=== PATIENT | female | born 1935 | race Caucasian/White ===

== ENCOUNTER 2017-01-12 10:38 | Outpatient (CLI) | payer MEDICARE ==
[2017-01-12 10:53] LABS: Anion Gap 13 mmol/L (10-20); BUN (Urea Nitrogen) 14 mg/dL (9.8-20.1); Calc. Creatinine Clearance 0 mL/min (70-130); Calcium 9.2 mg/dL (7.8-10.44); Carbon Dioxide 26 mmol/L (23-31); Chloride 109 mmol/L (98-107); Estimated GFR-MDRD 86; Glucose 100 mg/dL (83-110); Potassium 4.3 mmol/L (3.5-5.1); Sodium 144 mmol/L (136-145)
== END 2017-01-12 10:39 | disposition home or self-care (01) ==
LOC: MADLABBHPM 10:38
PROVIDERS: ATTEND Family Medicine
DX: R53.1 Weakness (principal)
CPT/HCPCS: 36415; 80048

== ENCOUNTER 2017-01-12 11:31 | Emergency (ER) | payer MEDICARE ==
[2017-01-12] MEDS ORDERED: cloNIDine HCl 0.1 MG TAB ONE (11:41)
[2017-01-12 12:09] LABS: #Eosinphils 0.1 thou/uL (0.0-0.7); #Lymphocytes 1.2 thou/uL (1.20-3.40); #Monocytes 0.3 thou/uL (0.11-0.59); %Basophils 0.6 % (0.0-1.0); %Eosinophils 2.9 % (0.0-10.0); %Lymphocytes 31.7 % (21.0-51.0); %Monocytes 8.7 % (0.0-10.0); %Neutrophils 56.2 % (42.0-75.0); Hemoglobin 12.9 g/dL (12.0-16.0); Mean Corpuscular HGB CONC 32.1 g/dL (32.0-36.0); Mean Corpuscular Hemoglobin 31.4 pg (27.0-31.0); Mean Corpuscular Volume 97.8 fl (81.0-99.0); Mean Platelet Volume 7.2 fL (7.4-10.4); Platelet Count 162 thou/uL (130-400); RBC Distribution Width 12.5 % (11.5-14.5); Red Blood Cell (RBC) Count 4.11 mill/uL (4.20-5.40); White Blood Cell (WBC) Count 3.6 thou/uL (4.8-10.8)
--- NOTE | 2017-01-12 12:11 | CT ---
CT BRAIN WITHOUT CONTRAST: HISTORY: Altered mental status. FINDINGS: There are changes of cortical atrophy and chronic small-vessel ischemic disease. The ventricle size is appropriate, and the basilar cisterns are patent. No evidence of acute infarct, hemorrhage, mid line shift, or abnormal extraaxial fluid collections are seen. The bony calvarium is intact. IMPRESSION: No CT evidence of acute intracranial process. POS: [facility]
--- NOTE | 2017-01-12 12:40 | RAD ---
RIGHT RIB TWO VIEW: History: Right rib pain with cough. Comparison: None. FINDINGS: No displaced fracture of the right ribs. Heart size is enlarged. Bibasilar atelectasis. No pneumothorax. The pulmonary arteries appear prominent. IMPRESSION: 1. No displaced rib fracture. 2. Enlarged pulmonary artery suggestive of pulmonary arterial hypertension. 3. Cardiomegaly and left basilar atelectasis. POS: [facility]
== END 2017-01-12 12:57 | disposition home or self-care (01) ==
LOC: MADERS 11:31
DX: I16.0 Hypertensive urgency (principal); M81.0 Age-related osteoporosis without current pathological fracture; K21.9 Gastro-esophageal reflux disease without esophagitis; Z87.891 Personal history of nicotine dependence; Z79.891 Long term (current) use of opiate analgesic; Z79.01 Long term (current) use of anticoagulants; Z79.899 Other long term (current) drug therapy; Z86.711 Personal history of pulmonary embolism; Z86.718 Personal history of other venous thrombosis and embolism
CPT/HCPCS: 70450; 85025; 93005

== ENCOUNTER 2017-06-05 19:41 | Emergency (ER) | payer MEDICARE ==
[2017-06-05] MEDS ORDERED: Morphine Sulfate 2 MG/ML SYRINGE ONE (20:01)
[2017-06-05] MEDS ORDERED: Diazepam 10 MG/2 ML SYRINGE ONE (20:01)
[2017-06-05 20:30] LABS: #Eosinphils 0.2 thou/uL (0.0-0.7); #Lymphocytes 1.1 thou/uL (1.20-3.40); #Monocytes 0.5 thou/uL (0.11-0.59); #Neutrophils 5.6 thou/uL (1.40-6.50); %Basophils 0.4 % (0.0-1.0); %Eosinophils 2.3 % (0.0-10.0); %Lymphocytes 15.3 % (21.0-51.0); %Monocytes 6.1 % (0.0-10.0); %Neutrophils 75.9 % (42.0-75.0); Hemoglobin 14.2 g/dL (12.0-16.0); Mean Corpuscular HGB CONC 33.5 g/dL (32.0-36.0); Mean Corpuscular Hemoglobin 32.6 pg (27.0-31.0); Mean Corpuscular Volume 97.1 fl (81.0-99.0); Mean Platelet Volume 8.2 fL (7.4-10.4); Platelet Count 154 thou/uL (130-400); RBC Distribution Width 12.2 % (11.5-14.5); Red Blood Cell (RBC) Count 4.36 mill/uL (4.20-5.40); White Blood Cell (WBC) Count 7.3 thou/uL (4.8-10.8)
[2017-06-05 20:40] LABS: ALT (SGPT) 9 U/L (8-55); AST (SGOT) 16 U/L (5-34); Albumin 3.5 g/dL (3.4-4.8); Alkaline Phosphatase 82 U/L (40-150); Anion Gap 13 mmol/L (10-20); BUN (Urea Nitrogen) 22 mg/dL (9.8-20.1); Bilirubin, Total 0.5 mg/dL (0.2-1.2); Calc. Creatinine Clearance 0 mL/min (70-130); Calcium 8.8 mg/dL (7.8-10.44); Carbon Dioxide 26 mmol/L (23-31); Chloride 108 mmol/L (98-107); Estimated GFR-MDRD 81; Globulin 2.6 g/dL (2.4-3.5); Glucose 121 mg/dL (83-110); Protein, Total 6.1 g/dL (6.0-8.3); Sodium 143 mmol/L (136-145)
[2017-06-05 20:41] LABS: CRP (Inflammatory) Less than 0.50 mg/dL (= or < 0.5); Lipase 23 U/L (8-78)
[2017-06-05 21:18] LABS: Clarity Clear (Clear); Leukocyte Negative (Negative); Specific Gravity, Urine 1.025 (1.005-1.030); pH, Urine 7.5 (5.0-9.0)
[2017-06-05 21:19] LABS: Bilirubin Negative (Negative); Blood, Urine Moderate (Negative); Glucose, Urine (Dipstick) Negative (Negative); Nitrite Negative (Negative); Protein, Urine (Dipstick) 30 mg/dL (Neg-Trace)
[2017-06-05 21:20] LABS: Squamous Epithelial 0-3 HPF (0-3)
[2017-06-05 21:21] LABS: Bacteria/HPF Rare-Few HPF (None Seen)
[2017-06-05] MEDS ORDERED: Ciprofloxacin 500 MG TAB ONE (21:54)
--- NOTE | 2017-06-05 22:36 | CT ---
CT LUMBAR SPINE WITHOUT CONTRAST: History: Low back pain. FINDINGS: Bones are diffusely osteopenic. There are changes of vertebroplasty involving the compressed L1 vert ebral body. Mild compression of T12 and T11 vertebral bodies is seen. There is also mild compression of the L2 vertebral body. No significant retropulsion is seen. POS: [facility]
--- NOTE | 2017-06-05 22:42 | CT ---
CT THORACIC SPINE WITHOUT CONTRAST: History: Back pain. FINDINGS: Bones are diffusely osteopenic. There are changes of vertebroplasty in the compressed L1 and descend ing vertebral bodies. Multiple compressed thoracic vertebral bodies are seen. No significant retropu lsion is seen. There is increased kyphosis of the thoracic spine. Compression of vertebral bodies is noted at T4, T5, T6, T7, T8, T9, T10, T11, and T12. POS: [facility]
== END 2017-06-05 23:37 | disposition short-term general hospital (02) ==
LOC: MADERS 19:41
DX: N39.0 Urinary tract infection, site not specified (principal); M81.0 Age-related osteoporosis without current pathological fracture; I10 Essential (primary) hypertension; D50.9 Iron deficiency anemia, unspecified; K21.9 Gastro-esophageal reflux disease without esophagitis; E78.00 Pure hypercholesterolemia, unspecified; J45.909 Unspecified asthma, uncomplicated; Z86.73 Personal history of transient ischemic attack (TIA), and cerebral infarction without residual deficits; Z87.891 Personal history of nicotine dependence; Z79.899 Other long term (current) drug therapy
CPT/HCPCS: 51701; 72128; 72131; 80053; 81001; 82150; 83690; 83880; 85025; 86140; 87086; 96374; 96375; A4353; J2270; J3360

== ENCOUNTER 2017-06-23 12:44 | Inpatient (IN) | payer MEDICARE ==
[2017-06-23] MEDS ORDERED: Milk Of Magnesia 30 ML UDCUP PO PRN (14:38)
[2017-06-23] MEDS: Acetaminophen 325 MG TAB PO SCH ×2 (15:34→20:47)
[2017-06-23] MEDS ORDERED: Furosemide 40 MG TAB PO PRN (18:09)
[2017-06-23] MEDS: Gabapentin 100 MG CAP PO SCH (20:47)
[2017-06-24 05:27] LABS: Hemoglobin 11.9 g/dL (12.0-16.0); Mean Corpuscular Hemoglobin 30.8 pg (27.0-31.0); Mean Corpuscular Volume 99.5 fl (81.0-99.0); Mean Platelet Volume 6.8 fL (7.4-10.4); Platelet Count 282 thou/uL (130-400); RBC Distribution Width 12.7 % (11.5-14.5); Red Blood Cell (RBC) Count 3.86 mill/uL (4.20-5.40)
[2017-06-24 05:29] LABS: ALT (SGPT) 13 U/L (8-55); AST (SGOT) 19 U/L (5-34); Albumin 3.2 g/dL (3.4-4.8); Alkaline Phosphatase 103 U/L (40-150); Anion Gap 15 mmol/L (10-20); BUN (Urea Nitrogen) 20 mg/dL (9.8-20.1); Bilirubin, Total 0.5 mg/dL (0.2-1.2); Calc. Creatinine Clearance 54 mL/min (70-130); Calcium 9.3 mg/dL (7.8-10.44); Carbon Dioxide 29 mmol/L (23-31); Cardiac Risk 2.4 (Less than 4.5); Chloride 103 mmol/L (98-107); Cholesterol 110 mg/dl (< 200 Desired); Estimated GFR-MDRD 59; Globulin 3.2 g/dL (2.4-3.5); Glucose 102 mg/dL (83-110); HDL Cholesterol 45 mg/dL (>60 Neg Risk); LDL Cholesterol, Calculated 48 mg/dL; Potassium 4.1 mmol/L (3.5-5.1); Protein, Total 6.4 g/dL (6.0-8.3); Sodium 143 mmol/L (136-145); Triglycerides 86 mg/dL (Less than 150)
[2017-06-24 05:34] LABS: Eosinophils 1 % (0-10); Lymphocytes 11 % (21-51); MDiff Complete? YES; Monocytes 4 % (0-10); Neutrophil 39 % (42-75); PLT Morphology Comment Appears Adequate; Reactive Lymphocytes 45 % (0-10)
[2017-06-24] MEDS: traMADol HCl 50 MG TAB PO PRN ×2 (05:34→16:02)
[2017-06-24] MEDS: Gabapentin 100 MG CAP PO SCH ×3 (08:40→20:55)
[2017-06-24] MEDS: Acetaminophen 325 MG TAB PO SCH (08:40)
[2017-06-24] MEDS: Ezetimibe 10 MG TAB PO SCH (08:40)
[2017-06-24] MEDS: TYLENOL 650 MG PO SCH ×2 (14:42→20:57)
[2017-06-24] MEDS: Mag-Al Plus 1200 MG/1200 MG/120 MG/30 ML UDCUP PO PRN (14:42)
[2017-06-24] MEDS: Rivaroxaban 10 MG TAB PO SCH (16:01)
[2017-06-24] MEDS: Clotrimazole 1% Cream 15 GM TUBE TOP SCH (20:56)
[2017-06-25] MEDS: Mag-Al Plus 1200 MG/1200 MG/120 MG/30 ML UDCUP PO PRN ×2 (07:14→21:08)
[2017-06-25] MEDS: Ezetimibe 10 MG TAB PO SCH (08:08)
[2017-06-25] MEDS: Gabapentin 100 MG CAP PO SCH ×3 (08:09→20:21)
[2017-06-25] MEDS: Clotrimazole 1% Cream 15 GM TUBE TOP SCH ×2 (08:13→21:07)
[2017-06-25] MEDS: TYLENOL 650 MG PO SCH ×3 (08:44→20:21)
[2017-06-25] MEDS: traMADol HCl 50 MG TAB PO PRN ×2 (11:59→21:06)
[2017-06-25] MEDS: Rivaroxaban 10 MG TAB PO SCH (16:01)
[2017-06-26] MEDS: traMADol HCl 50 MG TAB PO PRN (04:28)
[2017-06-26] MEDS: Ezetimibe 10 MG TAB PO SCH (08:29)
[2017-06-26] MEDS: TYLENOL 650 MG PO SCH ×3 (08:29→21:00)
[2017-06-26] MEDS: Clotrimazole 1% Cream 15 GM TUBE TOP SCH ×2 (08:29→21:03)
[2017-06-26] MEDS: Gabapentin 100 MG CAP PO SCH ×3 (08:29→21:01)
[2017-06-26] MEDS: Mag-Al Plus 1200 MG/1200 MG/120 MG/30 ML UDCUP PO PRN ×2 (08:53→22:41)
[2017-06-26] MEDS: tiZANidine HCl 4 MG TAB PO PRN ×2 (10:38→22:42)
[2017-06-26] MEDS: Rivaroxaban 10 MG TAB PO SCH (17:14)
[2017-06-27] MEDS: traMADol HCl 50 MG TAB PO PRN ×2 (04:41→15:31)
[2017-06-27] MEDS: tiZANidine HCl 4 MG TAB PO PRN ×2 (07:37→15:31)
[2017-06-27] MEDS: Mag-Al Plus 1200 MG/1200 MG/120 MG/30 ML UDCUP PO PRN (07:45)
[2017-06-27] MEDS: Clotrimazole 1% Cream 15 GM TUBE TOP SCH ×2 (07:54→19:48)
[2017-06-27] MEDS: Gabapentin 100 MG CAP PO SCH ×3 (08:50→19:49)
[2017-06-27] MEDS: TYLENOL 650 MG PO SCH ×3 (08:51→19:49)
[2017-06-27] MEDS: Ezetimibe 10 MG TAB PO SCH (08:51)
[2017-06-27] MEDS: HYDROcodone/Acetaminophen 5/325 mg Tablet PO PRN (10:19)
[2017-06-27] MEDS ORDERED: Furosemide 40 MG TAB PO PRN (10:26)
[2017-06-27] MEDS: Rivaroxaban 10 MG TAB PO SCH (17:16)
[2017-06-28] MEDS: traMADol HCl 50 MG TAB PO PRN (01:21)
[2017-06-28] MEDS: Mag-Al Plus 1200 MG/1200 MG/120 MG/30 ML UDCUP PO PRN (07:52)
[2017-06-28] MEDS: Ezetimibe 10 MG TAB PO SCH (08:45)
[2017-06-28] MEDS: Gabapentin 100 MG CAP PO SCH ×3 (08:45→21:46)
[2017-06-28] MEDS: TYLENOL 650 MG PO SCH ×3 (08:48→21:46)
[2017-06-28] MEDS: Clotrimazole 1% Cream 15 GM TUBE TOP SCH ×2 (08:57→21:45)
[2017-06-28] MEDS: Rivaroxaban 10 MG TAB PO SCH (17:37)
[2017-06-29] MEDS: traMADol HCl 50 MG TAB PO PRN (03:24)
[2017-06-29 04:47] LABS: Hemoglobin 11.1 g/dL (12.0-16.0); Platelet Count 185 thou/uL (130-400)
[2017-06-29] MEDS: TYLENOL 650 MG PO SCH ×3 (07:59→21:04)
[2017-06-29] MEDS: Gabapentin 100 MG CAP PO SCH ×3 (09:02→21:02)
[2017-06-29] MEDS: Clotrimazole 1% Cream 15 GM TUBE TOP SCH ×2 (09:03→21:03)
[2017-06-29] MEDS: Ezetimibe 10 MG TAB PO SCH (09:03)
[2017-06-29] MEDS ORDERED: HYDROcodone/Acetaminophen 5/325 mg Tablet PO PRN (09:42)
[2017-06-29] MEDS: Lidocaine 5% Patch TD SCH (10:17)
[2017-06-29] MEDS: Mag-Al Plus 1200 MG/1200 MG/120 MG/30 ML UDCUP PO PRN (12:09)
--- NOTE | 2017-06-29 14:45 | PRG ---
DATE OF SERVICE: 06/29/2017 SUBJECTIVE: The patient said she is feeling a little better. She did use the hydrocodone 5/325 one tablet and it does help very well with her back pain, but it seems to over sedate her. She asked t o allow her to take half up to 1 at a time. This morning, the approval was given and she has tried half tablet and it did help her without making her overly sedate. Her reflux seemed to be a little bit better. She is working with physical therapy. OBJECTIVE: The patient is sitting up in her wheelchair. She is alert and appears comfortable and i n no acute distress. Her vital signs show a temperature of 96.6, pulse 72, blood pressure 132/60, r espirations 14, O2 sat 95% on room air. Lungs are clear. Heart, regular rate. Patient is in a sea gracie position, but due to her marked kyphosis, her body is leaned forwarded and it places her neck in the hyperextended position. Her abdomen protrudes as a result of this positioning. Extremities, n o edema. Her labs show an H and H of 11.1 and 34.0, platelet count 185,000. Her GFR is 75. ASSESSMENT: 1. Weakness and gait abnormality. A. Slowly improving, but has not yet returned to a functional level where she could manage independ ently at home. 2. Severe osteoporosis. A. History of compression fractures of T4 through T12 and L1 and L2. B. Recent acute exacerbation, improving. 3. Gastroesophageal reflux disease. A. Recent exacerbation, improved. 4. Coronary artery disease, stable, asymptomatic. 5. Hypertension, controlled. 6. Venous insufficiency, stable. 7. History of cancer of the colon. Status post right hemicolectomy. No evidence of disease. PLAN: Continue PT and OT. Continue present medicines. Continue the antireflux measures.
[2017-06-29] MEDS: Rivaroxaban 10 MG TAB PO SCH (17:24)
[2017-06-29] MEDS: Lidocaine Patch Removal 1 EACH TOP SCH (21:03)
[2017-06-30] MEDS: tiZANidine HCl 4 MG TAB PO PRN ×2 (08:22→13:01)
[2017-06-30] MEDS: HYDROcodone/Acetaminophen 5/325 mg Tablet PO PRN (08:22)
[2017-06-30] MEDS: Ezetimibe 10 MG TAB PO SCH (08:24)
[2017-06-30] MEDS: Clotrimazole 1% Cream 15 GM TUBE TOP SCH ×2 (08:25→21:01)
[2017-06-30] MEDS: Gabapentin 100 MG CAP PO SCH ×3 (08:25→20:53)
[2017-06-30] MEDS: Lidocaine 5% Patch TD SCH (08:26)
[2017-06-30] MEDS: TYLENOL 650 MG PO SCH ×3 (08:30→20:53)
[2017-06-30] MEDS: traMADol HCl 50 MG TAB PO PRN (13:00)
[2017-06-30] MEDS: Rivaroxaban 10 MG TAB PO SCH (17:09)
[2017-06-30] MEDS: Lidocaine Patch Removal 1 EACH TOP SCH (20:54)
[2017-07-01 05:18] LABS: Platelet Count 157 thou/uL (130-400)
[2017-07-01] MEDS: tiZANidine HCl 4 MG TAB PO PRN (05:30)
[2017-07-01] MEDS: traMADol HCl 50 MG TAB PO PRN (05:30)
[2017-07-01] MEDS: Gabapentin 100 MG CAP PO SCH ×3 (09:03→21:45)
[2017-07-01] MEDS: Lidocaine 5% Patch TD SCH (09:03)
[2017-07-01] MEDS: Clotrimazole 1% Cream 15 GM TUBE TOP SCH ×2 (09:04→21:46)
[2017-07-01] MEDS: Ezetimibe 10 MG TAB PO SCH (09:04)
[2017-07-01] MEDS: TYLENOL 650 MG PO SCH ×3 (09:04→21:49)
--- NOTE | 2017-07-01 10:46 | PRG ---
DATE OF SERVICE: 07/01/2017 SUBJECTIVE: The patient said she feels a little washed out this morning. She had a little soreness in her back, but this is not unusual for her to have some days where her back is a little more pain ful. Last evening she had a drop in her pulse down to 48 with blood pressure in the 80s. Her propr anolol, Benazepril and amlodipine were all held and the blood pressure and pulse came up. OBJECTIVE: The patient is sitting in a chair. She is oriented x3, looks comfortable and in no acut e distress. Her temperature is 97.1. Her pulse is up 56, respirations 20, blood pressure earlier w as 86/43, but now is 113/60. Lungs are clear. Heart, regular rate. Extremities: No edema. Her H\T\H this morning is 11 and 33.4, platelet count 157,000. GFR 68. ASSESSMENT: 1. Weakness and gait abnormality. A. Gradually improving, but not yet to where she will be able to managed at home independently. 2. Severe osteoporosis. A. History of compression fractures of T4 through T12 and L1 and L2. B. Recent acute exacerbation that is improving. 3. Gastroesophageal reflux disease. A. Recent exacerbation, improved. 4. Coronary heart disease, stable, asymptomatic. 5. Hypertension. A. Episode of hypotension and bradycardia on the evening of 06/30/2017, secondary to the effect of m edication. This has improved since the Inderal and amlodipine and benazepril has been held. 6. Venous insufficiency, stable. 7. History of cancer of the colon. Status post right hemicolectomy. No evidence of disease. 8. Tremors, stable. PLAN: The patient is gradually improving. The hypotensive and bradycardic episode yesterday is fro m the effect of the medicines. The medicines have been held. Anticipate that her pressure will gra dually rises and we will probably have to restart her antihypertensives. She was on benazepril 20 m g b.i.d. and we will probably first restart this may be just 1 time a day. The propranolol she was receiving for her tremors, her tremors are stable and we will see if we can get by without this. Th e amlodipine, we will just wait and see if this will need to be restarted. 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
[2017-07-01] MEDS: Rivaroxaban 10 MG TAB PO SCH (18:08)
[2017-07-01] MEDS: Lidocaine Patch Removal 1 EACH TOP SCH (21:50)
[2017-07-02] MEDS: traMADol HCl 50 MG TAB PO PRN (03:36)
[2017-07-02] MEDS: tiZANidine HCl 4 MG TAB PO PRN ×2 (03:38→19:20)
[2017-07-02] MEDS: TYLENOL 650 MG PO SCH ×3 (08:27→20:42)
[2017-07-02] MEDS: Gabapentin 100 MG CAP PO SCH ×3 (08:27→20:41)
[2017-07-02] MEDS: Ezetimibe 10 MG TAB PO SCH (08:27)
[2017-07-02] MEDS: Clotrimazole 1% Cream 15 GM TUBE TOP SCH ×2 (08:28→20:41)
[2017-07-02] MEDS: Lidocaine 5% Patch TD SCH (08:28)
[2017-07-02] MEDS: Rivaroxaban 10 MG TAB PO SCH (17:15)
--- NOTE | 2017-07-02 17:17 | PRG ---
DATE OF SERVICE: 07/02/2017 SUBJECTIVE: The patient said, this morning, she just woke up and felt like she was shaking. She no ticed severe tremors in her arms, her back, particularly on the right side. Her blood pressures hav e been normal. Her pulse rate has also been up at 104 this morning. OBJECTIVE: GENERAL: The patient is sitting in a Nell chair, looks comfortable, but has severe tremors in the a ke, particularly on the right side. VITAL SIGNS: Her temperature is 97.2, pulse 72, respirations 20, blood pressure 141/70, and O2 sat 98%. LUNGS: Clear. HEART: Regular rate. ASSESSMENT: 1. Weakness and gait abnormality. A. Gradually improving, but not yet where she could manage at home independently. 2. Severe osteoporosis. A. History of compression fractures of T4 through T12 and L1 and L2, the recent acute exacerbat ion that continues to improve. 3. Gastroesophageal reflux disease, a recent exacerbation, improved and controlled. 4. Coronary heart disease, asymptomatic. 5. Hypertension, controlled. A. Episode of hypotension and bradycardia secondary to the combined effect of the benazepril, amlodipine and the Inderal has resolved. Blood pressure now 140/70 and pulse up to 72. 6. Venous insufficiency, stable. 7. History of cancer of the colon. A. Status post right hemicolectomy. B. No evidence of disease. 8. Intention tremors. A. Marked increased symptoms today since she has been off of the Inderal 40 mg b.i.d. since 06/21. PLAN: Patient is doing alright, but she has had severe problems with her tremors. The Inderal 40 m g b.i.d. has to be stopped due to the bradycardia and as a result, her tremors have come back. Sinc e her blood pressure and pulse have normalized, we will try reintroduction of beta lacho using Ind [place], but at a lower dose. We will place her on 20 mg b.i.d. and see how she tolerates this. Ge carver PT.
[2017-07-02] MEDS ORDERED: Rivaroxaban 10 MG TAB PO SCH (17:30)
[2017-07-02] MEDS: Lidocaine Patch Removal 1 EACH TOP SCH (20:42)
[2017-07-03 07:28] LABS: Hemoglobin 12.6 g/dL (12.0-16.0); Platelet Count 182 thou/uL (130-400)
[2017-07-03] MEDS: Lidocaine 5% Patch TD SCH (09:03)
[2017-07-03] MEDS: Ezetimibe 10 MG TAB PO SCH (09:04)
[2017-07-03] MEDS: Clotrimazole 1% Cream 15 GM TUBE TOP SCH ×2 (09:04→21:15)
[2017-07-03] MEDS: Gabapentin 100 MG CAP PO SCH ×3 (09:04→21:19)
[2017-07-03] MEDS: TYLENOL 650 MG PO SCH ×3 (09:05→21:18)
[2017-07-03] MEDS: traMADol HCl 50 MG TAB PO PRN ×2 (13:16→21:17)
[2017-07-03] MEDS: tiZANidine HCl 4 MG TAB PO PRN ×2 (13:18→21:17)
[2017-07-03] MEDS: Rivaroxaban 10 MG TAB PO SCH (17:17)
[2017-07-03] MEDS: Lidocaine Patch Removal 1 EACH TOP SCH (21:19)
[2017-07-04] MEDS: Lidocaine 5% Patch TD SCH (08:38)
[2017-07-04] MEDS: Gabapentin 100 MG CAP PO SCH ×3 (08:39→20:38)
[2017-07-04] MEDS: Clotrimazole 1% Cream 15 GM TUBE TOP SCH ×2 (08:39→20:41)
[2017-07-04] MEDS: TYLENOL 650 MG PO SCH ×3 (08:39→20:41)
[2017-07-04] MEDS: Ezetimibe 10 MG TAB PO SCH (08:39)
--- NOTE | 2017-07-04 09:03 | PRG ---
DATE OF SERVICE: 07/04/2017 SUBJECTIVE: The patient said she feels very good today. Her tremors are much better and not bother ing her this morning. The patient said her back is much better. She is hoping to go home soon. OBJECTIVE: The patient is sitting up in a chair, smiling. She has no tremors in her hand, looks ve ry comfortable and in no distress. Temp 96.7, pulse 90, respirations 18, O2 sat 97% on room air, bl ood pressure 136/63. Lungs are clear. Heart, regular rate. Extremities: No edema. Neurologic, a lert and oriented x3. Tremors, there are none present in the arms at present. ASSESSMENT: 1. Weakness and gait abnormality. A. Gradual improvement. 2. Severe osteoporosis. A. History of compression fractures at T4 through T12 and L1 and L2. Recent acute exacerbation vannesa t continues to improve. 3. Gastroesophageal reflux disease. A. Recent acute exacerbation, controlled. 4. Coronary heart disease, asymptomatic. 5. Hypertension. A. Episode of hypotension, bradycardia secondary to a combined effect of the benazepril, amlodipin e and Inderal that were stopped. B. Inderal, has been restarted at a lower dose that is 20 mg b.i.d. due to a recurrence of her sever e tremors. Blood pressure and pulse have both been normal with no more hypotensive or bradycardic e pisodes as of 07/04/2017. 6. Venous insufficiency, stable. 7. History of cancer of the colon. A. Status post right hemicolectomy. B. No evidence of disease. 8. Intention tremors. A. Marked increase in symptoms as of 07/03/2017 after Inderal was stopped, necessitating restarting of the Inderal at a lower dose i.e., 20 mg b.i.d. on 07/03/2017. B. Controlled as of 07/04/2017. PLAN: Continue present care. Continue physical therapy. The patient's condition is improved, but she is not ready to return to her home where she lives by herself and it is recommended that she st ay at least another week to try to help improve her functional capabilities.
[2017-07-04] MEDS: Rivaroxaban 10 MG TAB PO SCH (17:21)
[2017-07-04 20:01] VITALS: BMI 32.9
[2017-07-04] MEDS: tiZANidine HCl 4 MG TAB PO PRN (20:39)
[2017-07-04] MEDS: Lidocaine Patch Removal 1 EACH TOP SCH (20:39)
[2017-07-05 06:15] LABS: Platelet Count 143 thou/uL (130-400)
[2017-07-05] MEDS: traMADol HCl 50 MG TAB PO PRN (08:19)
[2017-07-05] MEDS: tiZANidine HCl 4 MG TAB PO PRN ×2 (08:19→13:32)
[2017-07-05] MEDS: Ezetimibe 10 MG TAB PO SCH (08:20)
[2017-07-05] MEDS: Gabapentin 100 MG CAP PO SCH ×3 (08:20→20:37)
[2017-07-05] MEDS: Lidocaine 5% Patch TD SCH (08:21)
[2017-07-05] MEDS: Clotrimazole 1% Cream 15 GM TUBE TOP SCH ×2 (08:21→20:39)
[2017-07-05] MEDS: TYLENOL 650 MG PO SCH ×3 (08:21→21:25)
[2017-07-05] MEDS: Rivaroxaban 10 MG TAB PO SCH (17:06)
[2017-07-05] MEDS: Lidocaine Patch Removal 1 EACH TOP SCH (20:40)
[2017-07-06] MEDS: TYLENOL 650 MG PO SCH ×4 (00:12→20:18)
[2017-07-06] MEDS: tiZANidine HCl 4 MG TAB PO PRN (03:47)
[2017-07-06] MEDS ORDERED: Acetaminophen 325 MG TAB PO PRN (07:45)
[2017-07-06] MEDS: Ezetimibe 10 MG TAB PO SCH (08:39)
[2017-07-06] MEDS: Gabapentin 100 MG CAP PO SCH ×3 (08:39→20:15)
[2017-07-06] MEDS: Lidocaine 5% Patch TD SCH (08:39)
[2017-07-06] MEDS: Clotrimazole 1% Cream 15 GM TUBE TOP SCH ×2 (08:40→20:13)
[2017-07-06] MEDS: Rivaroxaban 10 MG TAB PO SCH (16:57)
[2017-07-06] MEDS: traMADol HCl 50 MG TAB PO PRN (19:35)
[2017-07-06] MEDS: Lidocaine Patch Removal 1 EACH TOP SCH (20:18)
[2017-07-07] MEDS: traMADol HCl 50 MG TAB PO PRN ×2 (03:23→20:41)
[2017-07-07] MEDS: tiZANidine HCl 4 MG TAB PO PRN ×2 (03:24→20:41)
[2017-07-07 05:49] LABS: Hemoglobin 9.9 g/dL (12.0-16.0); Platelet Count 135 thou/uL (130-400)
[2017-07-07] MEDS: TYLENOL 650 MG PO SCH ×3 (08:38→20:44)
[2017-07-07] MEDS: Clotrimazole 1% Cream 15 GM TUBE TOP SCH ×2 (08:40→20:43)
[2017-07-07] MEDS: Gabapentin 100 MG CAP PO SCH ×3 (08:40→20:42)
[2017-07-07] MEDS: Lidocaine 5% Patch TD SCH (08:40)
[2017-07-07] MEDS: Ezetimibe 10 MG TAB PO SCH (08:40)
[2017-07-07] MEDS: Rivaroxaban 10 MG TAB PO SCH (17:13)
--- NOTE | 2017-07-07 17:56 | PRG ---
DATE OF SERVICE: 07/07/2017 SUBJECTIVE: The patient said she is doing better. Her back is feeling about like it ordinarily torres s. She has good days and bad days. Overall, she thinks she is better and her strength is better. She is transferring easier. The patient's thinks her condition is such that she would like to go [place] tomorrow and states her son and [id number] live next door are there to assist her and home h ealt will come in also to assist. She does have Medi Alert and she thinks with her small house, [place] is right there where she needs it and she will be fine. OBJECTIVE: GENERAL: The patient is sitting up in a bedside chair. She looks very comfortable, in no distress. VITAL SIGNS: Her temperature is 96.7, her pulse 51, respirations 20, O2 saturation 97% on room air, blood pressure 119/58. LUNGS: Clear. HEART: Regular rate. EXTREMITIES: No edema. NEUROLOGIC: The patient presently is not having any tremors. LABORATORY DATA: Her lab shows an H\T\H of 9.9 and 30.4, platelet count 135,000, creatinine 0.68, G FR 83. ASSESSMENT: 1. Weakness and gait abnormality, improved. 2. Severe osteoporosis. A. History of compression fractures of T4 through T12 and L1 and L2, recent acute exacerbation that continues to improve. 3. Gastroesophageal reflux disease, recent acute exacerbation, controlled. 4. Coronary heart disease, asymptomatic. 5. Hypertension. A. Episode of hypotension, bradycardia secondary to the combined effect of benazepril and amlodipin e and Inderal that were stopped. The Inderal has been restarted at reduced dose i.e. 20 mg b.i.d. d ue to a severe recurrence of her severe tremors. Blood pressure has been controlled without hypoten sive episodes. Her pulses down in the 50s and is symptomatic and her tremors are well controlled. 6. Venous insufficiency, stable. 7. History of cancer of the colon. A. Status post right hemicolectomy. B. No evidence of disease. 8. Intention tremors. A. Marked increase in symptoms as of 07/03/2017 after Inderal was stopped. Inderal was restarted d ue to the severe tremors as lower dose 20 mg b.i.d. on 07/03/2017. B. Controlled as of 07/07/2017. PLAN: Continue present care. Continue present medicines. Continue PT and OT. Anticipate discharg e tomorrow. We will arrange for home health to look in her care. She will visit her family to make sure all preparations at home are ready for her arrival tomorrow.
[2017-07-07] MEDS: Lidocaine Patch Removal 1 EACH TOP SCH (20:43)
[2017-07-08] MEDS: Gabapentin 100 MG CAP PO SCH (08:13)
[2017-07-08] MEDS: Ezetimibe 10 MG TAB PO SCH (08:14)
[2017-07-08] MEDS: Clotrimazole 1% Cream 15 GM TUBE TOP SCH (08:16)
[2017-07-08] MEDS: Lidocaine 5% Patch TD SCH (08:16)
[2017-07-08] MEDS: TYLENOL 650 MG PO SCH (08:42)
[2017-07-08 08:57] VITALS: BP 165/57; TEMP 98.3
[2017-07-08] MEDS: traMADol HCl 50 MG TAB PO PRN (11:19)
[2017-07-08] MEDS: tiZANidine HCl 4 MG TAB PO PRN (11:20)
[2017-07-08] MEDS ORDERED: HYDROcodone/Acetaminophen 5/325 mg Tablet PO PRN (11:40)
[2017-07-08] MEDS ORDERED: tiZANidine HCl 4 MG TAB PO PRN (11:40)
[2017-07-08] MEDS ORDERED: Acetaminophen 325 MG TAB PO PRN (11:40)
[2017-07-08] MEDS ORDERED: Milk Of Magnesia 30 ML UDCUP PO PRN (11:40)
[2017-07-08] MEDS ORDERED: Lidocaine 5% Patch TD PRN (11:40)
[2017-07-08] MEDS ORDERED: Mag-Al Plus 1200 MG/1200 MG/120 MG/30 ML UDCUP PO PRN (11:40)
[2017-07-08] MEDS ORDERED: Furosemide 40 MG TAB PO PRN (11:40)
[2017-07-08] MEDS ORDERED: traMADol HCl 50 MG TAB PO PRN (11:40)
--- NOTE | 2017-07-08 17:47 | DIS ---
DATE OF ADMISSION: 06/23/2017 DATE OF DISCHARGE: 07/08/2017 FINAL DIAGNOSES: 1. Weakness and gait abnormality, improved. 2. Severe osteoporosis. A. History of compression fractures at T4 through T12 and L1 and L2 with recent acute exacerbation that left her with severe pain and unable to take care of herself. 3. Gastroesophageal reflux disease. A. Recent acute exacerbation, controlled. 4. Coronary heart disease, asymptomatic. 5. Hypertension. A. Episode of hypotension and bradycardia secondary to combined effect of benazepril, amlodipine, a nd Inderal that was stopped. Bradycardia and hypotension resolved. Inderal had to be restarted at reduced dose, i.e., 20 mg b.i.d. due to severe recurrence of her severe tremors. Blood pressure and pulse have been adequate on this lower dose of Inderal. 6. Venous insufficiency of the lower extremities, stable. 7. History of cancer of the colon. A. Status post right hemicolectomy. B. No evidence of disease. 8. Intention tremors. A. Marked increase in symptoms as of 07/03/2017 after Inderal was stopped. Inderal had to be resta rted at a reduced dose that is 20 mg b.i.d. B. Controlled as of 07/07/2017. 9. Recurrent deep vein thrombosis. A. Initially bilateral deep vein thrombosis, complicated by pulmonary embolism, following diaphragm atic hernia repair on 03/2013. B. Recurrent deep venous thrombosis in the right leg in 01/2016. C. Long-term anticoagulants with Xarelto. D. Presently asymptomatic. 10. Aortic regurgitation, moderate to severe. 11. History of adenocarcinoma of the ascending colon. A. Status post right hemicolectomy in 1997. B. Last colonoscopy in 03/2017 showed no evidence of recurrence and good anastomosis. REASON FOR ADMISSION: The patient is an 82-year-old white female, who has a history of severe osteo porosis complicated by multiple thoracolumbar compression fractures that have left her with a marked kyphosis and limitation of her activities. This has been complicated by some dysphagia and shortne ss of breath with exertion. She has a history of coronary artery disease, for which she has had a s tent and has been asymptomatic over the last few years. 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 She lives alone and is independent of her ADLs and is able to ambulate with the use of a walker. Her khai rodriguez lives in the house immediately next door to her and desires to assist her. They also assist wi th all of her instrumental ADLs. The patient had marked increase in her back pain leaving her unabl e to take care of herself for even to walk. She was hospitalized at [facility] on 06/06/2017 with severe spasms, this was controlled and then she was transferred to [facility] rehab, where she remained until 06/23/2017. Her pain, spasms had been reasonably controlled, bu t she was still left very weak and she underwent a CT scan of her spine during the acute hospital [facility] that showed compression fractures of T4 through T12 and L1 and L2, there was no nerve compression or cord compression. It was felt that she had an acute exacerbation of her severe osteoporotic spi ne with possible increased some areas of compressing further. Her pain was managed with tramadol an d low dose Vicodin. The severe kyphotic spine prevented any type of back splinting. The patient was admitted to [facility] on 06/23/2017 for continued therapy in an effort t o try to improve her general strength, deconditioning, and functional capability. Her goals were re turned to her home, also to continue to manage her pain. During her hospitalization, the patient di d experience very severe tremors in her hands with her chronic right much worse than left, usually s evere enough that made it very difficult for her to feed herself. She was restarted on her Inderal 40 mg b.i.d. with good control of this. The patient then had an episode of hypotension and bradycar lm with heart rate down in the low 40s. She was placed at bed rest with improvement in blood press ure. Her benazepril, propranolol, and amlodipine were all stopped. The hypotension resolved and br adycardia resolved. The patient required reinitiation of the lower dose of the Inderal i.e., 20 mg b.i.d. due to severe recurrence of her tremors. This low dose seemed to control her tremors very we ll. She did not have any more severe bradycardic episode. Her pulses were in the 60s. Her blood p ressure shyam some on the day of her discharge, her pulse was 64, and blood pressure 165/57. At home , this will require continued monitoring. At some point, she may require reinitiation of some of he r BP medicines. The patient did also have exacerbation of her gastroesophageal reflux disease. Thi s was controlled with pantoprazole and also Mylanta on an as needed basis. Her pain seemed to be we ll controlled. The spasms were well controlled with Zanaflex 4 mg t.i.d. as needed. The Ultram 50 mg was used every 8 hours as needed and then she had the hydrocodone 5/325 where she take a half a t ablet every 8 hours in the event the tramadol did not work. She only rarely had to use this. She c ontinued to improve. She worked hard with physical therapy and made good progress with them. By th e time of her discharge, she was walking up to 200 feet twice today with her rolling walker and was able to transfer independently with just standby assistance. The patient's condition had improved s uch that she felt that she could manage fine in her home. She said everything is situated right the re close and she has a MediAlert. Her son and [id number] live immediately next door and are th ere constantly to assist her. They have prepared her home and she feels like she will be fine. At this point, she does not want home health or any in home physical therapy, but if she sees she needs this, this will be arranged. The patient was discharged on 07/08/2017 with her pain well controlle d, her reflux controlled, and her functional capabilities back to her baseline. The patient will mo nitor her BP at home. DISPOSITION: DIET: Regular diet. No added salt. ACTIVITIES: Ambulate with the use of a walker. FOLLOWUP: Patient will be seen in my office in 2 weeks with a CBC and basic metabolic panel. The p atient will monitor blood pressure at home with this consistently runs above 150/90, will contact my office. MEDICATIONS: Acetaminophen 325 mg 2 every 4 hours as needed, tramadol 50 mg 1 every 8 hours as need ed, hydrocodone/acetaminophen 5/325 half a tablet every 8 hours if needed. When the tramadol has no t helped, lidocaine patches applied to the back for 12 hours, Mylanta 30 mL every 4 hours as needed, pantoprazole 40 mg daily, Zetia 10 mg daily, furosemide 40 mg daily as needed for swelling, gabapen tin 100 mg t.i.d., Milk of Magnesia 30 mL daily as needed, Inderal 20 mg b.i.d., Xarelto 15 mg daily , Crestor 20 mg daily, and Zanaflex 4 mg every 8 hours as needed. CODE STATUS: FULL CODE.
[2017-07-10] MEDS ORDERED: TYLENOL 650 MG PO SCH (09:00)
[2017-07-10] MEDS ORDERED: Gabapentin 100 MG CAP PO SCH ×2 (09:00)
[2017-07-10] MEDS ORDERED: Ezetimibe 10 MG TAB PO SCH (09:00)
[2017-07-10] MEDS ORDERED: Clotrimazole 1% Cream 15 GM TUBE TOP SCH (09:00)
[2017-07-10] MEDS ORDERED: Lidocaine Patch Removal 1 EACH TOP SCH (21:00)
== END 2017-07-08 11:40 | disposition home health service (06) | DRG 948 ==
LOC: MADMS 12:44
PROVIDERS: ADMIT Family Medicine; ATTEND Family Medicine
DX: R53.1 Weakness (principal); G62.9 Polyneuropathy, unspecified; R00.1 Bradycardia, unspecified; R26.9 Unspecified abnormalities of gait and mobility; K21.9 Gastro-esophageal reflux disease without esophagitis; I25.10 Atherosclerotic heart disease of native coronary artery without angina pectoris; I10 Essential (primary) hypertension; I95.2 Hypotension due to drugs; T46.4X5A Adverse effect of angiotensin-converting-enzyme inhibitors, initial encounter; Y92.239 Unspecified place in hospital as the place of occurrence of the external cause; T44.7X5A Adverse effect of beta-adrenoreceptor antagonists, initial encounter; T46.1X5A Adverse effect of calcium-channel blockers, initial encounter; Z85.038 Personal history of other malignant neoplasm of large intestine; G25.2 Other specified forms of tremor; Z86.711 Personal history of pulmonary embolism; Z86.718 Personal history of other venous thrombosis and embolism; Z79.01 Long term (current) use of anticoagulants; I35.1 Nonrheumatic aortic (valve) insufficiency; Z95.5 Presence of coronary angioplasty implant and graft; M80.88XD Other osteoporosis with current pathological fracture, vertebra(e), subsequent encounter for fracture with routine healing; M40.209 Unspecified kyphosis, site unspecified; I87.2 Venous insufficiency (chronic) (peripheral); Z88.8 Allergy status to other drugs, medicaments and biological substances; Z88.5 Allergy status to narcotic agent; E78.00 Pure hypercholesterolemia, unspecified; M47.9 Spondylosis, unspecified; J45.909 Unspecified asthma, uncomplicated
CPT/HCPCS: 36415; 80053; 80061; 82565; 84443; 85014; 85018; 85025; 85049; G8978-GP-CK; G8979-GP-CI

== ENCOUNTER 2017-07-09 19:40 | Inpatient (IN) | payer MEDICARE ==
[~2017-07-09 19:40] MED LIST: Milk Of Magnesia 30 ML UDCUP PO PRN
[2017-07-09] MEDS ORDERED: Ondansetron HCl/PF 4 MG/2 ML Vial ONE (20:05)
[2017-07-09 20:30] LABS: ALT (SGPT) 9 U/L (8-55); AST (SGOT) 16 U/L (5-34); Albumin 3.3 g/dL (3.4-4.8); Alkaline Phosphatase 97 U/L (40-150); Anion Gap 15 mmol/L (10-20); BUN (Urea Nitrogen) 10 mg/dL (9.8-20.1); Bilirubin, Total 0.5 mg/dL (0.2-1.2); Calc. Creatinine Clearance 0 mL/min (70-130); Calcium 8.7 mg/dL (7.8-10.44); Carbon Dioxide 22 mmol/L (23-31); Chloride 109 mmol/L (98-107); Estimated GFR-MDRD 86; Globulin 2.5 g/dL (2.4-3.5); Glucose 109 mg/dL (83-110); Potassium 3.9 mmol/L (3.5-5.1); Protein, Total 5.8 g/dL (6.0-8.3); Sodium 142 mmol/L (136-145)
[2017-07-09 20:33] LABS: CKMB 0.8 ng/mL (0-6.6); Troponin I Less than 0.010 ng/mL (< 0.028)
--- NOTE | 2017-07-09 20:50 | RAD ---
EXAM: ONE VIEW CHEST 07/09/17 COMPARISON: 03/02/06 HISTORY: Nausea and vomiting. FINDINGS: Portable upright chest demonstrates increased density projecting over the cardiac silhouette. Limite d evaluation due to technique. Better interrogation with two view chest radiograph is recommended. IMPRESSION: Increased density projecting over the cardiac silhouette likely due to technique. Repeat imaging wit h two view chest radiograph is recommended. POS: [facility]
[2017-07-10] MEDS ORDERED: Furosemide 40 MG TAB PO PRN ×3 (00:42→09:03)
[2017-07-10] MEDS ORDERED: Mag-Al Plus 1200 MG/1200 MG/120 MG/30 ML UDCUP PO PRN ×2 (00:42→09:03)
[2017-07-10] MEDS ORDERED: HYDROcodone/Acetaminophen 5/325 mg Tablet PO PRN ×2 (00:43→09:03)
[2017-07-10] MEDS ORDERED: Lidocaine 5% Patch TD PRN (00:43)
[2017-07-10] MEDS: traMADol HCl 50 MG TAB PO PRN (02:16)
[2017-07-10 06:50] LABS: Clarity Clear (Clear); Glucose, Urine (Dipstick) Negative (Negative); Leukocyte Trace (Negative); Nitrite Negative (Negative); Protein, Urine (Dipstick) Trace mg/dL (Neg-Trace); Specific Gravity, Urine 1.015 (1.005-1.030)
[2017-07-10 06:51] LABS: Bilirubin Negative (Negative); Blood, Urine Moderate (Negative); Squamous Epithelial 0-3 HPF (0-3); Urobilinogen 0.2 mg/dL (0.2-1.0)
[2017-07-10 06:52] LABS: Bacteria/HPF Rare-Few HPF (None Seen); Renal Epithelial 0-3 HPF (0-3)
[2017-07-10] MEDS: Gabapentin 100 MG CAP PO SCH ×3 (08:17→21:30)
[2017-07-10] MEDS: Ezetimibe 10 MG TAB PO SCH (08:18)
[2017-07-10] MEDS: Acetaminophen 325 MG TAB PO PRN ×2 (08:23→14:23)
[2017-07-10] MEDS ORDERED: Acetaminophen 325 MG TAB PO SCH (09:00)
[2017-07-10] MEDS ORDERED: traMADol HCl 50 MG TAB PO PRN (09:03)
[2017-07-10] MEDS ORDERED: Acetaminophen 325 MG TAB PO PRN (09:03)
[2017-07-10] MEDS ORDERED: Non-Formulary Item 1 EACH (Tizanidine Hcl [Zanaflex] 4 MG) PO PRN (09:03)
[2017-07-10] MEDS ORDERED: Milk Of Magnesia 30 ML UDCUP PO PRN (09:03)
[2017-07-10] MEDS ORDERED: Gabapentin 100 MG CAP PO SCH (15:00)
[2017-07-10] MEDS: Rivaroxaban 10 MG TAB PO SCH (16:53)
--- NOTE | 2017-07-10 16:58 | HP ---
DATE OF ADMISSION: 07/09/2017 CHIEF COMPLAINT: Weakness, not able to manage at home and nauseated. HISTORY OF PRESENT ILLNESS: The patient is an 82-year-old white female who has a history of severe osteoporosis complicated by multiple thoracolumbar compression fractures that left her with a marked kyphosis limitation of her activities. This has been complicated by some mild dysphagia and shortn ess breath with exertion. She has a history of coronary artery disease for which she has had a sten t and it is remains asymptomatic over the last few years. She has hypertension, TIAs, peripheral ne uropathy of the lower extremities, and severe intention tremors that have been controlled with Javon al. She lives alone, is independent of her ADLs and able to ambulate with the use of a walker. Her family lives next door and able to assist her where needing with her instrumental ADLs. The patiraegan t had a recent acute exacerbation of pain in her back with possibly some increased compression in th e multiple thoracolumbar compression fractures. Historically, she has had fractures of T4 through T 12 and L1-L2. This required hospitalization initially at [facility] on 06/06/2017 with s magdiel spasms. These were controlled and she was discharged to her [facility] rehabilitation. The re she remained until 06/23/2017. She was then admitted to [facility] to usp care from 06/23/2017 until 07/08/2017. Her pain was well managed and she was taking Tylenol on a regula r basis, tramadol if needed, and on occasionally, she would take a half of hydrocodone/acetaminophen 5/325. She was ambulating well and she said she was transferring with just standby assistance. efren felt she was insistent upon going home on 07/08/2017. She felt her strength was adequate and thou ght she would be fine with a help of her family who lives next door. She also did not at that time want home health with felt like they could handle things fine. The patient was brought back to the emergency room on late afternoon of 07/09/2017. She had been ho me for a little over 24 hours. Patient said at home, her condition was one of progressive increased weakness and inability to hardly get up and around her home. She said she would get a little winde d with activities. She was not able to get around in the house and she was not able to take care of herself. Her family tried to assist her by the afternoon of 07/09/2017, she was weaker, was uncomf ortable and nauseated, but had no vomiting. The patient was reevaluated in the emergency room and s odium was 142, potassium 3.9. Her BUN was 10, creatinine 0.66, glucose was 109, GFR was 86. Her ur ine showed 11-20 rbc's, 4-6 wbc's, nitrite was negative. Her chest x-ray was limited evaluation due to technique. They felt there was some density overlying the cardiac silhouette that was probably from the technique and possibly also due to her severe kyphosis, I have reviewed this myself and tsering g hassan all look normal. This patient was readmitted to usp facility due to her increa sed weakness and nausea and inability to take care of herself and [facility] The patient was reevaluated on the morning of 07/10/2017, she said she felt that the nausea had reso lved, but she just felt weak. The patient said she feels like she just went home too soon, which is not able to take care of herself. PAST HISTORY: Hospitalized at [facility] on 03/23/2017 to 07/08/2017 for the weakness, gait a bnormality, and severe osteoporosis complicated by compression fractures of T4 through T12 and L1 an d L2 with recent acute exacerbation, gastroesophageal reflux disease with some narrowing of the dist al esophagitis for which she has undergone dilation, also had a Shaggy fundoplication in 2012 and re cent exacerbation of the history and hospitalization on 06/23/2017 that had been controlled with the addition of pantoprazole and antireflux measures. 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 The patient had another episode of DV T after her diaphragmatic hernia repair. Patient had a kyphoplasty in 01/2013 for compression fract ure. Fracture of the left hip requiring bipolar arthroplasty of the left hip in 02/2016, appendecto my, hemorrhoidectomy, tonsillectomy, and peripheral neuropathy of the lower extremity. 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 PRESENT MEDICINES: Acetaminophen 325 mg to schedule twice a day and every 4 hours as needed, tramad ol 50 mg 1 q.8 hours as needed, hydrocodone/acetaminophen 5/325 half a tablet every 8 hours if neede d if the tramadol has not worked, lidocaine patch is applied to the back for 12 hours and off for 12 hours, Mylanta 30 mL every 4 hours as needed, pantoprazole 40 mg daily, Zetia 10 mg daily, furosemi de 40 mg daily for swelling, gabapentin 100 mg t.i.d., Milk of Magnesia 30 mL daily as needed, Javon al 20 mg b.i.d., Xarelto 15 mg daily, Crestor 20 mg daily, Zanaflex 4 mg every 8 hours as needed. ALLERGIES: ALENDRONATE, FLEXERIL, DEXTROMETHORPHAN, SENTINEL, GUAIFENESIN, NAPROSYN, THORAZINE, YEL LOW DYE, VICODIN, but able to take the hydrocodone, skelaxin. REVIEW OF SYSTEMS: The patient said she does not think her weight has changed. She said she had a little low grade fever on the afternoon of the readmissions on 07/09/2017. HEAD AND NECK: No complaints. PULMONARY: The patient said her breathing seemed to be better today, particularly at rest. She get s mildly short of breath with exertion, but this is chronic. CARDIOVASCULAR: No chest pain. GASTROINTESTINAL: The nausea has resolved. She has had no vomiting, and no diarrhea. GENITOURINARY: No complaints. ADLs: The patient ambulates with the use of a walker, requires help with dressing, bathing. Able t o feed herself. As long as her intention and tremors are controlled. Since she went to home though her ability to take care of herself, markedly declined in this 24 hours since her discharge home on 07/08/2017. Instrumental ADLs, requires assistance with all of these. HABITS: Alcohol none. Tobacco none. SOCIAL HISTORY: Patient is a . Patient is a retired nurse. The patient lives in her home [facility], but has a son and a [id number] who live next door that assists her. CODE STATUS: FULL CODE. PHYSICAL EXAMINATION: GENERAL: An 82-year-old white female who was lying on bed with the head elevated. She has marked k yphosis and neck is little extended to help correct for the kyphosis. She appears a little depresse d, having to come back to the hospital, but does not appear in any acute distress. VITAL SIGNS: Temperature is 97.4, pulse 74, respirations 18, O2 sat 96%. Her blood pressure 177/74 . HEAD: Normocephalic and atraumatic. EYES: Pupils were equal, round, and reactive. Sclerae nonicteric. Extraocular musculature is inta ct. EARS: TMs clear. NOSE: Normal. MOUTH AND THROAT: Normal. NECK: Carotids are equal and strong. No bruits. Thyroid not enlarged. LUNGS: Clear. HEART: Regular rate. BACK: The patient has marked kyphosis. There is no point tenderness. ABDOMEN: Soft, nontender. EXTREMITIES: No edema. NEUROLOGIC: Affect is a little sad this morning. She is alert and oriented x3 with generalized wea kness, but no focal weakness. IMPRESSION: 1. Weakness and gait abnormality: A. functionally not able to manage her ADLs. Discharge to her home on 07/08/2017, but return to [facility] on 07/09/2017 due to increased weakness and inability to take care of herself. 2. Severe osteoporosis: A. History of compression fractures at T4 through T12 and L1 and L2 with recent acute exacerbation l eft her with severe pain and spasms and inability to take care of herself. B. the acute exacerbation has resolved and spasms are controlled. 3. Gastroesophageal reflux disease: A. Recent acute exacerbation and controlled. 4. Coronary heart disease: A. Status post stent in the LAD in 01/2008. B. Asymptomatic. 5. Hypertension. A. Episode of hypotension and bradycardia secondary to the combined effect of the benazepril, amlod ipine, and Inderal that required stopping bradycardia and hypotension resolved, Inderal had to be re started at a reduced dose of 20 mg b.i.d. due to severe recurrence of her intention tremors. Blood pressure and pulse had been adequate on this. B. Blood pressure gradually increasing. Anticipate will probably have to restart her benazepril, aguila d been on 20 mg b.i.d. and also amlodipine 5 mg a day. 6. Venous insufficiency of the lower extremity. 7. History of cancer of the colon: A. Status post right hemicolectomy in 1997. B. Last colonoscopy on 03/2017 showed no evidence of recurrence, and good anastomosis. C. No evidence of disease. 8. Intention tremors. 9. Recurrent deep vein thrombosis. A. Initial bilateral deep vein thromboses, it was complicated by pulmonary embolism following diaph ragmatic hernia in 2016. B. Recurrent deep vein thrombosis of the right leg in 01/2016. C. On long-term anticoagulation with Xarelto. D. Presently asymptomatic. 10. Cervical spondylosis. 11. Asthma. 12. Peripheral neuropathy of the lower extremity. PLAN: The patient has been readmitted to extended care due to the inability to manage and take care of her ADLs at home, her nausea is resolved, we will reinitiate physical therapy and effort to see if we can build her strength up further and increase in her functional capability. The patient had opted to be discharged on 07/08/2017 and thought that she could manage and encouraged her to stay lo [facility], but she felt that she could manage as she since was found out otherwise and we will now contin ue with physical therapy. Later, we will reassess her functional capability and reexamin whether or not she will be able to have adequate support in her home.
[2017-07-10] MEDS ORDERED: Rivaroxaban 10 MG TAB PO SCH (17:00)
[2017-07-11] MEDS: traMADol HCl 50 MG TAB PO PRN ×2 (04:28→21:06)
[2017-07-11 05:28] LABS: #Eosinphils 0.2 thou/uL (0.0-0.7); #Lymphocytes 1.2 thou/uL (1.20-3.40); #Monocytes 0.4 thou/uL (0.11-0.59); #Neutrophils 2.2 thou/uL (1.40-6.50); %Basophils 0.9 % (0.0-1.0); %Eosinophils 4.3 % (0.0-10.0); %Lymphocytes 29.8 % (21.0-51.0); %Neutrophils 56.1 % (42.0-75.0); Hemoglobin 11.1 g/dL (12.0-16.0); Mean Corpuscular Hemoglobin 31.6 pg (27.0-31.0); Mean Corpuscular Volume 98.7 fl (81.0-99.0); Mean Platelet Volume 7.4 fL (7.4-10.4); Platelet Count 147 thou/uL (130-400); Red Blood Cell (RBC) Count 3.51 mill/uL (4.20-5.40)
[2017-07-11] MEDS: Lidocaine Patch Removal 1 EACH TOP SCH ×2 (06:14→21:01)
--- NOTE | 2017-07-11 08:35 | PRG ---
DATE OF SERVICE: 07/11/2017. SUBJECTIVE: The patient said she feels a little better today. She is having no nausea. Her back i s a little sore, but no more than usual. OBJECTIVE: The patient is sitting up in a bedside chair. She appears comfortable. Her temp is 97. 4, pulse 83, respirations 20, O2 sat 95%. Blood pressure 114/59. Lungs are clear. Heart, regular rate. Extremities, no edema. Lab; H\T\H 11.1 and 34.6, white cell count 4000 with 56% segs, 30% lymphocytes, and platelet count 1 47,000. ASSESSMENT: 1. Weakness and gait abnormality. A. Functionally not able to manage all of her ADLs and live at her home. Was discharged on 07/08/20 17 to her home with the family's helped, but was unable to manage and developed increased weakness a nd unable to take care of herself requiring readmission on 07/09/2017. 2. Severe osteoporosis. A. History of compression fractures of T4-T12 and L1 and 2 with recent acute exacerbation that left her with severe pain and spasms and unable to take care of herself. B. Acute exacerbation has resolved and spasms are controlled. 3. Gastroesophageal reflux disease. A. Recent acute exacerbation, controlled. 4. Coronary heart disease. A. Status post stent in the LAD in 01/2008. B. Asymptomatic. 5. Hypertension. A. Controlled. 6. Venous insufficiency of the lower extremities. 7. History of cancer of the colon. A. Status post right hemicolectomy in 1997. B. Last colonoscopy 03/2017 showed no evidence of recurrence, and good anastomosis. C. No evidence of disease. 8. Intention tremors, controlled. 9. Recurrent deep vein thrombosis. A. History of bilateral deep vein thrombosis complicated by pulmonary embolism following diaphragma tic hernia in 03/2013. B. Recurrent deep venous thrombosis to right leg 01/2016. C. On long-term anticoagulation with Xarelto. D. Presently asymptomatic. 10. Cervical spondylosis. 11. Asthma. 12. Peripheral neuropathy. PLAN: Continue present care. Continue PT. Gaymar pump for moist warmth will be utilized for her b ack.
[2017-07-11] MEDS ORDERED: Ezetimibe 10 MG TAB PO SCH (09:00)
[2017-07-11] MEDS ORDERED: Non-Formulary Item 1 EACH (Rosuvastatin Calcium [Crestor] 20 MG) PO SCH (09:00)
[2017-07-11] MEDS: Ezetimibe 10 MG TAB PO SCH (09:04)
[2017-07-11] MEDS: Lidocaine 5% Patch TD SCH (09:04)
[2017-07-11] MEDS: Gabapentin 100 MG CAP PO SCH ×3 (09:05→21:00)
[2017-07-11] MEDS: Rivaroxaban 10 MG TAB PO SCH (16:51)
[2017-07-11] MEDS: tiZANidine HCl 4 MG TAB PO PRN (21:05)
[2017-07-12] MEDS: Ezetimibe 10 MG TAB PO SCH (08:51)
[2017-07-12] MEDS: Lidocaine 5% Patch TD SCH (08:52)
[2017-07-12] MEDS: Gabapentin 100 MG CAP PO SCH ×3 (08:52→21:47)
[2017-07-12] MEDS: Rivaroxaban 10 MG TAB PO SCH (17:13)
[2017-07-12] MEDS: Acetaminophen 325 MG TAB PO PRN (19:28)
[2017-07-12] MEDS: Lidocaine Patch Removal 1 EACH TOP SCH (21:09)
[2017-07-12] MEDS: Docusate 100 MG CAP PO PRN (21:46)
[2017-07-13 05:12] LABS: Hemoglobin 10.6 g/dL (12.0-16.0); Platelet Count 144 thou/uL (130-400)
[2017-07-13] MEDS: Ezetimibe 10 MG TAB PO SCH (08:30)
[2017-07-13] MEDS: Docusate 100 MG CAP PO PRN (08:30)
[2017-07-13] MEDS: Gabapentin 100 MG CAP PO SCH ×3 (08:30→20:44)
[2017-07-13] MEDS: Lidocaine 5% Patch TD SCH (08:30)
--- NOTE | 2017-07-13 08:52 | PRG ---
DATE OF SERVICE: 07/13/2017 The patient said she is feeling better. She is walking a little further, still needs a little alvin tance with her transferring. She has some mild pain in her back, but no more than usual. OBJECTIVE: The patient is up standing, holding onto her walker with physical therapist with her. S he is alert, in good spirits and appears in no distress. Temp 97.9, blood pressure 116/56, pulse 68 , respirations 20, O2 sat 95% on room air. Lungs clear. Heart, regular rate. Back, nontender. Her H\T\H are 10.6 and 32.9, platelet count 144,000. Creatinine 0.67. GFR 84. ASSESSMENT: 1. Weakness and gait abnormality. A. Improved. 2. Severe osteoporosis. A. History of compression fractures at T4-T12 and L1 and 2 with recent acute exacerbation that left her with severe pain, spasms and inability to take care of herself. B. Acute exacerbation has resolved and spasms are controlled. 3. Gastroesophageal reflux disease. A. Recent acute exacerbation, controlled. 4. Coronary heart disease. A. Status post stent in the LAD 01/2008. B. Asymptomatic. 5. Hypertension, controlled. 6. Venous insufficiency of the lower extremity. 7. History of cancer of the colon. A. Status post right hemicolectomy 1997. B. Last colonoscopy 04/09/2017 showed no evidence of recurrence and good anastomosis. C. No evidence of disease. 8. Intention tremors, controlled. 9. Recurrent deep vein thrombosis. A. History of bilateral deep vein thrombosis, complicated by pulmonary embolism following diaphragm atic hernia in 03/2013. B. Recurring deep vein thrombosis the right leg 01/2016. C. On long-term anticoagulation with Xarelto. D. Presently asymptomatic. 10. Cervical spondylosis. 11. Asthma. 12. Peripheral neuropathy, controlled. PLAN: Continue PT.
[2017-07-13] MEDS: Rivaroxaban 10 MG TAB PO SCH (17:04)
[2017-07-13] MEDS: Lidocaine Patch Removal 1 EACH TOP SCH (20:45)
[2017-07-14] MEDS: tiZANidine HCl 4 MG TAB PO PRN (00:58)
[2017-07-14] MEDS: traMADol HCl 50 MG TAB PO PRN (00:58)
[2017-07-14] MEDS: Acetaminophen 325 MG TAB PO PRN (08:08)
[2017-07-14] MEDS: Gabapentin 100 MG CAP PO SCH ×3 (08:08→20:08)
[2017-07-14] MEDS: Lidocaine 5% Patch TD SCH (08:09)
[2017-07-14] MEDS: Ezetimibe 10 MG TAB PO SCH (08:09)
[2017-07-14] MEDS: Rivaroxaban 10 MG TAB PO SCH (17:22)
[2017-07-14] MEDS: Lidocaine Patch Removal 1 EACH TOP SCH (20:08)
[2017-07-14] MEDS: Docusate 100 MG CAP PO PRN (20:10)
[2017-07-15] MEDS: traMADol HCl 50 MG TAB PO PRN ×2 (03:29→22:48)
[2017-07-15 07:15] LABS: Hemoglobin 10.8 g/dL (12.0-16.0); Platelet Count 145 thou/uL (130-400)
[2017-07-15] MEDS: Lidocaine 5% Patch TD SCH (08:22)
[2017-07-15] MEDS: Ezetimibe 10 MG TAB PO SCH (08:22)
[2017-07-15] MEDS: Gabapentin 100 MG CAP PO SCH ×3 (08:22→20:09)
--- NOTE | 2017-07-15 11:53 | PRG ---
DATE OF SERVICE: 07/15/2017 SUBJECTIVE: The patient said she is doing better. She still has some soreness intermittently in he r back, but the Gaymar pump providing moist heat and her pain medicines seem to be working fine for this. She is doing better with her physical therapy and is feeling a little more stable. OBJECTIVE: The patient is sitting up in her bedside chair. She looks very comfortable, in no distr ess. Her temperature is 96.7, pulse 59, respirations 20, O2 sat 98% on room air, blood pressure 128 /64. Lungs are clear. Heart, regular rate. Back; marked kyphotic deformity. Nontender to light p ressure. H\T\H 10.8 and 33.1, platelet count 145,000. Creatinine 0.63. GFR 90. ASSESSMENT: 1. Weakness and gait abnormality, improving. 2. Severe osteoporosis. A. History of compression fractures at T4 through T12 and L1 and L2 with recent acute exacerbation that left her with severe pain, spasms and inability to take care of herself. The acute exacerbatio n has resolved and spasms are controlled. B. Functional capabilities gradually improving. 3. Gastroesophageal reflux disease. A. Recent exacerbation, controlled. 4. Coronary heart disease. A. Status post stent in the LAD in January 2008. B. Asymptomatic. 5. Hypertension, controlled. 6. Venous insufficiency of the lower extremity. 7. History of cancer of the colon. A. Status post right hemicolectomy in 1997. B. Last colonoscopy 04/09/2017 showed no evidence of recurrence and good anastomosis. C. No evidence of disease. 8. Intention tremors, controlled. 9. Recurrent deep vein thrombosis. A. History of bilateral deep venous thromboses complicated by pulmonary embolism following diaphrag matic hernia 03/2013. B. Recurring deep venous thrombosis the right leg 01/2016. C. On long-term anticoagulation with Xarelto. D. Presently asymptomatic. 10. Cervical spondylosis, stable. 11. Asthma, presently asymptomatic. 12. Peripheral neuropathy, controlled. PLAN: Continue present care. Continue physical therapy.
[2017-07-15] MEDS: Rivaroxaban 10 MG TAB PO SCH (16:37)
[2017-07-15] MEDS: Lidocaine Patch Removal 1 EACH TOP SCH (20:10)
[2017-07-16] MEDS: Lidocaine 5% Patch TD SCH (08:26)
[2017-07-16] MEDS: Ezetimibe 10 MG TAB PO SCH (08:27)
[2017-07-16] MEDS: Gabapentin 100 MG CAP PO SCH ×3 (08:27→21:01)
[2017-07-16] MEDS: Docusate 100 MG CAP PO PRN (08:29)
[2017-07-16] MEDS: Ondansetron ODT 4 MG TAB PO PRN (11:38)
[2017-07-16] MEDS ORDERED: Polyethylene Glycol 3350 17 GM Packet PO SCH (12:00)
[2017-07-16] MEDS: Rivaroxaban 10 MG TAB PO SCH (17:06)
[2017-07-16] MEDS: Lidocaine Patch Removal 1 EACH TOP SCH (21:00)
[2017-07-17] MEDS: traMADol HCl 50 MG TAB PO PRN (01:56)
[2017-07-17] MEDS: tiZANidine HCl 4 MG TAB PO PRN (01:57)
[2017-07-17] MEDS: Acetaminophen 325 MG TAB PO PRN (06:06)
[2017-07-17] MEDS: Lidocaine 5% Patch TD SCH (08:55)
[2017-07-17] MEDS: Docusate 100 MG CAP PO PRN (08:59)
[2017-07-17] MEDS: Ezetimibe 10 MG TAB PO SCH (09:00)
[2017-07-17] MEDS: Polyethylene Glycol 3350 17 GM Packet PO SCH (09:02)
[2017-07-17] MEDS: Gabapentin 100 MG CAP PO SCH ×3 (09:02→20:52)
[2017-07-17] MEDS: Rivaroxaban 10 MG TAB PO SCH (16:48)
[2017-07-17] MEDS: Lidocaine Patch Removal 1 EACH TOP SCH (20:52)
[2017-07-18] MEDS: traMADol HCl 50 MG TAB PO PRN (03:22)
[2017-07-18] MEDS: Ezetimibe 10 MG TAB PO SCH (09:05)
[2017-07-18] MEDS: Lidocaine 5% Patch TD SCH (09:05)
[2017-07-18] MEDS: Polyethylene Glycol 3350 17 GM Packet PO SCH (09:06)
[2017-07-18] MEDS: Gabapentin 100 MG CAP PO SCH ×3 (09:06→20:07)
[2017-07-18] MEDS: Docusate 100 MG CAP PO PRN (09:06)
--- NOTE | 2017-07-18 12:37 | PRG ---
DATE OF SERVICE: 07/18/2017 SUBJECTIVE: The patient said she is feeling stronger. She is walking a little further. Her back h as been pretty good this morning. OBJECTIVE: GENERAL: The patient is sitting up in a bedside chair. Later she was up walking short distances in the hallway with her walker and standby assistance. VITAL SIGNS: Show temperature of 96.8, pulse 58, blood pressure 140/62, respirations 18, O2 sat 95% . LUNGS: Clear. HEART: Regular rate. EXTREMITIES: No edema. BACK: There is no tenderness to light palpation. She has markedly kyphosis of the lumbar spine. ASSESSMENT: 1. Weakness and gait abnormality, improving. 2. Severe osteoporosis. A. History of compression fracture of T4 through T12 and L1 and 2 with recent acute exacerbation th at left her with severe pain, spasms and inability to take care of herself. Acute exacerbation has resolved and the spasms are well controlled. B. Functional capabilities are gradually improving. 3. Gastroesophageal reflux disease. A. Recent acute exacerbation, controlled. 4. Coronary heart disease. A. Status post stent in the left anterior descending in January 2008. B. Asymptomatic. 5. Hypertension, controlled. 6. Venous insufficiency of the lower extremities. 7. History of cancer of the colon. A. Status post right hemicolectomy in 1997. B. Last colonoscopy 04/09/2017, showed no evidence of recurrence and good anastomosis. C. No evidence of disease. 8. Intention tremors, controlled. 9. Recurring deep vein thrombosis. A. History of bilateral deep vein thrombosis, complicated by pulmonary embolism following diaphragm atic hernia in 03/2013. B. Recurrent deep vein thrombosis of the right leg, 01/2016. C. Long-term anticoagulation with Xarelto. D. Presently asymptomatic. 10. Cervical spondylosis. 11. Asthma, controlled. 12. Peripheral neuropathy. The patient is doing very well. She is making gradual improvement afte r her strength is a little better. She and her family feels like they can manage with her at home, we will discharge.
[2017-07-18] MEDS: Rivaroxaban 10 MG TAB PO SCH (16:43)
[2017-07-18] MEDS: Lidocaine Patch Removal 1 EACH TOP SCH (20:09)
[2017-07-19] MEDS: traMADol HCl 50 MG TAB PO PRN (03:12)
[2017-07-19] MEDS: Ezetimibe 10 MG TAB PO SCH (08:21)
[2017-07-19] MEDS: Gabapentin 100 MG CAP PO SCH ×3 (08:21→20:41)
[2017-07-19] MEDS: Polyethylene Glycol 3350 17 GM Packet PO SCH (08:22)
[2017-07-19] MEDS: Lidocaine 5% Patch TD SCH (08:22)
[2017-07-19] MEDS: Docusate 100 MG CAP PO PRN (08:25)
[2017-07-19] MEDS: Rivaroxaban 10 MG TAB PO SCH (16:46)
[2017-07-19] MEDS: Lidocaine Patch Removal 1 EACH TOP SCH (20:41)
[2017-07-19] MEDS: Acetaminophen 325 MG TAB PO PRN (20:46)
[2017-07-20] MEDS: traMADol HCl 50 MG TAB PO PRN (00:11)
[2017-07-20] MEDS: Ezetimibe 10 MG TAB PO SCH (08:45)
[2017-07-20] MEDS: Polyethylene Glycol 3350 17 GM Packet PO SCH (08:45)
[2017-07-20] MEDS: Gabapentin 100 MG CAP PO SCH ×3 (08:46→20:19)
[2017-07-20] MEDS: Lidocaine 5% Patch TD SCH (08:47)
--- NOTE | 2017-07-20 09:14 | PRG ---
DATE OF SERVICE: 07/20/2017 SUBJECTIVE: The patient said she continues to improve. She is feeling better. Her back feels good . She is walking a little further and transferring easier. OBJECTIVE: The patient is walking in the hallway with the therapist using a walker with wheels. He r temp is 97.1, pulse 53, respirations 20, O2 saturation 97% on room air, blood pressure 147/67. He r lungs are clear. Heart, regular rate. Back; marked kyphosis. No areas of tenderness. Extremiti es; no edema. ASSESSMENT: 1. Weakness and gait abnormality, improving. 2. Severe osteoporosis. A. History of compression fracture of T4-T12 and L1 and 2 with recent acute exacerbation that left her with severe pain, spasms and inability to take care of herself. Acute exacerbation has resolved and the spasms are well controlled. B. Functional capabilities are gradually improving. 3. Gastroesophageal reflux disease. A. Recent acute exacerbation, controlled. 4. Coronary heart disease. A. Status post stent in the left anterior descending in 01/2008. B. Remains asymptomatic. 5. Hypertension, controlled. 6. Venous insufficiency of the lower extremities. 7. History of cancer of the colon. A. Status post right hemicolectomy in 1997. B. Last colonoscopy 04/09/2017 showing no evidence of recurrence and good anastomosis. C. No evidence of disease. 8. Intention tremors, controlled. 9. Recurring deep vein thrombosis. A. History of bilateral deep vein thrombosis, complicated by pulmonary embolism following diaphragm atic hernia repair 03/2013. B. Recurrent deep vein thrombosis of the right leg in 01/2016. C. Long-term anticoagulation with Xarelto. D. Presently asymptomatic. 10. Cervical spondylosis. 11. Asthma, controlled. 12. Peripheral neuropathy. PLAN: The patient is doing very well. Her strength is improving. Her gait is improving. Her abil ity to transfer is improving. We will continue her therapy, once she is a little stronger will then let her go home with the care of her family, which is what she wants to do.
[2017-07-20] MEDS: Rivaroxaban 10 MG TAB PO SCH (16:56)
[2017-07-20] MEDS: Lidocaine Patch Removal 1 EACH TOP SCH (21:03)
[2017-07-21] MEDS: Acetaminophen 325 MG TAB PO PRN (01:42)
[2017-07-21] MEDS: Polyethylene Glycol 3350 17 GM Packet PO SCH (08:12)
[2017-07-21] MEDS: Lidocaine 5% Patch TD SCH (08:12)
[2017-07-21] MEDS: Ezetimibe 10 MG TAB PO SCH (08:13)
[2017-07-21] MEDS: Gabapentin 100 MG CAP PO SCH ×3 (08:13→20:16)
[2017-07-21] MEDS: Docusate 100 MG CAP PO PRN (08:24)
[2017-07-21] MEDS ORDERED: Polyethylene Glycol 3350 17 GM Packet PO PRN (15:40)
[2017-07-21] MEDS: Rivaroxaban 10 MG TAB PO SCH (16:40)
[2017-07-21] MEDS: Docusate 100 MG CAP PO SCH (20:16)
[2017-07-21] MEDS: Lidocaine Patch Removal 1 EACH TOP SCH (20:17)
[2017-07-22] MEDS: traMADol HCl 50 MG TAB PO PRN (02:45)
[2017-07-22 05:21] LABS: Hemoglobin 11.3 g/dL (12.0-16.0); Platelet Count 174 thou/uL (130-400)
[2017-07-22] MEDS: Ezetimibe 10 MG TAB PO SCH (08:24)
[2017-07-22] MEDS: Gabapentin 100 MG CAP PO SCH ×3 (08:24→21:45)
[2017-07-22] MEDS: Docusate 100 MG CAP PO SCH ×2 (08:24→21:45)
[2017-07-22] MEDS: Lidocaine 5% Patch TD SCH (08:25)
[2017-07-22] MEDS: Rivaroxaban 10 MG TAB PO SCH (17:22)
[2017-07-22] MEDS: Lidocaine Patch Removal 1 EACH TOP SCH (21:45)
--- NOTE | 2017-07-22 23:03 | PRG ---
DATE OF SERVICE: 07/22/2017 SUBJECTIVE: The patient thinks she is doing better. The heat on her back feels good. She is walki ng a little further and transferring easier. OBJECTIVE: GENERAL: The patient is sitting up in a bedside chair. She is alert and appears very comfortable a nd in no distress. VITAL SIGNS: Temperature 97.4, pulse 68, blood pressure 144/65, respirations 18 and O2 sat 97% on r oom air. LUNGS: Clear. HEART: Regular rate. LABORATORY DATA: Hemoglobin and hematocrit 11.3 and 34.8, platelet count 174,000. Creatinine 0.63. GFR is 90. ASSESSMENT: 1. Weakness and gait abnormality improving. 2. Severe osteoporosis. A. History of compression fracture of T4 through T12 and L1 and L2 with recent acute exacerbation t pat has left her with severe pain, spasms and inability to take care of herself. Acute exacerbation has resolved and the spasms are well-controlled. B. Functional capabilities are gradually improving. 3. Gastroesophageal reflux disease. A. Recent acute exacerbation is controlled. 4. Coronary heart disease. A. Status post stent in the left LAD, 01/2008. B. Remains asymptomatic. 5. Hypertension, controlled. 6. Venous insufficiency of the lower extremities controlled. 7. History of cancer of the colon. A. Status post right hemicolectomy in 1997. B. The last colonoscopy on 04/09/2017, showed no evidence of recurrence and good anastomoses. C. No evidence of disease. 8. Intention tremors, controlled. 9. Recurring deep vein thrombosis. A. History of bilateral deep vein thrombosis, complicated by pulmonary embolism following diaphragm atic hernia repair on 04/09/2013. B. 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 C. On long-term anticoagulation with Xarelto. D. Presently asymptomatic. 10. Cervical spondylosis. 11. Asthma, controlled. PLAN: The patient is making continual improvement. I visited with her and indicated that I feel li ke we should try for at least another week of this more intensive physical therapy in an effort to t ry to improve her general functional capabilities prior to her trying to go home where she lives by herself. She is very agreeable with this.
[2017-07-23] MEDS: Lidocaine 5% Patch TD SCH (08:23)
[2017-07-23] MEDS: Ezetimibe 10 MG TAB PO SCH (08:23)
[2017-07-23] MEDS: Docusate 100 MG CAP PO SCH ×2 (08:24→21:20)
[2017-07-23] MEDS: Gabapentin 100 MG CAP PO SCH ×3 (08:24→21:20)
[2017-07-23] MEDS ORDERED: Lantiseptic Ointment 130 GM JAR TOP PRN (08:56)
[2017-07-23] MEDS: Lantiseptic Ointment 130 GM JAR TOP SCH ×2 (10:38→21:21)
[2017-07-23] MEDS: Rivaroxaban 10 MG TAB PO SCH (17:05)
[2017-07-23] MEDS: Lidocaine Patch Removal 1 EACH TOP SCH (21:22)
[2017-07-24] MEDS: traMADol HCl 50 MG TAB PO PRN (02:29)
[2017-07-24] MEDS: Gabapentin 100 MG CAP PO SCH ×3 (08:34→20:35)
[2017-07-24] MEDS: Docusate 100 MG CAP PO SCH ×2 (08:34→20:35)
[2017-07-24] MEDS: Ezetimibe 10 MG TAB PO SCH (08:34)
[2017-07-24] MEDS: Lidocaine 5% Patch TD SCH (08:35)
[2017-07-24] MEDS: Lantiseptic Ointment 130 GM JAR TOP SCH ×2 (08:35→20:38)
[2017-07-24] MEDS: Rivaroxaban 10 MG TAB PO SCH (16:30)
[2017-07-24] MEDS: Lidocaine Patch Removal 1 EACH TOP SCH (20:36)
[2017-07-25] MEDS: traMADol HCl 50 MG TAB PO PRN (01:42)
[2017-07-25] MEDS: Acetaminophen 325 MG TAB PO PRN (08:32)
[2017-07-25] MEDS: Ezetimibe 10 MG TAB PO SCH (08:33)
[2017-07-25] MEDS: tiZANidine HCl 4 MG TAB PO PRN (08:33)
[2017-07-25] MEDS: Gabapentin 100 MG CAP PO SCH ×3 (08:33→20:59)
[2017-07-25] MEDS: Docusate 100 MG CAP PO SCH ×2 (08:33→20:58)
[2017-07-25] MEDS: Lidocaine 5% Patch TD SCH (08:34)
[2017-07-25] MEDS: Lantiseptic Ointment 130 GM JAR TOP SCH ×2 (08:34→21:01)
[2017-07-25] MEDS: Ondansetron ODT 4 MG TAB PO PRN (10:03)
--- NOTE | 2017-07-25 11:28 | PRG ---
DATE OF SERVICE: 07/25/2017 SUBJECTIVE: Overall, the patient has been doing very well, able to walk a little further and transf erring easier. This morning, she was having a little spasm in her back and took a Zanaflex. Somet kenton, the patient said she very nauseated after she took this, which happens occasionally when she t akes a medication. OBJECTIVE: GENERAL: The patient presently is lying in bed. She looks a little pale and bathing her face with a cool rag. VITAL SIGNS: Show a temperature of 96.3, pulse 60, blood pressure 135/71, respirations 18, O2 sat 9 6%. LUNGS: Clear. HEART: Regular rate. EXTREMITIES: No edema. ASSESSMENT: 1. Weakness and gait abnormality. A. Improving. 2. Severe osteoporosis. A. History of compression fracture, T4 through T12, and L1 and L2 with recent acute exacerbation aguila ve left her with severe pain and spasms and inability to take care of herself. Acute exacerbation h as resolved and spasms are well controlled. B. Functional capabilities and weakness gradually improving. 3. Gastroesophageal reflux disease. A. Recent acute exacerbation, controlled. 4. Coronary heart disease. A. Status post stent in the LAD, 01/2008. B. Remains asymptomatic. 5. Hypertension, controlled. 6. Venous insufficiency of the lower extremity, controlled. 7. History of cancer of the colon. A. Status post right hemicolectomy in 1997. B. Last colonoscopy, 04/09/2017 showed no evidence of recurrence, and good anastomosis. C. No evidence of disease. 8. Intention tremors, controlled. 9. Recurring venous thrombosis. A. History of bilateral deep vein thrombosis, complicated by pulmonary embolism following diaphragm atic hernia repair, 03/2013. B. 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 C. On long-term anticoagulation with Xarelto. D. Presently asymptomatic. 10. Cervical spondylosis. 11. Asthma, controlled. 12. Nausea in the morning of 07/25/2017, secondary to the Zanaflex. PLAN: Continue present care. Encourage the patient to use the Zanaflex with food. When she use it in the future, nausea be treated symptomatically.
[2017-07-25] MEDS: Rivaroxaban 10 MG TAB PO SCH (16:59)
[2017-07-25] MEDS: Lidocaine Patch Removal 1 EACH TOP SCH (21:00)
[2017-07-26] MEDS: traMADol HCl 50 MG TAB PO PRN (03:05)
[2017-07-26] MEDS: Docusate 100 MG CAP PO SCH ×2 (09:03→20:21)
[2017-07-26] MEDS: Gabapentin 100 MG CAP PO SCH ×3 (09:05→20:21)
[2017-07-26] MEDS: Lantiseptic Ointment 130 GM JAR TOP SCH ×2 (09:05→20:22)
[2017-07-26] MEDS: Ezetimibe 10 MG TAB PO SCH (09:05)
[2017-07-26] MEDS: Lidocaine 5% Patch TD SCH (09:06)
[2017-07-26] MEDS: Rivaroxaban 10 MG TAB PO SCH (17:14)
[2017-07-26] MEDS: Lidocaine Patch Removal 1 EACH TOP SCH (20:22)
[2017-07-27] MEDS: traMADol HCl 50 MG TAB PO PRN (04:41)
[2017-07-27] MEDS: Ezetimibe 10 MG TAB PO SCH (08:37)
[2017-07-27] MEDS: Lidocaine 5% Patch TD SCH (08:37)
[2017-07-27] MEDS: Gabapentin 100 MG CAP PO SCH ×3 (08:38→20:57)
[2017-07-27] MEDS: Lantiseptic Ointment 130 GM JAR TOP SCH ×2 (08:41→20:58)
[2017-07-27] MEDS: Docusate 100 MG CAP PO SCH ×2 (08:42→20:56)
[2017-07-27] MEDS: Rivaroxaban 10 MG TAB PO SCH (17:10)
[2017-07-27] MEDS: Lidocaine Patch Removal 1 EACH TOP SCH (20:59)
[2017-07-28] MEDS: traMADol HCl 50 MG TAB PO PRN (01:01)
[2017-07-28] MEDS: Docusate 100 MG CAP PO SCH ×2 (08:20→20:24)
[2017-07-28] MEDS: Ezetimibe 10 MG TAB PO SCH (08:21)
[2017-07-28] MEDS: Lantiseptic Ointment 130 GM JAR TOP SCH ×2 (08:21→20:29)
[2017-07-28] MEDS: Gabapentin 100 MG CAP PO SCH ×3 (08:21→20:26)
[2017-07-28] MEDS: Lidocaine 5% Patch TD SCH (08:24)
[2017-07-28] MEDS: Rivaroxaban 10 MG TAB PO SCH (16:59)
[2017-07-28] MEDS: Lidocaine Patch Removal 1 EACH TOP SCH (20:27)
[2017-07-29 05:15] LABS: Hemoglobin 11.5 g/dL (12.0-16.0); Platelet Count 168 thou/uL (130-400)
[2017-07-29] MEDS: Docusate 100 MG CAP PO SCH ×2 (08:31→20:28)
[2017-07-29] MEDS: Gabapentin 100 MG CAP PO SCH ×3 (08:32→20:29)
[2017-07-29] MEDS: Lidocaine 5% Patch TD SCH (08:32)
[2017-07-29] MEDS: Ezetimibe 10 MG TAB PO SCH (08:32)
[2017-07-29] MEDS: Lantiseptic Ointment 130 GM JAR TOP SCH (08:36)
--- NOTE | 2017-07-29 10:42 | PRG ---
DATE OF SERVICE: 07/29/2017 SUBJECTIVE: The patient is feeling better. She originally had planned on going home today, but her caregivers that will be assisting her are sick with gastroenteritis. I will put her off discharge for few days and so that she will have adequate support in the home. This will give the caregivers time to recover from their stomach virus. OBJECTIVE: GENERAL APPEARANCE: The patient is sitting up in a chair, appears comfortable, in no distress. VITAL SIGNS: Temperature 96.3, pulse 62, blood pressure 147/66, respirations 20, O2 sat 98%. LUNGS: Clear. HEART: Regular rate. LABORATORY DATA: H\T\H 11.5 and 34.5 and platelet count 168,000. Her GFR is 87. ASSESSMENT: 1. Weakness and gait abnormality, continues to improve. 2. Severe osteoporosis. A. History of compression fractures of T4 through T12 and L1 and 2 with recent acute exacerbation t hat left her with severe pain, spasms and inability to take care of herself. Acute exacerbation has resolved. Spasms are controlled. B. Functional capabilities and weakness continues to improve. 3. Gastroesophageal reflux disease. A. Recent acute exacerbation, resolved. 4. Coronary artery disease. A. Status post stent in the left anterior descending artery in 01/2008. B. Remains asymptomatic. 5. Hypertension, controlled. 6. Venous insufficiency of the lower extremities, controlled. 7. History of cancer of the colon. A. Status post right hemicolectomy in 1997. B. Last colonoscopy on 04/09/2017 showed no evidence of recurrence and got anastomosis. C. No evidence of disease. 8. Intention tremors, controlled. 9. History of recurrent venous thrombosis. A. History of bilateral deep vein thrombosis, complicated by pulmonary embolism following diaphragm atic hernia repair on 03/2013. B. Recurrent deep vein thrombosis of the right leg, 01/2016. C. On long-term anticoagulant with Xarelto. D. Presently asymptomatic. 10. Cervical spondylosis. 11. Asthma. PLAN: The patient is doing very well. She is making good progress with physical therapy. Original ly, I had intended to let her go home today, but her support in the home, i.e., caregivers is sick. We will delay until these caregivers are well. Patient will certainly benefit by the added stay fo r continuation of her physical therapy.
[2017-07-29] MEDS: Rivaroxaban 10 MG TAB PO SCH (17:23)
[2017-07-29] MEDS ORDERED: Rivaroxaban 10 MG TAB ONE (17:25)
[2017-07-29] MEDS: Lidocaine Patch Removal 1 EACH TOP SCH (20:20)
[2017-07-30] MEDS: traMADol HCl 50 MG TAB PO PRN (02:09)
[2017-07-30] MEDS: Ezetimibe 10 MG TAB PO SCH (07:50)
[2017-07-30] MEDS: Acetaminophen 325 MG TAB PO PRN (07:50)
[2017-07-30] MEDS: Gabapentin 100 MG CAP PO SCH ×3 (07:51→20:01)
[2017-07-30] MEDS: Lidocaine 5% Patch TD SCH (07:52)
[2017-07-30] MEDS: Docusate 100 MG CAP PO SCH ×2 (07:52→20:01)
[2017-07-30] MEDS: Rivaroxaban 10 MG TAB PO SCH (16:59)
[2017-07-30] MEDS: Lidocaine Patch Removal 1 EACH TOP SCH (20:06)
[2017-07-31] MEDS: traMADol HCl 50 MG TAB PO PRN (03:39)
[2017-07-31] MEDS: Docusate 100 MG CAP PO SCH ×2 (08:15→21:08)
[2017-07-31] MEDS: Lidocaine 5% Patch TD SCH (08:16)
[2017-07-31] MEDS: Gabapentin 100 MG CAP PO SCH ×3 (08:16→20:16)
[2017-07-31] MEDS: Ezetimibe 10 MG TAB PO SCH (08:16)
[2017-07-31] MEDS: Rivaroxaban 10 MG TAB PO SCH (17:06)
[2017-07-31] MEDS: Lidocaine Patch Removal 1 EACH TOP SCH (20:17)
[2017-08-01] MEDS: traMADol HCl 50 MG TAB PO PRN (01:31)
[2017-08-01] MEDS: Ezetimibe 10 MG TAB PO SCH (09:19)
[2017-08-01] MEDS: Docusate 100 MG CAP PO SCH ×2 (09:20→21:11)
[2017-08-01] MEDS: Lidocaine 5% Patch TD SCH ×2 (09:20→09:21)
[2017-08-01] MEDS: Gabapentin 100 MG CAP PO SCH ×3 (09:20→21:10)
--- NOTE | 2017-08-01 09:52 | PRG ---
DATE OF SERVICE: 08/01/2017 SUBJECTIVE: The patient said she is doing better. She is walking further. She is transferring eas ier. Her back pain seems to be reasonably controlled. She is shooting to go home on 08/03/2017. T hen she will have her family should be well where they can help garbage pick up man on her care. She also is ag reeable for home health to assist her with in home therapy. OBJECTIVE: The patient is sitting up in a bedside chair. She is alert, smiling, and appears very c omfortable, has already been out this morning for walk with therapy. Her vital signs show temperatu re 97.1, pulse 65, blood pressure 134/64, respirations 16, O2 sat 97% on room air. Extremities, no edema. ASSESSMENT: 1. Weakness and gait abnormality. A. Continued improvement. 2. Severe osteoporosis. A. History of compression fractures of T4 through T12 and L1 and 2 with recent acute exacerbation t hat left her with severe pain, spasms and inability to take care of herself. Acute exacerbation has resolved. Spasms are controlled. B. Functional capabilities and weakness continues to improve. 3. Gastroesophageal reflux disease. A. Recent acute exacerbation, resolved. 4. Coronary artery disease. A. Status post stent in the left anterior descending artery in 01/2008. B. Remains asymptomatic as of 08/01/2017. 5. Hypertension, controlled. 6. Venous insufficiency of the lower extremities, controlled. 7. History of cancer of the colon. A. Status post right hemicolectomy in 1997. B. Last colonoscopy on 04/09/2017 showed no evidence of recurrence and got anastomosis. C. No evidence of disease. 8. Intention tremors, controlled. 9. History of recurrent venous thrombosis. A. History of bilateral deep vein thrombosis, complicated by pulmonary embolism following diaphragm atic hernia repair on 03/2013. B. Recurrent deep vein thrombosis of the right leg, 01/2016. C. On long-term anticoagulant with Xarelto. D. Presently asymptomatic. 10. Cervical spondylosis. 11. Asthma, asymptomatic. PLAN: The patient is doing very well. Her strength is improving. Her gait is improving. Her abil ity to transfer independently is improving. We will continue physical therapy. We will plan on dis charge on 08/03/2017.
[2017-08-01] MEDS: Rivaroxaban 10 MG TAB PO SCH (17:04)
[2017-08-01 19:54] VITALS: BMI 32.3
[2017-08-01] MEDS: Lidocaine Patch Removal 1 EACH TOP SCH (21:13)
[2017-08-02] MEDS: traMADol HCl 50 MG TAB PO PRN (03:00)
[2017-08-02 06:05] LABS: Hemoglobin 11.2 g/dL (12.0-16.0); Platelet Count 157 thou/uL (130-400)
[2017-08-02 06:11] LABS: Anion Gap 12 mmol/L (10-20); BUN (Urea Nitrogen) 12 mg/dL (9.8-20.1); Calc. Creatinine Clearance 80 mL/min (70-130); Calcium 8.6 mg/dL (7.8-10.44); Carbon Dioxide 27 mmol/L (23-31); Chloride 109 mmol/L (98-107); Estimated GFR-MDRD Greater than 90; Glucose 95 mg/dL (83-110); Potassium 3.7 mmol/L (3.5-5.1); Sodium 144 mmol/L (136-145)
[2017-08-02] MEDS: Docusate 100 MG CAP PO SCH ×2 (07:39→20:17)
[2017-08-02] MEDS: Ezetimibe 10 MG TAB PO SCH (07:39)
[2017-08-02] MEDS: Gabapentin 100 MG CAP PO SCH ×3 (07:40→20:18)
[2017-08-02] MEDS: Lidocaine 5% Patch TD SCH (10:32)
[2017-08-02] MEDS: Rivaroxaban 10 MG TAB PO SCH (18:06)
[2017-08-02] MEDS: Lidocaine Patch Removal 1 EACH TOP SCH (20:24)
[2017-08-03] MEDS: traMADol HCl 50 MG TAB PO PRN (02:03)
[2017-08-03 07:19] VITALS: BP 150/70; TEMP 98
[2017-08-03] MEDS: Docusate 100 MG CAP PO SCH (08:26)
[2017-08-03] MEDS: Ezetimibe 10 MG TAB PO SCH (08:26)
[2017-08-03] MEDS: Lidocaine 5% Patch TD SCH (08:26)
[2017-08-03] MEDS: Gabapentin 100 MG CAP PO SCH (08:27)
--- NOTE | 2017-08-03 21:48 | DIS ---
DATE OF ADMISSION: 07/09/2017 DATE OF DISCHARGE: 08/03/2017 FINAL DIAGNOSES: 1. Weakness and gait abnormality. A. Continued improvement. 2. Severe osteoporosis. A. History of compression fractures of T4 through T12 and L1 and 2 with recent acute exacerbati on that left her with severe pain, spasms and inability to take care of herself. Acute exacerbation has resolved. Spasms are controlled. B. Functional capabilities and weakness continues to improve. 3. Gastroesophageal reflux disease. A. Recent acute exacerbation, resolved. 4. Coronary artery disease. A. Status post stent in the left anterior descending artery in 01/2008. B. Remains asymptomatic as of 08/01/2017. 5. Hypertension, controlled. 6. Venous insufficiency of the lower extremities, controlled. 7. History of cancer of the colon. A. Status post right hemicolectomy in 1997. B. Last colonoscopy on 04/09/2017 showed no evidence of recurrence and got anastomosis. C. No evidence of disease. 8. Intention tremors, controlled. 9. History of recurrent venous thrombosis. A. History of bilateral deep vein thrombosis, complicated by pulmonary embolism following diaph ragmatic hernia repair on 03/2013. B. Recurrent deep vein thrombosis of the right leg, 01/2016. C. On long-term anticoagulant with Xarelto. D. Presently asymptomatic. 10. Cervical spondylosis. 11. Asthma, asymptomatic. SUMMARY: The patient is an 82-year-old white female who has a history of severe osteoporosis compli cated by multiple thoracolumbar compression fractures that extend from L4-T12 and L1 and L2 that has left her with a marked kyphotic spine and marked limitation of her activities. This has been compl icated by mild dysphagia and shortness of breath with exertion due to her chest deformity from the s evere kyphosis. She also has hypertension, TIAs, peripheral neuropathy, and severe intention tremor s. She has coronary artery disease that is stable and a distant history of cancer of the colon that has been resected and on last colonoscopy this year, no signs of recurrence. Patient lives at home where she is able to ambulate with the use of a walker and manage her ADLs. Her family looks and a ssist her. Patient had been hospitalized at [facility] until 06/23/2017 for an acute exacerbation of her back pain that left her with intractab le pain and inability to manage her ADLs or take care of herself. At the [facility], she improved . The pain was controlled and the spasms in her back controlled, but she was left extremely weak. She was admitted to [facility] to extended care for conditioning and strengthening in effort t ry to improve her general functional capabilities. She did make marked improvement and was very ins istent that she had done well enough that she can manage at home with her family's help and opted to go home on 07/08/2017. She did not want home health at that time. The patient had recommended vannesa t she stayed longer, but she was felt she would be just fine at home. Patient's situation at home d id not work out and she ended up returning to the emergency room the following day very weak, nausea gracie and uncomfortable and had not been able to take care of herself even with her family aid. Derian ledezma was readmitted to [facility] on 07/09/2017. She was placed back on her usu al medication and pain medication and had for moist heat to her back. She made very significa nt improvement working with physical therapy. Her pain was well controlled with Tylenol and occasio nal tramadol and use of the heat to the back. She worked very hard with physical therapy and was wa lking by the time of her discharge up to 700 feet with rolling walker. She was transferring indepen dently. Her pain was well managed. Patient was agreeable for home health to come out and assists h er and to arrange in-home physical therapy. Her family lives next door and are poised to assist her daily and assist her not only with ADLs if needed, but also with all her instrumental ADLs. By , her condition was such it felt like that she could be safely discharged to her home. DIET: Regular diet. ACTIVITIES: Ambulate with the use of a rolling walker. Home health with [facility] will see her an d assist her and arrange for in-home physical therapy. MEDICATIONS: Acetaminophen 325 mg 2 every 4 hours as needed, Maalox Plus 30 mL every 4 hours p.r.n. indigestion, Lotensin 20 mg b.i.d., docusate sodium 100 mg b.i.d., Zetia 10 mg daily, furosemide 40 mg daily as needed for swelling, Neurontin 100 mg t.i.d., lidocaine patch apply patch to the back a nd leave on for 12 hours, then off for 12 hours as needed, Milk of Magnesia 30 mL every day p.r.n., pantoprazole 40 mg daily, MiraLax 17 grams 8 ounces of water daily, propranolol 20 mg b.i.d., Xarelt o 20 mg daily, Crestor 20 mg daily, Zanaflex 4 mg t.i.d. p.r.n., tramadol 50 mg every 8 hours as nee ded. FOLLOW UP: Patient will be seen in followup in 2 weeks in my office. Home health with [facility] w ill see her and arrange for in-home physical therapy. CODE STATUS: FULL CODE.
== END 2017-08-03 13:00 | disposition home or self-care (01) | DRG 948 ==
LOC: MADERS 19:40 → MADMS 20:14
PROVIDERS: ADMIT Family Medicine; ATTEND Family Medicine
DX: R53.1 Weakness (principal); G62.9 Polyneuropathy, unspecified; I35.1 Nonrheumatic aortic (valve) insufficiency; M84.48XD Pathological fracture, other site, subsequent encounter for fracture with routine healing; M81.0 Age-related osteoporosis without current pathological fracture; M40.205 Unspecified kyphosis, thoracolumbar region; I25.10 Atherosclerotic heart disease of native coronary artery without angina pectoris; Z95.5 Presence of coronary angioplasty implant and graft; I10 Essential (primary) hypertension; Z86.73 Personal history of transient ischemic attack (TIA), and cerebral infarction without residual deficits; G25.2 Other specified forms of tremor; K21.9 Gastro-esophageal reflux disease without esophagitis; Z90.49 Acquired absence of other specified parts of digestive tract; Z85.038 Personal history of other malignant neoplasm of large intestine; Z86.718 Personal history of other venous thrombosis and embolism; Z96.642 Presence of left artificial hip joint; E78.00 Pure hypercholesterolemia, unspecified; J45.909 Unspecified asthma, uncomplicated; Z79.01 Long term (current) use of anticoagulants; Z88.8 Allergy status to other drugs, medicaments and biological substances; R26.9 Unspecified abnormalities of gait and mobility; D50.9 Iron deficiency anemia, unspecified
CPT/HCPCS: 36415; 71010; 80048; 80053; 81003; 81015; 82553; 82565; 83605; 84484; 85014; 85018; 85025; 85049; 87086; 96374; G8978-GP-CK; G8979-GP-CJ; J2405; Q0162

== ENCOUNTER 2017-09-26 15:51 | Emergency (ER) | payer MEDICARE ==
[2017-09-26 17:03] LABS: Bilirubin Negative (Negative); Blood, Urine Moderate (Negative); Glucose, Urine (Dipstick) Negative (Negative); Leukocyte Negative (Negative); Nitrite Negative (Negative); Protein, Urine (Dipstick) 30 mg/dL (Neg-Trace); Urobilinogen 0.2 mg/dL (0.2-1.0); pH, Urine 7.5 (5.0-9.0)
[2017-09-26] MEDS ORDERED: Ondansetron HCl/PF 4 MG/2 ML Vial ONE (17:07)
[2017-09-26] MEDS ORDERED: Metoclopramide HCl 10 MG/2 ML VIAL ONE (17:07)
[2017-09-26 17:13] LABS: #Eosinphils 0.1 thou/uL (0.0-0.7); #Monocytes 0.3 thou/uL (0.11-0.59); #Neutrophils 5.4 thou/uL (1.40-6.50); %Basophils 0.4 % (0.0-1.0); %Eosinophils 0.9 % (0.0-10.0); %Lymphocytes 15.1 % (21.0-51.0); %Monocytes 4.1 % (0.0-10.0); %Neutrophils 79.5 % (42.0-75.0); Hemoglobin 13.2 g/dL (12.0-16.0); Mean Corpuscular HGB CONC 32.1 g/dL (32.0-36.0); Mean Corpuscular Volume 99.5 fl (81.0-99.0); Platelet Count 170 thou/uL (130-400); RBC Distribution Width 12.4 % (11.5-14.5); Red Blood Cell (RBC) Count 4.13 mill/uL (4.20-5.40); White Blood Cell (WBC) Count 6.8 thou/uL (4.8-10.8)
[2017-09-26 17:15] LABS: Clarity Hazy (Clear)
[2017-09-26 17:16] LABS: Bacteria/HPF Rare-Few HPF (None Seen); WBC/HPF 0-3 HPF (0-3)
[2017-09-26 17:18] LABS: ALT (SGPT) 8 U/L (8-55); AST (SGOT) 21 U/L (5-34); Albumin 3.6 g/dL (3.4-4.8); Alkaline Phosphatase 88 U/L (40-150); Anion Gap 15 mmol/L (10-20); BUN (Urea Nitrogen) 14 mg/dL (9.8-20.1); Bilirubin, Total 0.6 mg/dL (0.2-1.2); CK (CPK) 46 U/L (29-168); Calc. Creatinine Clearance 0 mL/min (70-130); Calcium 8.9 mg/dL (7.8-10.44); Carbon Dioxide 26 mmol/L (23-31); Chloride 108 mmol/L (98-107); Estimated GFR-MDRD 81; Globulin 2.6 g/dL (2.4-3.5); Glucose 118 mg/dL (83-110); Potassium 3.7 mmol/L (3.5-5.1); Protein, Total 6.2 g/dL (6.0-8.3); Sodium 145 mmol/L (136-145)
[2017-09-26 17:19] LABS: CKMB 1.1 ng/mL (0-6.6); Troponin I Less than 0.010 ng/mL (< 0.028)
--- NOTE | 2017-09-26 17:29 | RAD ---
FRONTAL VIEW CHEST: Date: 09/26/17 COMPARISON: 07/09/17. INDICATION: Nausea and vomiting. FINDINGS: There is prominent air density of the left upper abdomen, which may be related to distended gastric lumen with associated elevation of left hemidiaphragm. There is mild streaky density of the left tsering g base indicating volume loss. Mild prominence of the cardiac silhouette and pulmonary vasculature i ndicative of CHF. Mild blunting of the costophrenic sulci may be on the basis of pleural thickening and/or minimal pleural fluid. IMPRESSION: 1. No lobar consolidation. 2. CHF with mild associated edema. POS: [facility]
[2017-09-26] MEDS ORDERED: traMADol HCl 50 MG TAB ONE (18:07)
== END 2017-09-26 18:15 | disposition home or self-care (01) ==
LOC: MADERS 15:51
DX: R11.2 Nausea with vomiting, unspecified (principal); I11.0 Hypertensive heart disease with heart failure; I50.9 Heart failure, unspecified; R31.9 Hematuria, unspecified; Z79.899 Other long term (current) drug therapy
CPT/HCPCS: 36415; 71010; 80053; 81001; 82550; 82553; 83605; 83880; 84484; 85025; 87086; 93005; 96374; 96375; J2405; J2765

== ENCOUNTER 2017-11-22 09:23 | Outpatient (CLI) | payer MEDICARE ==
[2017-11-22 10:01] LABS: Anion Gap 18 mmol/L (10-20); BUN (Urea Nitrogen) 12 mg/dL (9.8-20.1); Calc. Creatinine Clearance 0 mL/min (70-130); Calcium 8.9 mg/dL (7.8-10.44); Carbon Dioxide 22 mmol/L (23-31); Chloride 108 mmol/L (98-107); Estimated GFR-MDRD 80; Glucose 100 mg/dL (83-110); Potassium 3.7 mmol/L (3.5-5.1); Sodium 144 mmol/L (136-145)
[2017-11-22 10:08] LABS: #Eosinphils 0.1 thou/uL (0.0-0.7); #Lymphocytes 1.3 thou/uL (1.20-3.40); #Monocytes 0.4 thou/uL (0.11-0.59); #Neutrophils 2.4 thou/uL (1.40-6.50); %Eosinophils 1.8 % (0.0-10.0); %Lymphocytes 31.2 % (21.0-51.0); %Monocytes 8.3 % (0.0-10.0); %Neutrophils 57.7 % (42.0-75.0); Hemoglobin 13.1 g/dL (12.0-16.0); Mean Corpuscular HGB CONC 32.8 g/dL (32.0-36.0); Mean Corpuscular Hemoglobin 32.3 pg (27.0-31.0); Mean Corpuscular Volume 98.4 fl (81.0-99.0); Mean Platelet Volume 7.1 fL (7.4-10.4); Platelet Count 188 thou/uL (130-400); RBC Distribution Width 12.3 % (11.5-14.5); Red Blood Cell (RBC) Count 4.05 mill/uL (4.20-5.40); White Blood Cell (WBC) Count 4.2 thou/uL (4.8-10.8)
== END 2017-11-22 09:24 | disposition home or self-care (01) ==
LOC: MADLABBHPM 09:23
PROVIDERS: ATTEND Family Medicine
DX: I10 Essential (primary) hypertension (principal)
CPT/HCPCS: 36415; 80048; 85025

== ENCOUNTER 2017-12-02 13:54 | Inpatient (IN) | payer MEDICARE ==
[2017-12-02] MEDS ORDERED: traMADol HCl 50 MG TAB PO PRN (16:25)
[2017-12-02] MEDS ORDERED: Acetaminophen 325 MG TAB PO PRN (16:25)
[2017-12-02] MEDS ORDERED: Ondansetron ODT 4 MG TAB PO PRN (16:25)
[2017-12-02] MEDS ORDERED: Furosemide 40 MG TAB PO PRN (16:25)
[2017-12-02] MEDS: Rivaroxaban 10 MG TAB PO SCH (18:25)
[2017-12-02] MEDS: Lidocaine Patch Removal 1 EACH TOP SCH (20:08)
[2017-12-02] MEDS: Gabapentin 100 MG CAP PO SCH (20:08)
[2017-12-02] MEDS: Propranolol 10 MG TAB PO SCH (20:08)
--- NOTE | 2017-12-02 23:24 | HP ---
DATE OF ADMISSION: Admitted to [facility] to extended care on 12/02/2017. CHIEF COMPLAINT: Weakness following hospitalization for pneumoperitoneum following endoscopic dilati on at the GE junction. HISTORY OF PRESENT ILLNESS: The patient is an 82-year-old white female who has a history of recurren t DVT and pulmonary embolism for which she is on Xarelto, coronary artery disease for which she had a stent in 2007, TIAs, severe osteoporosis with multiple thoracolumbar compression fractures leaving er with severe kyphosis, aortic regurgitation, hypertension, and cancer of the colon with right hemic olectomy in 1997 with no signs of recurrence on last EGD in 03/2017, who lives alone with her family assisting and is ambulatory prior to these recent hospitalizations with walker, and requires the help with all her instrumental ADLs. She also has a history of a Shaggy fundoplication years ago. The p atient had developed progressive dysphagia over the last year and underwent a modified barium swallow showing that she had some problems with oropharyngeal dysphagia and reflux with possible obstruction in the esophagus. She underwent EGD showing some narrowing of the distal esophagus. She underwent Bougie and balloon dilation of the distal esophageal stricture at the GE junction on 11/25/2017 by [facility] computer consultant, Dr. Barger. Immediately postop, she developed severe upper abdominal pain a nd a CT showed evidence of pneumoperitoneum. Barium swallow was done and no barium leakage was seen. The patient was air transported to [facility] to the Thoracic Surgery department under the care of Dr. Santos. She remained there from 11/25/2017 until 12/02/2017. She was evaluated there with x-rays and CT scan showing moderate pneumoperitoneum. Barium studies did not show any contrast leakage. The patient was thought to have a microperforation of the GE junction after the endoscopic dilation. She was, fortunately, able to be managed conservatively initially with being held n.p.o. and as she improved, she was able to be started on clear liquids and then advanced to full liquid t and has tolerated this well. She has done very well and she said she is swallowing better than she was prior to the EGD. She was left extremely weak. She was discharged on 12/02/2017 and brought by her family to [facility] and admitted to the alf facility for physical therapy for severe weakness and deconditioning. The patient said she is feeling a lot better and she is tolerat ing the clear liquids very well. The patient said she is just weak. The patient is due to stay on a full liquid diet. The patient is due to be seen in follow up at [place] on 12/16/[address] Bishnu Santos. The patient was examined soon after her admission along with family members an d she was able to give me a history of what has happened. She said she is feeling better. PAST HISTORY: Hospitalized at [facility] in [place] from 11/25/2017 until 12/02/2017 for pn eumoperitoneum from a microperforation after endoscopic dilation at the GE junction that was able to be managed conservatively without any surgical intervention. There was no contrast extravasation. E GD on 11/25/[address] Barger with narrowing of the distal esophagus at the GE junction, for whic h she underwent Bougie and dilation and had pneumoperitoneum afterwards necessitating transfer to [facility] [place], hospitalized at [facility] from 07/09/2017-08/03/2017 for weakness and gai t abnormality, hospitalized at [facility] from 03/23/2017 until 07/08/2017 for weakness, gait a bnormality for acute exacerbation of her chronic back pain and weakness. She has a history of severe osteoporosis complicated by compression fractures of T4 through T12 and L1 and L2. 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 The last colonoscopy in 03/2017 showed no evidence of recurrence and at the anastomos is, no evidence of disease. Diaphragmatic hernia repair, kyphoplasty 02/07/2013 for compression frac ture, fracture of the left hip requiring bipolar arthroplasty 02/2016, appendectomy, hemorrhoidectomy , tonsillectomy. She also has peripheral neuropathy of the lower extremities, [id number] aor tic regurgitation, hypercholesterolemia, intention tremors, cervical spondylosis, and asthma. PRESENT MEDICATIONS: Acetaminophen 650 mg 2 every 8 hours as needed, Zetia 10 mg daily, furosemide 4 0 mg b.i.d. as needed, gabapentin 100 mg t.i.d., lidocaine patch apply to the back for 12 hours and o ff for 12 hours, losartan 100 mg daily, ondansetron 4 mg oral disintegrating tablets every 8 hours p. r.n. nausea, pantoprazole 40 mg daily, propranolol 20 mg b.i.d., Xarelto 15 mg daily, Crestor 20 mg d aily, Tizanidine 4 mg t.i.d. as needed, Tramadol 50 mg 1-2 b.i.d. as needed. ALLERGIES: ALENDRONATE, FLEXERIL, DEXTROMETHORPHAN, NAPROXEN, THORAZINE, YELLOW DYE, SKELAXIN, MORPH INE causes nausea. DIET: Full liquid diet. REVIEW OF SYSTEMS: The patient said she thinks she has lost a little weight since all this has happe ag. She has not had any fever. Head and Neck: The patient said she has noticed over the last emmanuel ral weeks a sudden marked decline in her hearing, particularly in the left ear, but the right is bad also. She denies any pain in the ear. Pulmonary: No complaints. Cardiovascular: No chest pain. Gastrointestinal: No nausea, vomiting. Her bowels are working. No abdominal pain. Genitourinary: No complaints more so ADLs ordinarily. The patient is able to sit up in a chair, ambulate with the use of a walker, dress herself, usually bathe or shower with standby assistance. HABITS: Alcohol none. Tobacco none. SOCIAL HISTORY: The patient is a . She lives alone, but her son and [id number] live next door and they are there to assist her as needed and assist with all her ADLs. The patient does not d rive. CODE STATUS: FULL CODE. PHYSICAL EXAMINATION: GENERAL: Shows a very pleasant 82-year-old white female who is lying in bed with the head elevated. She is leaning forward due to the marked kyphotic deformity of her spine. She appears comfortable. She is very hard of hearing. VITAL SIGNS: Shows a temperature of 97, pulse 61, respirations 20, O2 saturation 94%, blood pressure 176/74. Her weight is 137. HEAD: Normocephalic and atraumatic. EYES: Pupils are equal, round, and reactive. EARS: TMs are little dull maybe a little retracted. There is no cerumen impaction. No redness. NOSE: Normal. MOUTH AND THROAT: Normal. NECK: Carotids are equal and strong. Thyroid not enlarged. LUNGS: Clear. HEART: Regular rate. No murmurs. BACK: The patient has had marked kyphotic deformity of the thoracic spine. ABDOMEN: Soft with no organomegaly, nor areas of tenderness. EXTREMITIES: No edema. NEUROLOGIC: The patient is alert and oriented to time, place, person, and situation. She has genera lized weakness, but no focal weakness. IMPRESSION: 1. Weakness and severe deconditioning. A. Leaving her unable to manage her ADLs. B. Secondary to her recent hospitalization at [facility] from 11/25/2017 until 2017. 2. Hospitalized at [facility] from 11/25/2017-12/02/2017. A. Gastroesophageal junction microperforation after endoscopic dilation complicated by moderate pneu moperitoneum without contrast extravasation that was managed conservatively with no operative interve ntion. 3. Gastroesophageal junction microperforation after endoscopic dilation of a stricture of the GE yolette ction following EGD and Bougie and dilation on 11/25/2017. A. No evidence of contrast extravasation on initial evaluation. B. Managed conservatively with no operative intervention. C. Presently tolerating full liquid diet. 4. Gastroesophageal reflux disease A. Complicated by distal esophageal stricture. B. Status post multiple distal esophageal dilation. C. History of Shaggy fundoplication 2012. D. Last EGD on 11/25/2017 showed distal esophageal narrowing at the gastroesophageal junction for wh ich she underwent Bougie and dilation that was complicated by microperforation. 5. Severe osteoporosis. A. History of compression fractures of T4 through T12 and L1 and 2. B. Complicated by severe kyphosis of the spine. 6. Coronary artery disease. A. Status post stent in the left anterior descending artery, 01/2008. B. Presently asymptomatic. 7. Hypertension. 8. History of cancer of the colon. A. Status post right hemicolectomy 1997. B. Last colonoscopy 04/09/2017 showed no evidence of recurrence and normal anastomosis. C. No evidence of disease. 9. History of recurrent venous thrombosis and pulmonary embolism. A. History of bilateral deep vein thrombosis, complicated by pulmonary embolism following diaphragma tic hernia repair in 03/2013. B. Recurrent deep vein thrombosis of the right leg in 01/2016. C. Long-term anticoagulation with Xarelto. D. Presently asymptomatic. 10. Cervical spondylosis. 11. Asthma. A. Asymptomatic. 12. Hearing impairment. 13. Venous insufficiency of the lower extremities. PLAN: The patient had been admitted to [facility]. Due to her severe deconditioning, efforts be made to try to improve her general functional capability such that she can return home where she will be assisted by her family. We will continue our anticoagulation with Xarelto. Presently, the patient is on a full liquid diet which will be con tinued. The patient is to be seen in follow up by Thoracic Surgery team in [place] on 12/16/2017, hav e physical therapy and occupational therapy consult, the patient began working with her. Also, shira rey to see her and consult with her. We will continue her on the full liquid diet and her routine m edications. Later, will need to see ENT and Audiology for the hearing impairment.
[2017-12-03 07:30] LABS: #Eosinphils 0.2 thou/uL (0.0-0.7); #Lymphocytes 1.5 thou/uL (1.20-3.40); #Monocytes 0.4 thou/uL (0.11-0.59); #Neutrophils 2.4 thou/uL (1.40-6.50); %Basophils 1.1 % (0.0-1.0); %Eosinophils 3.9 % (0.0-10.0); %Monocytes 8.1 % (0.0-10.0); %Neutrophils 53.9 % (42.0-75.0); Hemoglobin 12.8 g/dL (12.0-16.0); Mean Corpuscular HGB CONC 31.7 g/dL (32.0-36.0); Mean Corpuscular Hemoglobin 31.8 pg (27.0-31.0); Mean Corpuscular Volume 100.1 fl (81.0-99.0); Mean Platelet Volume 7.9 fL (7.4-10.4); Platelet Count 173 thou/uL (130-400); RBC Distribution Width 12.6 % (11.5-14.5); Red Blood Cell (RBC) Count 4.03 mill/uL (4.20-5.40); White Blood Cell (WBC) Count 4.4 thou/uL (4.8-10.8)
[2017-12-03 07:41] LABS: ALT (SGPT) 9 U/L (8-55); AST (SGOT) 14 U/L (5-34); Alkaline Phosphatase 71 U/L (40-150); Anion Gap 11 mmol/L (10-20); BUN (Urea Nitrogen) 15 mg/dL (9.8-20.1); Bilirubin, Total 0.6 mg/dL (0.2-1.2); Calc. Creatinine Clearance 53 mL/min (70-130); Carbon Dioxide 32 mmol/L (23-31); Chloride 101 mmol/L (98-107); Estimated GFR-MDRD 68; Globulin 2.3 g/dL (2.4-3.5); Glucose 101 mg/dL (83-110); Potassium 4.3 mmol/L (3.5-5.1); Protein, Total 5.3 g/dL (6.0-8.3); Sodium 140 mmol/L (136-145)
[2017-12-03] MEDS: Rosuvastatin 10 MG TAB PO SCH (09:11)
[2017-12-03] MEDS: Propranolol 10 MG TAB PO SCH ×2 (09:11→21:01)
[2017-12-03] MEDS: Lidocaine 5% Patch TD SCH (09:11)
[2017-12-03] MEDS: Ezetimibe 10 MG TAB PO SCH (09:11)
[2017-12-03] MEDS: Gabapentin 100 MG CAP PO SCH ×3 (09:11→21:01)
[2017-12-03] MEDS: Losartan 25 MG TAB PO SCH (09:11)
[2017-12-03] MEDS: Rivaroxaban 10 MG TAB PO SCH (17:19)
--- NOTE | 2017-12-03 19:52 | PRG ---
DATE OF SERVICE: 12/03/2017 SUBJECTIVE: The patient said she had a good night. She is handling full liquid diet well. Overall, she is doing better. OBJECTIVE: GENERAL: The patient is sitting up in bed. She is alert and appears very comfortable and in no dist ress. VITAL SIGNS: Her temp 97.7, pulse 54, respirations 18, O2 sat 95% on room air, blood pressure 144/66 . LUNGS: Clear. HEART: Regular rate. EXTREMITIES: No edema. LABORATORY DATA: Her lab shows an H&H of 12.8 and 40.8, white cell count 4400 with 54% segs, 33% lym phocytes, platelet count 173,000. Sodium 140, potassium 4.3, BUN 15, creatinine 0.81, EGFR 68, gluco se 101, albumin 3. ASSESSMENT: 1. Weakness and severe deconditioning. A. Leaving her unable to manage her ADLs. B. Secondary to her recent hospitalization at [facility] in [place] from 11/25/2017 until . C. Mild improvement as of 12/03/2017. 2. Hospitalized at [facility] in [place] from 11/25/2017-12/02/2017. A. Gastroesophageal junction microperforation after endoscopic dilation complicated by moderate pneumoperitoneum without contrast extravasation that was managed conservatively with no opera tive intervention. 3. Gastroesophageal junction microperforation after endoscopic dilation of a stricture of the GE yolette ction following EGD and Bougie and dilation on 11/25/2017. A. No evidence of contrast extravasation on initial evaluation. B. Managed conservatively with no operative intervention. C. Continues to tolerate a full liquid diet as of 12/03/2017. 4. Gastroesophageal reflux disease A. Complicated by distal esophageal stricture. B. Status post multiple distal esophageal dilation. C. History of Shaggy fundoplication 2012. D. Last EGD on 11/25/2017 showed distal esophageal narrowing at the gastroesophageal junction fo r which she underwent Bougie and dilation that was complicated by microperforation. 5. Severe osteoporosis. A. History of compression fractures of T4 through T12 and L1 and 2. B. Complicated by severe kyphosis of the spine. 6. Coronary artery disease. A. Status post stent in the left anterior descending artery, 01/2008. B. Presently asymptomatic. 7. Hypertension. 8. History of cancer of the colon. A. Status post right hemicolectomy 1997. B. Last colonoscopy 04/09/2017 showed no evidence of recurrence and normal anastomosis. C. No evidence of disease. 9. History of recurrent venous thrombosis and pulmonary embolism. A. History of bilateral deep vein thrombosis, complicated by pulmonary embolism following diaphr agmatic hernia repair in 03/2013. B. Recurrent deep vein thrombosis of the right leg in 01/2016. C. Long-term anticoagulation with Xarelto. D. Presently asymptomatic. 10. Cervical spondylosis. 11. Asthma. A. Asymptomatic. 12. Hearing impairment. 13. Venous insufficiency of the lower extremities. PLAN: Continue present care. The patient said that she needs a stool softener. We will place her o n MiraLax. Continue PT.
[2017-12-03] MEDS: Lidocaine Patch Removal 1 EACH TOP SCH (21:02)
[2017-12-04] MEDS: Rosuvastatin 10 MG TAB PO SCH (08:42)
[2017-12-04] MEDS: Losartan 25 MG TAB PO SCH (08:42)
[2017-12-04] MEDS: Gabapentin 100 MG CAP PO SCH ×3 (08:42→20:09)
[2017-12-04] MEDS: Polyethylene Glycol 3350 17 GM Packet PO SCH (08:43)
[2017-12-04] MEDS: Lidocaine 5% Patch TD SCH (08:43)
[2017-12-04] MEDS: Ezetimibe 10 MG TAB PO SCH (08:43)
[2017-12-04] MEDS: Propranolol 10 MG TAB PO SCH ×2 (08:46→20:09)
--- NOTE | 2017-12-04 15:33 | PRG ---
DATE OF SERVICE: 12/04/2017 SUBJECTIVE: The patient states she is doing alright. She is not hurting this morning. She said she still has trouble with a swallowing, but is tolerating the full liquid diet that includes oatmeal so ups. OBJECTIVE: GENERAL: The patient is sitting up in a bedside chair. She looks very comfortable and in no distres s. VITAL SIGNS: Her temperature is 97.3, pulse 57, respirations 18, O2 sat 99% on room air, and blood p ressure 123/59. LUNGS: Clear. HEART: Regular rate. ASSESSMENT: 1. Weakness and severe deconditioning. A. Leaving her unable to manage her ADLs. B. Secondary to her recent hospitalization at [facility] from 11/25/2017 until . C. Continued improvement as of 12/04/2017. 2. Hospitalized at [facility] in [place] from 11/25/2017-12/02/2017. A. Gastroesophageal junction microperforation after endoscopic dilation complicated by moderate pneumoperitoneum without contrast extravasation that was managed conservatively with no opera tive intervention. 3. Gastroesophageal junction microperforation after endoscopic dilation of a stricture of the GE yolette ction following EGD and Bougie and dilation on 11/25/2017. A. No evidence of contrast extravasation on initial evaluation. B. Managed conservatively with no operative intervention. C. Continues to tolerate a full liquid diet as of 12/04/2017. 4. Gastroesophageal reflux disease A. Complicated by distal esophageal stricture. B. Status post multiple distal esophageal dilation. C. History of Shaggy fundoplication 2012. D. Last EGD on 11/25/2017 showed distal esophageal narrowing at the gastroesophageal junction fo r which she underwent Bougie and dilation that was complicated by microperforation. 5. Severe osteoporosis. A. History of compression fractures of T4 through T12 and L1 and 2. B. Complicated by severe kyphosis of the spine. 6. Coronary artery disease. A. Status post stent in the left anterior descending artery, 01/2008. B. Presently asymptomatic. 7. Hypertension. 8. History of cancer of the colon. A. Status post right hemicolectomy 1997. B. Last colonoscopy 04/09/2017 showed no evidence of recurrence and normal anastomosis. C. No evidence of disease. 9. History of recurrent venous thrombosis and pulmonary embolism. A. History of bilateral deep vein thrombosis, complicated by pulmonary embolism following diaphr agmatic hernia repair in 03/2013. B. Recurrent deep vein thrombosis of the right leg in 01/2016. C. Long-term anticoagulation with Xarelto. D. Presently asymptomatic. 10. Cervical spondylosis. 11. Asthma. A. Asymptomatic. 12. Hearing impairment. 13. Venous insufficiency of the lower extremities. PLAN: Continue present care. We will place patient on Ensure Enlive twice today and continue physic al therapy.
[2017-12-04] MEDS: Rivaroxaban 10 MG TAB PO SCH (17:05)
[2017-12-04] MEDS: Lidocaine Patch Removal 1 EACH TOP SCH (20:09)
[2017-12-05] MEDS ORDERED: Furosemide 40 MG TAB PO PRN (09:00)
[2017-12-05] MEDS: Ezetimibe 10 MG TAB PO SCH (09:25)
[2017-12-05] MEDS: Losartan 25 MG TAB PO SCH (09:26)
[2017-12-05] MEDS: Lidocaine 5% Patch TD SCH (09:26)
[2017-12-05] MEDS: Gabapentin 100 MG CAP PO SCH ×3 (09:26→20:43)
[2017-12-05] MEDS: Rosuvastatin 10 MG TAB PO SCH (09:27)
[2017-12-05] MEDS: Propranolol 10 MG TAB PO SCH ×2 (09:27→20:42)
[2017-12-05] MEDS: Polyethylene Glycol 3350 17 GM Packet PO SCH (09:27)
[2017-12-05] MEDS: Rivaroxaban 10 MG TAB PO SCH (17:04)
[2017-12-05] MEDS ORDERED: Bisacodyl 10 MG SUPP PR PRN (17:06)
[2017-12-05] MEDS: Lidocaine Patch Removal 1 EACH TOP SCH (20:08)
[2017-12-06 07:10] LABS: Platelet Count 164 thou/uL (130-400)
[2017-12-06] MEDS: Polyethylene Glycol 3350 17 GM Packet PO SCH (08:48)
[2017-12-06] MEDS: Ezetimibe 10 MG TAB PO SCH (08:49)
[2017-12-06] MEDS: Lidocaine 5% Patch TD SCH (08:49)
[2017-12-06] MEDS: Gabapentin 100 MG CAP PO SCH ×3 (08:49→20:22)
[2017-12-06] MEDS: Propranolol 10 MG TAB PO SCH ×2 (08:49→20:24)
[2017-12-06] MEDS: Rosuvastatin 10 MG TAB PO SCH (08:49)
[2017-12-06] MEDS: Losartan 25 MG TAB PO SCH (08:50)
--- NOTE | 2017-12-06 13:09 | PRG ---
DATE OF SERVICE: 12/06/2017 SUBJECTIVE: The patient said she is feeling pretty good this morning. She is doing well with her fu ll liquid diet and the supplements. She is scheduled to return to see the thoracic surgeon in [place] at [facility] on 12/16/2017 and will have imaging studies prior to that visit. OBJECTIVE: The patient is sitting up in a bedside chair. She is alert and appears comfortable. Tem p 97.4, pulse 57, respirations 18, O2 saturation 98% on room air, blood pressure 137/59. Lungs are c lear. Heart, regular rate. Extremities, no edema. H&H 12 and 38.5, platelet count 164. GFR 78. ASSESSMENT: 1. Weakness and severe deconditioning. A. Leaving her unable to manage her ADLs. B. Secondary to her recent hospitalization at [facility] in [place] from 11/25/2017 until . C. Continued improvement as of 12/06/2017. 2. Hospitalized at [facility] in [place] from 11/25/2017-12/02/2017. A. Gastroesophageal junction microperforation after endoscopic dilation complicated by moderate pneumoperitoneum without contrast extravasation that was managed conservatively with no opera tive intervention. 3. Gastroesophageal junction microperforation after endoscopic dilation of a stricture of the GE yolette ction following EGD and Bougie and dilation on 11/25/2017. A. No evidence of contrast extravasation on initial evaluation. B. Managed conservatively with no operative intervention. C. Continues to tolerate a full liquid diet as of 12/06/2017. 4. Gastroesophageal reflux disease A. Complicated by distal esophageal stricture. B. Status post multiple distal esophageal dilation. C. History of Shaggy fundoplication 2012. D. Last EGD on 11/25/2017 showed distal esophageal narrowing at the gastroesophageal junction fo r which she underwent Bougie and dilation that was complicated by microperforation. 5. Severe osteoporosis. A. History of compression fractures of T4 through T12 and L1 and 2. B. Complicated by severe kyphosis of the spine. 6. Coronary artery disease. A. Status post stent in the left anterior descending artery, 01/2008. B. Presently asymptomatic. 7. Hypertension. 8. History of cancer of the colon. A. Status post right hemicolectomy 1997. B. Last colonoscopy 04/09/2017 showed no evidence of recurrence and normal anastomosis. C. No evidence of disease. 9. History of recurrent venous thrombosis and pulmonary embolism. A. History of bilateral deep vein thrombosis, complicated by pulmonary embolism following diaphr agmatic hernia repair in 03/2013. B. Recurrent deep vein thrombosis of the right leg in 01/2016. C. Long-term anticoagulation with Xarelto. D. Presently asymptomatic. 10. Cervical spondylosis. 11. Asthma. A. Asymptomatic. 12. Hearing impairment. 13. Venous insufficiency of the lower extremities. PLAN: The patient is doing better. Will continue physical therapy. She will see her thoracic surge on in followup in [place] in [place] on 12/16/2017.
[2017-12-06] MEDS: Rivaroxaban 10 MG TAB PO SCH (17:03)
[2017-12-06] MEDS: Lidocaine Patch Removal 1 EACH TOP SCH (20:23)
[2017-12-07] MEDS: Losartan 25 MG TAB PO SCH (08:43)
[2017-12-07] MEDS: Ezetimibe 10 MG TAB PO SCH (08:44)
[2017-12-07] MEDS: Propranolol 10 MG TAB PO SCH ×2 (08:44→21:06)
[2017-12-07] MEDS: Rosuvastatin 10 MG TAB PO SCH (08:44)
[2017-12-07] MEDS: Lidocaine 5% Patch TD SCH (08:44)
[2017-12-07] MEDS: Gabapentin 100 MG CAP PO SCH ×3 (08:44→21:06)
[2017-12-07] MEDS: Polyethylene Glycol 3350 17 GM Packet PO SCH (08:47)
[2017-12-07] MEDS: Rivaroxaban 10 MG TAB PO SCH (17:12)
[2017-12-07] MEDS: traMADol HCl 50 MG TAB PO PRN (18:11)
[2017-12-07] MEDS: tiZANidine HCl 4 MG TAB PO PRN (18:14)
[2017-12-07] MEDS ORDERED: Lantiseptic Ointment 130 GM JAR TOP PRN (18:47)
[2017-12-07] MEDS: Lantiseptic Ointment 130 GM JAR TOP SCH (21:06)
[2017-12-07] MEDS: Lidocaine Patch Removal 1 EACH TOP SCH (21:07)
[2017-12-08] MEDS: traMADol HCl 50 MG TAB PO PRN (01:46)
[2017-12-08 05:08] LABS: Hemoglobin 10.8 g/dL (12.0-16.0); Platelet Count 143 thou/uL (130-400)
[2017-12-08] MEDS: Polyethylene Glycol 3350 17 GM Packet PO SCH (08:34)
[2017-12-08] MEDS: Gabapentin 100 MG CAP PO SCH ×3 (08:35→19:29)
[2017-12-08] MEDS: Rosuvastatin 10 MG TAB PO SCH (08:35)
[2017-12-08] MEDS: Ezetimibe 10 MG TAB PO SCH (08:35)
[2017-12-08] MEDS: Losartan 25 MG TAB PO SCH (08:35)
[2017-12-08] MEDS: Lidocaine 5% Patch TD SCH (08:35)
[2017-12-08] MEDS: Propranolol 10 MG TAB PO SCH ×2 (08:36→19:28)
[2017-12-08] MEDS: Lantiseptic Ointment 130 GM JAR TOP SCH ×2 (08:36→19:29)
--- NOTE | 2017-12-08 10:57 | PRG ---
DATE OF SERVICE: 12/08/2017 SUBJECTIVE: The patient thinks she is doing better. She is walking further. She is swallowing well . OBJECTIVE: The patient is sitting up in a bedside chair. She is alert, appears in no distress. Tem p 96.7, pulse 47, respirations 16, O2 sat 96% on room air, blood pressure 111/53. Lungs are clear. Heart, slow regular rhythm. Extremities, no edema. H&H 10.8 and 33.9, platelet count 143. GFR 60. ASSESSMENT: 1. Weakness and severe deconditioning. A. Leaving her unable to manage her ADLs. B. Secondary to her recent hospitalization at [facility] in [place] from 11/25/2017 until . C. Continued improvement as of 12/08/2017. 2. Hospitalized at [facility] in [place] from 11/25/2017-12/02/2017. A. Gastroesophageal junction microperforation after endoscopic dilation complicated by moderate pneumoperitoneum without contrast extravasation that was managed conservatively with no opera tive intervention. 3. Gastroesophageal junction microperforation after endoscopic dilation of a stricture of the GE yolette ction following EGD and Bougie and dilation on 11/25/2017. A. No evidence of contrast extravasation on initial evaluation. B. Managed conservatively with no operative intervention. C. Continues to tolerate a full liquid diet as of 12/08/2017. 4. Gastroesophageal reflux disease A. Complicated by distal esophageal stricture. B. Status post multiple distal esophageal dilation. C. History of Shaggy fundoplication 2012. D. Last EGD on 11/25/2017 showed distal esophageal narrowing at the gastroesophageal junction fo r which she underwent Bougie and dilation that was complicated by microperforation. 5. Severe osteoporosis. A. History of compression fractures of T4 through T12 and L1 and 2. B. Complicated by severe kyphosis of the spine. 6. Coronary artery disease. A. Status post stent in the left anterior descending artery, 01/2008. B. Presently asymptomatic. 7. Hypertension. 8. History of cancer of the colon. A. Status post right hemicolectomy 1997. B. Last colonoscopy 04/09/2017 showed no evidence of recurrence and normal anastomosis. C. No evidence of disease. 9. History of recurrent venous thrombosis and pulmonary embolism. A. History of bilateral deep vein thrombosis, complicated by pulmonary embolism following diaphr agmatic hernia repair in 03/2013. B. Recurrent deep vein thrombosis of the right leg in 01/2016. C. Long-term anticoagulation with Xarelto. D. Presently asymptomatic. 10. Cervical spondylosis. 11. Asthma. A. Asymptomatic. 12. Hearing impairment. 13. Venous insufficiency of the lower extremities. 14. Sinus bradycardia. A. Asymptomatic. B. Contributed to by the propranolol that she uses for her tremors. PLAN: Continue present care. The patient is scheduled to see a thoracic surgeon on 12/16/2017. Pre viously, the patient had symptomatic bradycardia when she was on propranolol 20 mg 4 times a day. Th is was stopped, but had to be restarted at a reduced dose of that 20 mg b.i.d. due to her severe trem ors. She is presently asymptomatic. We will just hold her morning dose since her pulse is 47. Cont inue physical therapy.
[2017-12-08] MEDS: Rivaroxaban 10 MG TAB PO SCH (17:15)
[2017-12-08] MEDS: Lidocaine Patch Removal 1 EACH TOP SCH (19:30)
[2017-12-09] MEDS: Rosuvastatin 10 MG TAB PO SCH (08:19)
[2017-12-09] MEDS: Polyethylene Glycol 3350 17 GM Packet PO SCH (08:19)
[2017-12-09] MEDS: Lidocaine 5% Patch TD SCH (08:19)
[2017-12-09] MEDS: Gabapentin 100 MG CAP PO SCH ×3 (08:20→20:15)
[2017-12-09] MEDS: Propranolol 10 MG TAB PO SCH ×2 (08:20→20:15)
[2017-12-09] MEDS: Ezetimibe 10 MG TAB PO SCH (08:20)
[2017-12-09] MEDS: Losartan 25 MG TAB PO SCH (08:20)
[2017-12-09] MEDS: Lantiseptic Ointment 130 GM JAR TOP SCH ×2 (08:20→20:16)
--- NOTE | 2017-12-09 12:44 | PRG ---
DATE OF SERVICE: 12/09/2017 SUBJECTIVE: The patient said she is doing better. She is not having any trouble with a full liquid diet. She is working with therapy and making some progress. OBJECTIVE: The patient is sitting up in her bedside chair. She is alert and appears very comfortabl e, in no distress. Her temperature is 97.4. Her pulse is 59, respirations 18, O2 sat 96%, blood pre ssure 136/58. Her lungs are clear. Heart, regular rate. ASSESSMENT: 1. Weakness and severe deconditioning. A. Leaving her unable to manage her ADLs. B. Secondary to her recent hospitalization at [facility] from 11/25/2017 until . C. Continued improvement as of 12/09/2017. 2. Hospitalized at [facility] in [place] from 11/25/2017-12/02/2017. A. Gastroesophageal junction microperforation after endoscopic dilation complicated by moderate pneumoperitoneum without contrast extravasation that was managed conservatively with no opera tive intervention. 3. Gastroesophageal junction microperforation after endoscopic dilation of a stricture of the GE yolette ction following EGD and Bougie and dilation on 11/25/2017. A. No evidence of contrast extravasation on initial evaluation. B. Managed conservatively with no operative intervention. C. Continues to tolerate a full liquid diet as of 12/09/2017. 4. Gastroesophageal reflux disease A. Complicated by distal esophageal stricture. B. Status post multiple distal esophageal dilation. C. History of Shaggy fundoplication 2012. D. Last EGD on 11/25/2017 showed distal esophageal narrowing at the gastroesophageal junction fo r which she underwent Bougie and dilation that was complicated by microperforation. 5. Severe osteoporosis. A. History of compression fractures of T4 through T12 and L1 and 2. B. Complicated by severe kyphosis of the spine. 6. Coronary artery disease. A. Status post stent in the left anterior descending artery, 01/2008. B. Presently asymptomatic. 7. Hypertension. 8. History of cancer of the colon. A. Status post right hemicolectomy 1997. B. Last colonoscopy 04/09/2017 showed no evidence of recurrence and normal anastomosis. C. No evidence of disease. 9. History of recurrent venous thrombosis and pulmonary embolism. A. History of bilateral deep vein thrombosis, complicated by pulmonary embolism following diaphr agmatic hernia repair in 03/2013. B. Recurrent deep vein thrombosis of the right leg in 01/2016. C. Long-term anticoagulation with Xarelto. D. Presently asymptomatic. 10. Cervical spondylosis. 11. Asthma. A. Asymptomatic. 12. Hearing impairment. 13. Venous insufficiency of the lower extremities. 14. Sinus bradycardia. A. Asymptomatic. B. Contributed to by the propranolol that she uses for her tremors. C. Stable, remains asymptomatic as of 12/09/2017. PLAN: Continue present care. Continue present diet. Her weight is stable at 137.
[2017-12-09] MEDS: Rivaroxaban 10 MG TAB PO SCH (17:24)
[2017-12-09] MEDS: Lidocaine Patch Removal 1 EACH TOP SCH (20:16)
[2017-12-09] MEDS: traMADol HCl 50 MG TAB PO PRN (20:19)
[2017-12-10 05:31] LABS: Hemoglobin 11.3 g/dL (12.0-16.0); Platelet Count 171 thou/uL (130-400)
[2017-12-10] MEDS: Polyethylene Glycol 3350 17 GM Packet PO SCH (09:15)
[2017-12-10] MEDS: Propranolol 10 MG TAB PO SCH ×2 (09:16→20:35)
[2017-12-10] MEDS: Gabapentin 100 MG CAP PO SCH ×3 (09:16→20:35)
[2017-12-10] MEDS: Losartan 25 MG TAB PO SCH (09:16)
[2017-12-10] MEDS: Ezetimibe 10 MG TAB PO SCH (09:16)
[2017-12-10] MEDS: Rosuvastatin 10 MG TAB PO SCH (09:16)
[2017-12-10] MEDS: Lantiseptic Ointment 130 GM JAR TOP SCH ×2 (09:17→20:36)
[2017-12-10] MEDS: Lidocaine 5% Patch TD SCH (09:20)
[2017-12-10] MEDS: Rivaroxaban 10 MG TAB PO SCH (17:52)
[2017-12-10] MEDS: Lidocaine Patch Removal 1 EACH TOP SCH (20:36)
[2017-12-11] MEDS: Ezetimibe 10 MG TAB PO SCH (08:40)
[2017-12-11] MEDS: Lidocaine 5% Patch TD SCH (08:40)
[2017-12-11] MEDS: Losartan 25 MG TAB PO SCH (08:40)
[2017-12-11] MEDS: Gabapentin 100 MG CAP PO SCH ×3 (08:40→20:22)
[2017-12-11] MEDS: Lantiseptic Ointment 130 GM JAR TOP SCH ×2 (08:40→20:24)
[2017-12-11] MEDS: Propranolol 10 MG TAB PO SCH ×2 (08:41→20:22)
[2017-12-11] MEDS: Polyethylene Glycol 3350 17 GM Packet PO SCH (08:41)
[2017-12-11] MEDS: Rosuvastatin 10 MG TAB PO SCH (08:41)
--- NOTE | 2017-12-11 16:23 | PRG ---
DATE OF SERVICE: 12/11/2017 SUBJECTIVE: The patient says she is doing good. She has tolerated the full liquid diet with no prob lems. She is feeling better and feels a little stronger. OBJECTIVE: GENERAL: The patient is sitting up in a bedside chair. She is alert and appears very comfortable an d in no distress. VITAL SIGNS: Her temperature is 98.5, pulse 56, respirations 18, O2 saturation 98% on room air, bloo d pressure 130/62. Her weight is stable at 137. LUNGS: Clear. HEART: Regular rate. EXTREMITIES: No edema. ASSESSMENT: 1. Weakness and severe deconditioning. A. Leaving her unable to manage her ADLs. B. Secondary to her recent hospitalization at [facility] from 11/25/2017 until . C. Continued improvement as of 12/11/2017. 2. Hospitalized at [facility] in [place] from 11/25/2017-12/02/2017. A. Gastroesophageal junction microperforation after endoscopic dilation complicated by moderate pneumoperitoneum without contrast extravasation that was managed conservatively with no opera tive intervention. 3. Gastroesophageal junction microperforation after endoscopic dilation of a stricture of the GE yolette ction following EGD and Bougie and dilation on 11/25/2017. A. No evidence of contrast extravasation on initial evaluation. B. Managed conservatively with no operative intervention. C. Continues to tolerate a full liquid diet as of 12/11/2017. 4. Gastroesophageal reflux disease A. Complicated by distal esophageal stricture. B. Status post multiple distal esophageal dilation. C. History of Shaggy fundoplication 2012. D. Last EGD on 11/25/2017 showed distal esophageal narrowing at the gastroesophageal junction fo r which she underwent Bougie and dilation that was complicated by microperforation. 5. Severe osteoporosis. A. History of compression fractures of T4 through T12 and L1 and 2. B. Complicated by severe kyphosis of the spine. 6. Coronary artery disease. A. Status post stent in the left anterior descending artery, 01/2008. B. Presently asymptomatic. 7. Hypertension. 8. History of cancer of the colon. A. Status post right hemicolectomy 1997. B. Last colonoscopy 04/09/2017 showed no evidence of recurrence and normal anastomosis. C. No evidence of disease. 9. History of recurrent venous thrombosis and pulmonary embolism. A. History of bilateral deep vein thrombosis, complicated by pulmonary embolism following diaphr agmatic hernia repair in 03/2013. B. Recurrent deep vein thrombosis of the right leg in 01/2016. C. Long-term anticoagulation with Xarelto. D. Presently asymptomatic. 10. Cervical spondylosis. 11. Asthma. A. Asymptomatic. 12. Hearing impairment. 13. Venous insufficiency of the lower extremities. 14. Sinus bradycardia. A. Asymptomatic. B. Contributed to by the propranolol that she uses for her tremors. C. Stable, remains asymptomatic as of 12/11/2017. PLAN: Continue present care. Continue physical therapy. Continue the full liquid diet. The patie nt due to be rechecked by the thoracic surgeon at [facility] in [place] on 12/16/2017.
[2017-12-11] MEDS: Rivaroxaban 10 MG TAB PO SCH (17:17)
[2017-12-11] MEDS: traMADol HCl 50 MG TAB PO PRN (18:09)
[2017-12-11] MEDS: tiZANidine HCl 4 MG TAB PO PRN (18:09)
[2017-12-11] MEDS: Lidocaine Patch Removal 1 EACH TOP SCH (20:24)
[2017-12-12 05:17] LABS: Hemoglobin 10.3 g/dL (12.0-16.0); Platelet Count 153 thou/uL (130-400)
[2017-12-12] MEDS: traMADol HCl 50 MG TAB PO PRN (09:04)
[2017-12-12] MEDS: Lidocaine 5% Patch TD SCH (09:05)
[2017-12-12] MEDS: Losartan 25 MG TAB PO SCH (09:06)
[2017-12-12] MEDS: Rosuvastatin 10 MG TAB PO SCH (09:06)
[2017-12-12] MEDS: Gabapentin 100 MG CAP PO SCH ×3 (09:06→20:12)
[2017-12-12] MEDS: Ezetimibe 10 MG TAB PO SCH (09:06)
[2017-12-12] MEDS: Propranolol 10 MG TAB PO SCH ×2 (09:07→20:12)
[2017-12-12] MEDS: Lantiseptic Ointment 130 GM JAR TOP SCH ×2 (09:07→20:12)
[2017-12-12] MEDS: Polyethylene Glycol 3350 17 GM Packet PO SCH (09:07)
[2017-12-12] MEDS: Rivaroxaban 10 MG TAB PO SCH (17:09)
[2017-12-12] MEDS: Lidocaine Patch Removal 1 EACH TOP SCH (20:12)
[2017-12-13] MEDS: Gabapentin 100 MG CAP PO SCH ×3 (08:56→20:18)
[2017-12-13] MEDS: Losartan 25 MG TAB PO SCH (08:56)
[2017-12-13] MEDS: Lidocaine 5% Patch TD SCH (08:56)
[2017-12-13] MEDS: Ezetimibe 10 MG TAB PO SCH (08:56)
[2017-12-13] MEDS: Rosuvastatin 10 MG TAB PO SCH (08:56)
[2017-12-13] MEDS: Polyethylene Glycol 3350 17 GM Packet PO SCH (08:57)
[2017-12-13] MEDS: Propranolol 10 MG TAB PO SCH ×2 (09:00→20:18)
[2017-12-13] MEDS: Lantiseptic Ointment 130 GM JAR TOP SCH ×2 (09:07→20:20)
[2017-12-13] MEDS: Rivaroxaban 10 MG TAB PO SCH (17:13)
[2017-12-13] MEDS: Lidocaine Patch Removal 1 EACH TOP SCH (20:20)
[2017-12-14 05:08] LABS: Hemoglobin 10.4 g/dL (12.0-16.0); Platelet Count 146 thou/uL (130-400)
[2017-12-14 05:18] LABS: Calc. Creatinine Clearance 75 mL/min (70-130); Estimated GFR-MDRD Greater than 90
[2017-12-14] MEDS: Polyethylene Glycol 3350 17 GM Packet PO SCH (08:40)
[2017-12-14] MEDS: Lidocaine 5% Patch TD SCH (08:42)
[2017-12-14] MEDS: Ezetimibe 10 MG TAB PO SCH (08:42)
[2017-12-14] MEDS: Rosuvastatin 10 MG TAB PO SCH (08:42)
[2017-12-14] MEDS: Losartan 25 MG TAB PO SCH (08:43)
[2017-12-14] MEDS: Propranolol 10 MG TAB PO SCH ×2 (08:45→20:21)
[2017-12-14] MEDS: Lantiseptic Ointment 130 GM JAR TOP SCH ×2 (08:46→20:22)
[2017-12-14] MEDS: Gabapentin 100 MG CAP PO SCH ×3 (08:46→20:21)
[2017-12-14 10:30] LABS: ALT (SGPT) 12 U/L (8-55); AST (SGOT) 24 U/L (5-34); Albumin 3.1 g/dL (3.4-4.8); Alkaline Phosphatase 87 U/L (40-150); Anion Gap 13 mmol/L (10-20); BUN (Urea Nitrogen) 9 mg/dL (9.8-20.1); Bilirubin, Total 0.6 mg/dL (0.2-1.2); Calc. Creatinine Clearance 68 mL/min (70-130); Calcium 8.3 mg/dL (7.8-10.44); Carbon Dioxide 25 mmol/L (23-31); Chloride 109 mmol/L (98-107); Estimated GFR-MDRD 86; Glucose 98 mg/dL (83-110); Potassium 4.1 mmol/L (3.5-5.1); Protein, Total 5.1 g/dL (6.0-8.3); Sodium 143 mmol/L (136-145)
--- NOTE | 2017-12-14 11:23 | PRG ---
DATE OF SERVICE: 12/14/2017 SUBJECTIVE: The patient has been doing well. She is doing well with her walking. She is still doing well with a full liquid diet. She is scheduled to go to [place] on Tuesday12/16/2017 for reevaluatio n and repeat x-rays. OBJECTIVE: The patient is sitting up in her bedside chair. She is alert and appears very comfortabl e. Her temperature is 96.4, pulse 65, respirations 18, O2 sat 96% on room air, blood pressure 132/65 . Lungs are clear. Heart, regular rate. ASSESSMENT: 1. Weakness and severe deconditioning. A. Leaving her unable to manage her ADLs. B. Secondary to her recent hospitalization at [facility] in [place] from 11/25/2017 until . C. Continued improvement as of 12/14/2017. 2. Hospitalized at [facility] in [place] from 11/25/2017-12/02/2017. A. Gastroesophageal junction microperforation after endoscopic dilation complicated by moderate pneumoperitoneum without contrast extravasation that was managed conservatively with no opera tive intervention. 3. Gastroesophageal junction microperforation after endoscopic dilation of a stricture of the GE yolette ction following EGD and Bougie and dilation on 11/25/2017. A. No evidence of contrast extravasation on initial evaluation. B. Managed conservatively with no operative intervention. C. Continues to tolerate a full liquid diet as of 12/14/2017. 4. Gastroesophageal reflux disease A. Complicated by distal esophageal stricture. B. Status post multiple distal esophageal dilation. C. History of Shaggy fundoplication 2012. D. Last EGD on 11/25/2017 showed distal esophageal narrowing at the gastroesophageal junction fo r which she underwent Bougie and dilation that was complicated by microperforation. 5. Severe osteoporosis. A. History of compression fractures of T4 through T12 and L1 and 2. B. Complicated by severe kyphosis of the spine. 6. Coronary artery disease. A. Status post stent in the left anterior descending artery, 01/2008. B. Presently asymptomatic. 7. Hypertension. 8. History of cancer of the colon. A. Status post right hemicolectomy 1997. B. Last colonoscopy 04/09/2017 showed no evidence of recurrence and normal anastomosis. C. No evidence of disease. 9. History of recurrent venous thrombosis and pulmonary embolism. A. History of bilateral deep vein thrombosis, complicated by pulmonary embolism following diaphr agmatic hernia repair in 03/2013. B. Recurrent deep vein thrombosis of the right leg in 01/2016. C. Long-term anticoagulation with Xarelto. D. Presently asymptomatic. 10. Cervical spondylosis. 11. Asthma. A. Asymptomatic. 12. Hearing impairment. 13. Venous insufficiency of the lower extremities. 14. Sinus bradycardia. A. Asymptomatic. B. Contributed to by the propranolol that she uses for her tremors. C. Stable, remains asymptomatic as of 12/14/2017. PLAN: Continue physical therapy. We will recheck CBC and CMP in the morning. The patient will have a pass to see her thoracic surgeon on Tuesday12/16/2017. There she will have repeat barium swallow and then see the thoracic surgeon in follow up.
[2017-12-14] MEDS: Rivaroxaban 10 MG TAB PO SCH (16:47)
[2017-12-14] MEDS: traMADol HCl 50 MG TAB PO PRN (20:21)
[2017-12-14] MEDS: Lidocaine Patch Removal 1 EACH TOP SCH (20:22)
[2017-12-15 05:59] LABS: Hemoglobin 11.3 g/dL (12.0-16.0); Mean Corpuscular HGB CONC 33.6 g/dL (32.0-36.0); Mean Corpuscular Hemoglobin 33.6 pg (27.0-31.0); Mean Platelet Volume 7.7 fL (7.4-10.4); Platelet Count 149 thou/uL (130-400); Red Blood Cell (RBC) Count 3.36 mill/uL (4.20-5.40); White Blood Cell (WBC) Count 3.3 thou/uL (4.8-10.8)
[2017-12-15] MEDS: Lidocaine 5% Patch TD SCH (08:53)
[2017-12-15] MEDS: Polyethylene Glycol 3350 17 GM Packet PO SCH (08:53)
[2017-12-15] MEDS: Rosuvastatin 10 MG TAB PO SCH (08:54)
[2017-12-15] MEDS: Propranolol 10 MG TAB PO SCH ×2 (08:54→20:31)
[2017-12-15] MEDS: Losartan 25 MG TAB PO SCH (08:54)
[2017-12-15] MEDS: Ezetimibe 10 MG TAB PO SCH (08:55)
[2017-12-15] MEDS: Gabapentin 100 MG CAP PO SCH ×3 (08:55→20:32)
[2017-12-15] MEDS: Lantiseptic Ointment 130 GM JAR TOP SCH ×2 (09:00→20:34)
[2017-12-15 09:11] LABS: MDiff Complete? YES; Manual Diff?? YES
[2017-12-15 09:12] LABS: Anisocytosis SLIGHT = 6-15 cells (100X) (0-5/hpf); Band 3 % (5-11); Eosinophils 4 % (0-10); Lymphocytes 54 % (21-51); Monocytes 3 % (0-10); Neutrophil 36 % (42-75); PLT Morphology Comment Appears Adequate
[2017-12-15] MEDS: Rivaroxaban 10 MG TAB PO SCH (17:22)
[2017-12-15] MEDS: Lidocaine Patch Removal 1 EACH TOP SCH (20:31)
[2017-12-15] MEDS: traMADol HCl 50 MG TAB PO PRN (20:32)
[2017-12-15 20:38] VITALS: BMI 26.5
[2017-12-16] MEDS: Rosuvastatin 10 MG TAB PO SCH (07:42)
[2017-12-16] MEDS: Losartan 25 MG TAB PO SCH (07:42)
[2017-12-16] MEDS: Gabapentin 100 MG CAP PO SCH ×3 (07:42→20:03)
[2017-12-16] MEDS: Lidocaine 5% Patch TD SCH (07:42)
[2017-12-16] MEDS: Ezetimibe 10 MG TAB PO SCH (07:43)
[2017-12-16] MEDS: Lantiseptic Ointment 130 GM JAR TOP SCH ×2 (07:43→20:08)
[2017-12-16] MEDS: Propranolol 10 MG TAB PO SCH ×2 (07:44→20:05)
[2017-12-16] MEDS: Polyethylene Glycol 3350 17 GM Packet PO SCH (07:44)
--- NOTE | 2017-12-16 10:28 | PRG ---
DATE OF SERVICE: 12/16/2016 SUBJECTIVE: The patient said she is feeling better. She is walking further using her rolling walker and she is transferring better. She will leave this morning to be taken to [facility] in [place] to see her thoracic surgeon. Before that visit, she will have barium swallow and then after h is visit will return here. OBJECTIVE: The patient is sitting up in her bedside chair. She is dressed, looks very comfortable a nd in no distress. Her vital signs show a temperature of 96.9, pulse 50, respirations 20, O2 sat 99% on room air, blood pressure was 139/65. Lungs are clear. Heart, regular rate. Extremities; no arlene ma. Her lab done yesterday showed an H&H of 11.3 and 33.6, white cell count 3300 with 36% segs, 3% bands, 54% lymphocytes, and platelet count 149,000. Sodium 143, potassium 4.1, BUN 9, creatinine 0.66, GFR 86, albumin 3.1. ASSESSMENT: 1. Weakness and severe deconditioning. A. Leaving her unable to manage her ADLs. B. Secondary to her recent hospitalization at [facility] from 11/25/2017 until . C. Continued improvement with walking further and transferring easily as of 12/16/2017. 2. Hospitalized at [facility] in [place] from 11/25/2017-12/02/2017. A. Gastroesophageal junction microperforation after endoscopic dilation complicated by moderate pneumoperitoneum without contrast extravasation that was managed conservatively with no opera tive intervention. 3. Gastroesophageal junction microperforation after endoscopic dilation of a stricture of the GE yolette ction following EGD and Bougie and dilation on 11/25/2017. A. No evidence of contrast extravasation on initial evaluation. B. Managed conservatively with no operative intervention. C. Continues to tolerate a full liquid diet as of 12/16/2017. 4. Gastroesophageal reflux disease A. Complicated by distal esophageal stricture. B. Status post multiple distal esophageal dilation. C. History of Shaggy fundoplication 2012. D. Last EGD on 11/25/2017 showed distal esophageal narrowing at the gastroesophageal junction fo r which she underwent Bougie and dilation that was complicated by microperforation. 5. Severe osteoporosis. A. History of compression fractures of T4 through T12 and L1 and 2. B. Complicated by severe kyphosis of the spine. 6. Coronary artery disease. A. Status post stent in the left anterior descending artery, 01/2008. B. Presently asymptomatic. 7. Hypertension. 8. History of cancer of the colon. A. Status post right hemicolectomy 1997. B. Last colonoscopy 04/09/2017 showed no evidence of recurrence and normal anastomosis. C. No evidence of disease. 9. History of recurrent venous thrombosis and pulmonary embolism. A. History of bilateral deep vein thrombosis, complicated by pulmonary embolism following diaphr agmatic hernia repair in 03/2013. B. Recurrent deep vein thrombosis of the right leg in 01/2016. C. Long-term anticoagulation with Xarelto. D. Presently asymptomatic. 10. Cervical spondylosis. 11. Asthma. A. Asymptomatic. 12. Hearing impairment. 13. Venous insufficiency of the lower extremities. 14. Sinus bradycardia. A. Asymptomatic. B. Contributed to by the propranolol that she uses for her tremors. C. Stable, remains asymptomatic as of 12/16/2017. PLAN: Overall, the patient is doing better. Her hemoglobin was up to 11.3. The patient will see he r thoracic surgeon regarding the gastroesophageal juncture microperforation today and then will retur n here. We will continue present care. Continue physical therapy.
[2017-12-16] MEDS: Rivaroxaban 10 MG TAB PO SCH (17:05)
[2017-12-16] MEDS: traMADol HCl 50 MG TAB PO PRN (20:04)
[2017-12-16] MEDS: Lidocaine Patch Removal 1 EACH TOP SCH (20:07)
[2017-12-17 06:30] LABS: Hemoglobin 11.7 g/dL (12.0-16.0); Platelet Count 158 thou/uL (130-400)
[2017-12-17] MEDS: Gabapentin 100 MG CAP PO SCH ×3 (08:54→20:24)
[2017-12-17] MEDS: Propranolol 10 MG TAB PO SCH ×2 (08:54→20:25)
[2017-12-17] MEDS: Polyethylene Glycol 3350 17 GM Packet PO SCH (08:54)
[2017-12-17] MEDS: Rosuvastatin 10 MG TAB PO SCH (08:55)
[2017-12-17] MEDS: Ezetimibe 10 MG TAB PO SCH (08:55)
[2017-12-17] MEDS: Lidocaine 5% Patch TD SCH (08:55)
[2017-12-17] MEDS: Lantiseptic Ointment 130 GM JAR TOP SCH ×2 (08:55→20:27)
[2017-12-17] MEDS: Losartan 25 MG TAB PO SCH (08:55)
--- NOTE | 2017-12-17 12:32 | PRG ---
DATE OF SERVICE: 12/17/2017 SUBJECTIVE: The patient said she is doing fine. She tolerated the trip to [facility] in [place] yesterday. She saw a thoracic surgeon in followup, Dr. Boby Owen for the recent esophageal m icroperforation after EGD bougie and dilation of the distal esophageal stricture. She is doing well. A repeat chest x-ray there showed no evidence of pneumomediastinum or pneumoperitoneum. They felt that Cesia was doing very well and recommended (01:20) advance her back to regular diet as to lerated. OBJECTIVE: GENERAL: The patient is sitting up in a bedside chair. She is alert, talkative, looks very comforta ble, and in no distress. VITAL SIGNS: Show temperature 96.8, pulse 52, respirations 16, O2 sat 98% on room air, blood pressur e 137/63. LUNGS: Clear. HEART: Regular rate. ASSESSMENT: 1. Weakness and severe deconditioning. A. Leaving her unable to manage her ADLs. B. Secondary to her recent hospitalization at [facility] from 11/25/2017 until . C. Continued improvement with walking further and transferring easily as of 12/17/2017. 2. Hospitalized at [facility] in [place] from 11/25/2017-12/02/2017. A. Gastroesophageal junction microperforation after endoscopic dilation complicated by moderate pneumoperitoneum without contrast extravasation that was managed conservatively with no opera tive intervention. 3. Gastroesophageal junction microperforation after endoscopic dilation of a stricture of the GE yolette ction following EGD and Bougie and dilation on 11/25/2017. A. No evidence of contrast extravasation on initial evaluation. B. Managed conservatively with no operative intervention. C. Followup with thoracic surgery at [facility] on 12/16/2017 showed excellent progres s. Followup chest x-ray showed no evidence of pneumomediastinum nor pneumoperitoneum, aeration i n the base is much improved. The recommendation was to advance her to regular diet as tolerated. 4. Gastroesophageal reflux disease A. Complicated by distal esophageal stricture. B. Status post multiple distal esophageal dilation. C. History of Shaggy fundoplication 2012. D. Last EGD on 11/25/2017 showed distal esophageal narrowing at the gastroesophageal junction fo r which she underwent Bougie and dilation that was complicated by microperforation. 5. Severe osteoporosis. A. History of compression fractures of T4 through T12 and L1 and 2. B. Complicated by severe kyphosis of the spine. 6. Coronary artery disease. A. Status post stent in the left anterior descending artery, 01/2008. B. Presently asymptomatic. 7. Hypertension. 8. History of cancer of the colon. A. Status post right hemicolectomy 1997. B. Last colonoscopy 04/09/2017 showed no evidence of recurrence and normal anastomosis. C. No evidence of disease. 9. History of recurrent venous thrombosis and pulmonary embolism. A. History of bilateral deep vein thrombosis, complicated by pulmonary embolism following diaphr agmatic hernia repair in 03/2013. B. Recurrent deep vein thrombosis of the right leg in 01/2016. C. Long-term anticoagulation with Xarelto. D. Presently asymptomatic. 10. Cervical spondylosis. 11. Asthma. A. Asymptomatic. 12. Hearing impairment. 13. Venous insufficiency of the lower extremities. 14. Sinus bradycardia. A. Asymptomatic. B. Contributed to by the propranolol that she uses for her tremors. C. Stable, remains asymptomatic as of 12/16/2017. PLAN: We will advance the patient to a mechanical soft diet. We will continue physical therapy. If she continues to do well with this, anticipate a discharge on 12/20/2017.
[2017-12-17] MEDS: Rivaroxaban 10 MG TAB PO SCH (17:12)
[2017-12-17] MEDS: traMADol HCl 50 MG TAB PO PRN (20:25)
[2017-12-17] MEDS: Lidocaine Patch Removal 1 EACH TOP SCH (20:27)
[2017-12-18] MEDS: Gabapentin 100 MG CAP PO SCH ×3 (09:06→19:58)
[2017-12-18] MEDS: Losartan 25 MG TAB PO SCH (09:06)
[2017-12-18] MEDS: Propranolol 10 MG TAB PO SCH ×2 (09:06→19:59)
[2017-12-18] MEDS: Ezetimibe 10 MG TAB PO SCH (09:06)
[2017-12-18] MEDS: Lidocaine 5% Patch TD SCH (09:07)
[2017-12-18] MEDS: Polyethylene Glycol 3350 17 GM Packet PO SCH (09:07)
[2017-12-18] MEDS: Rosuvastatin 10 MG TAB PO SCH (09:09)
[2017-12-18] MEDS: Lantiseptic Ointment 130 GM JAR TOP SCH ×2 (09:13→19:59)
[2017-12-18] MEDS: Rivaroxaban 10 MG TAB PO SCH (16:58)
[2017-12-18] MEDS: traMADol HCl 50 MG TAB PO PRN (19:58)
[2017-12-18] MEDS: Lidocaine Patch Removal 1 EACH TOP SCH (19:59)
[2017-12-19 06:15] LABS: Hemoglobin 11.7 g/dL (12.0-16.0); Platelet Count 151 thou/uL (130-400)
[2017-12-19] MEDS: Lidocaine 5% Patch TD SCH (08:29)
[2017-12-19] MEDS: Polyethylene Glycol 3350 17 GM Packet PO SCH (08:30)
[2017-12-19] MEDS: Losartan 25 MG TAB PO SCH (08:31)
[2017-12-19] MEDS: Ezetimibe 10 MG TAB PO SCH (08:31)
[2017-12-19] MEDS: Propranolol 10 MG TAB PO SCH ×2 (08:31→19:58)
[2017-12-19] MEDS: Rosuvastatin 10 MG TAB PO SCH (08:31)
[2017-12-19] MEDS: Gabapentin 100 MG CAP PO SCH ×3 (08:32→19:57)
[2017-12-19] MEDS: Lantiseptic Ointment 130 GM JAR TOP SCH ×2 (08:32→20:00)
[2017-12-19] MEDS ORDERED: Bisacodyl 10 MG SUPP PR PRN (09:15)
--- NOTE | 2017-12-19 09:56 | PRG ---
DATE OF SERVICE: 12/19/2017 SUBJECTIVE: The patient said she is doing good. She has not had any trouble with mechanical soft di et. She seems to be swallowing this well. She said she occasionally has just a little mild cramping in the stomach after she eats, but then this passes pretty quickly. She has had no choking and no v omiting. She is doing better with her therapy. OBJECTIVE: The patient is sitting up in a chair. She appears very comfortable and in no distress. Her temperature is 97.3, pulse 52, respirations 20, O2 sat 98% on room air, blood pressure 140/59. L ungs are clear. Heart, regular rate. ASSESSMENT: 1. Weakness and severe deconditioning. A. Leaving her unable to manage her ADLs. B. Secondary to her recent hospitalization at [facility] from 11/25/2017 until . C. Continued improvement with walking further and transferring easily as of 12/19/2017. 2. Hospitalized at [facility] in [place] from 11/25/2017-12/02/2017. A. Gastroesophageal junction microperforation after endoscopic dilation complicated by moderate pneumoperitoneum without contrast extravasation that was managed conservatively with no opera tive intervention. 3. Gastroesophageal junction microperforation after endoscopic dilation of a stricture of the GE yolette ction following EGD and Bougie and dilation on 11/25/2017. A. No evidence of contrast extravasation on initial evaluation. B. Managed conservatively with no operative intervention. C. Followup with thoracic surgery at [facility] on 12/16/2017 showed excellent progres s. Followup chest x-ray showed no evidence of pneumomediastinum nor pneumoperitoneum, aeration i n the base is much improved. The recommendation was to advance her to regular diet as tolerated. D. Tolerating mechanical soft diet as of 12/19/2017. 4. Gastroesophageal reflux disease A. Complicated by distal esophageal stricture. B. Status post multiple distal esophageal dilation. C. History of Shaggy fundoplication 2012. D. Last EGD on 11/25/2017 showed distal esophageal narrowing at the gastroesophageal junction fo r which she underwent Bougie and dilation that was complicated by microperforation. 5. Severe osteoporosis. A. History of compression fractures of T4 through T12 and L1 and 2. B. Complicated by severe kyphosis of the spine. 6. Coronary artery disease. A. Status post stent in the left anterior descending artery, 01/2008. B. Presently asymptomatic. 7. Hypertension. 8. History of cancer of the colon. A. Status post right hemicolectomy 1997. B. Last colonoscopy 04/09/2017 showed no evidence of recurrence and normal anastomosis. C. No evidence of disease. 9. History of recurrent venous thrombosis and pulmonary embolism. A. History of bilateral deep vein thrombosis, complicated by pulmonary embolism following diaphr agmatic hernia repair in 03/2013. B. Recurrent deep vein thrombosis of the right leg in 01/2016. C. Long-term anticoagulation with Xarelto. D. Presently asymptomatic. 10. Cervical spondylosis. 11. Asthma. A. Asymptomatic. 12. Hearing impairment. 13. Venous insufficiency of the lower extremities. 14. Sinus bradycardia. A. Asymptomatic. B. Contributed to by the propranolol that she uses for her tremors. C. Stable, remains asymptomatic as of 12/19/2017. PLAN: Continue physical therapy, continue the mechanical soft diet, anticipate discharge tomorrow so family will have time to prepare for her return to the house tomorrow.
[2017-12-19] MEDS: Rivaroxaban 10 MG TAB PO SCH (17:15)
[2017-12-19] MEDS: Lidocaine Patch Removal 1 EACH TOP SCH (19:58)
[2017-12-20] MEDS: Propranolol 10 MG TAB PO SCH (08:16)
[2017-12-20] MEDS: Rosuvastatin 10 MG TAB PO SCH (08:16)
[2017-12-20] MEDS: Losartan 25 MG TAB PO SCH (08:16)
[2017-12-20] MEDS: Ezetimibe 10 MG TAB PO SCH (08:16)
[2017-12-20] MEDS: Polyethylene Glycol 3350 17 GM Packet PO SCH (08:17)
[2017-12-20] MEDS: Lantiseptic Ointment 130 GM JAR TOP SCH (08:17)
[2017-12-20] MEDS: Gabapentin 100 MG CAP PO SCH (08:17)
[2017-12-20] MEDS: Lidocaine 5% Patch TD SCH (08:17)
[2017-12-20 08:34] VITALS: BP 148/67; TEMP 97.5
--- NOTE | 2017-12-20 12:35 | DIS ---
FINAL DIAGNOSES: 1. Weakness and severe deconditioning. A. Leaving her unable to manage her ADLs. B. Secondary to her recent hospitalization at [facility] in [place] from 11/25/2017 until . C. Continued improvement with walking further and transferring easily as of 12/20/2017. 2. Hospitalized at [facility] in [place] from 11/25/2017-12/02/2017. A. Gastroesophageal junction microperforation after endoscopic dilation complicated by moderate pneumoperitoneum without contrast extravasation that was managed conservatively with no opera tive intervention. 3. Gastroesophageal junction microperforation after endoscopic dilation of a stricture of the GE yolette ction following EGD and Bougie and dilation on 11/25/2017. A. No evidence of contrast extravasation on initial evaluation. B. Managed conservatively with no operative intervention. C. Followup with thoracic surgery at [facility] on 12/16/2017 showed excellent progres s. Followup chest x-ray showed no evidence of pneumomediastinum nor pneumoperitoneum, aeration i n the base is much improved. The recommendation was to advance her to regular diet as tolerated. D. Tolerating mechanical soft diet as of 12/20/2017. 4. Gastroesophageal reflux disease A. Complicated by distal esophageal stricture. B. Status post multiple distal esophageal dilation. C. History of Shaggy fundoplication 2012. D. Last EGD on 11/25/2017 showed distal esophageal narrowing at the gastroesophageal junction fo r which she underwent Bougie and dilation that was complicated by microperforation. 5. Severe osteoporosis. A. History of compression fractures of T4 through T12 and L1 and 2. B. Complicated by severe kyphosis of the spine. 6. Coronary artery disease. A. Status post stent in the left anterior descending artery, 01/2008. B. Presently asymptomatic. 7. Hypertension. 8. History of cancer of the colon. A. Status post right hemicolectomy 1997. B. Last colonoscopy 04/09/2017 showed no evidence of recurrence and normal anastomosis. C. No evidence of disease. 9. History of recurrent venous thrombosis and pulmonary embolism. A. History of bilateral deep vein thrombosis, complicated by pulmonary embolism following diaphr agmatic hernia repair in 03/2013. B. Recurrent deep vein thrombosis of the right leg in 01/2016. C. Long-term anticoagulation with Xarelto. D. Presently asymptomatic. 10. Cervical spondylosis. 11. Asthma. A. Asymptomatic. 12. Hearing impairment. 13. Venous insufficiency of the lower extremities. 14. Sinus bradycardia. A. Asymptomatic. B. Contributed to by the propranolol that she uses for her tremors. C. Stable, remains asymptomatic as of 12/19/2017. SUMMARY: The patient is an 82-year-old white female who has a history of recurrent DVTs and pulmonar y embolism for which she is on Xarelto. She also has coronary artery disease for which she has had a stent 2007. She has had a TIA and severe osteoporosis with multiple thoracolumbar compression fract ures leaving her with severe kyphosis. She has aortic regurgitation, hypertension and cancer of the colon for which she underwent a right hemicolectomy in 1997 with no signs of any recurrence at last c olonoscopy in 03/2017. She lives alone and usually is able to attend to her ADLs. Her family lives next door to assist her if needed, and assist with all her instrumental ADLs. The patient has a hist ory of Shaggy fundoplication. The patient developed progressive dysphagia with possible obstruction in the esophagus. She underwent an EGD that showed narrowing of the distal esophagus. She underwent a bougie and balloon dilation of the distal esophageal stricture at the GE juncture on 11/25/2017 by her divinity professor, Dr. Barger. Postoperatively, she develops severe upper abdominal pain. X-ray showed a pneumomediastinum and pneumoperitoneum. The patient was transferred to the care of oracic surgeon, Dr. Santos at [facility]. Barium swallow was done and showed no barium franca kage. The CT scan showed the pneumomediastinum and the pneumoperitoneum without spillage of any of t he contrast. The patient was thought to have a microperforation of the GE junction after the endosco pic dilation. This was fortunately able to be managed conservatively. Initially she was held n.p.o. and then gradually started on full liquid diet and then was advanced to full liquid diet. She was l eft extremely weak. It was elected to move the patient to [facility] on 12/02/2017 for physica l therapy for continual strengthening in an effort to improve her general functional capability. Her goals were to be able to return to her home. She was tolerating a full liquid diet. HOSPITAL COURSE: The patient did very well on the full liquid diet. She had no trouble, no vomiting , no regurgitation. She had a followup trip to [facility] in [place] on 12/16/2017 and un derwent a chest x-ray which showed no evidence of the pneumomediastinum or the pneumoperitoneum. She was swallowing well and the surgeons were very pleased with her progress. It was recommended that h er diet be advanced to a regular diet as tolerated and then follow up with them in 3 weeks. The fauzia ent was placed on a mechanical soft diet, which she tolerated very well, had no difficulty with the s wallowing and no pain with the swallowing. The patient made excellent progress with her physical the rapy and was walking up to 500 feet and was able to transfer with only standby assistance. Her condi tion was improved where she felt like she would be fine at home with her family living next door that would be there to assist. Home health will also look in, [facility] will see her and al so arrange for continuation of in-home physical therapy, occupational therapy, and speech therapy. T he patient was discharged in good condition on 12/20/2017. DISPOSITION: DIET: Diet will be a mechanical soft. The patient should eat small bites, sit upright for all of he r meals. ACTIVITIES: Ambulate with the use of a walker. [facility] will see her and arrange for in-home PT, OT, and speech therapy. MEDICATIONS: Rosuvastatin 20 mg daily, Xarelto 15 mg daily, propranolol 20 mg b.i.d., lidocaine 5% p atch apply to the back daily, leave on for 12 hours and then remove for 12 hours, gabapentin 100 mg t .i.d., losartan 100 mg daily, Zetia 10 mg daily, Zanaflex 4 mg every 8 hours as needed, furosemide 40 mg b.i.d. as needed for swelling, acetaminophen 325 mg 2 every 4 hours as needed, Zofran oral disint egrating tablets 4 mg every 8 hours as needed, pantoprazole 40 mg daily, tramadol 50 mg b.i.d. as nee ded. FOLLOW UP: The patient will be seen in followup in 2 weeks with basic metabolic panel and CBC. CODE STATUS: Full code.
== END 2017-12-20 10:43 | disposition home health service (06) | DRG 920 ==
LOC: MADMS 13:54
PROVIDERS: ADMIT Family Medicine; ATTEND Family Medicine
DX: K91.71 Accidental puncture and laceration of a digestive system organ or structure during a digestive system procedure (principal); S36.81XA Injury of peritoneum, initial encounter; K22.2 Esophageal obstruction; R00.1 Bradycardia, unspecified; H91.90 Unspecified hearing loss, unspecified ear; I10 Essential (primary) hypertension; I25.10 Atherosclerotic heart disease of native coronary artery without angina pectoris; K21.9 Gastro-esophageal reflux disease without esophagitis; M81.0 Age-related osteoporosis without current pathological fracture; I87.2 Venous insufficiency (chronic) (peripheral); J45.909 Unspecified asthma, uncomplicated; M40.209 Unspecified kyphosis, site unspecified; M47.892 Other spondylosis, cervical region; Z79.01 Long term (current) use of anticoagulants; Z86.711 Personal history of pulmonary embolism; Z86.718 Personal history of other venous thrombosis and embolism; Z95.5 Presence of coronary angioplasty implant and graft; Z86.73 Personal history of transient ischemic attack (TIA), and cerebral infarction without residual deficits; Z87.310 Personal history of (healed) osteoporosis fracture; Z90.49 Acquired absence of other specified parts of digestive tract; Z85.038 Personal history of other malignant neoplasm of large intestine; Y83.8 Other surgical procedures as the cause of abnormal reaction of the patient, or of later complication, without mention of misadventure at the time of the procedure
CPT/HCPCS: 36415; 36416; 80053; 82565; 85014; 85018; 85025; 85049; G8978-GP-CL; G8979-GP-CJ

== ENCOUNTER 2018-04-18 10:34 | Outpatient (CLI) | payer MEDICARE ==
[2018-04-18 10:55] LABS: #Eosinphils 0.1 thou/uL (0.0-0.7); #Lymphocytes 1.2 thou/uL (1.20-3.40); #Monocytes 0.3 thou/uL (0.11-0.59); #Neutrophils 2.1 thou/uL (1.40-6.50); %Basophils 0.7 % (0.0-1.0); %Lymphocytes 31.8 % (21.0-51.0); %Monocytes 7.9 % (0.0-10.0); %Neutrophils 56.7 % (42.0-75.0); Hemoglobin 11.7 g/dL (12.0-16.0); Mean Corpuscular HGB CONC 31.5 g/dL (32.0-36.0); Mean Corpuscular Hemoglobin 30.1 pg (27.0-31.0); Mean Corpuscular Volume 95.4 fl (81.0-99.0); Mean Platelet Volume 6.5 fL (7.4-10.4); Platelet Count 159 thou/uL (130-400); RBC Distribution Width 12.5 % (11.5-14.5); Red Blood Cell (RBC) Count 3.89 mill/uL (4.20-5.40); White Blood Cell (WBC) Count 3.6 thou/uL (4.8-10.8)
[2018-04-18 11:09] LABS: ALT (SGPT) 9 U/L (8-55); AST (SGOT) 17 U/L (5-34); Albumin 3.7 g/dL (3.4-4.8); Alkaline Phosphatase 81 U/L (40-150); Anion Gap 14 mmol/L (10-20); BUN (Urea Nitrogen) 14 mg/dL (9.8-20.1); Bilirubin, Total 0.7 mg/dL (0.2-1.2); Calc. Creatinine Clearance 0 mL/min (70-130); Calcium 8.6 mg/dL (7.8-10.44); Carbon Dioxide 23 mmol/L (23-31); Cardiac Risk 2.1 (Less than 4.5); Chloride 111 mmol/L (98-107); Cholesterol 111 mg/dl (< 200 Desired); Estimated GFR-MDRD 83; Globulin 1.9 g/dL (2.4-3.5); Glucose 95 mg/dL (83-110); HDL Cholesterol 53 mg/dL (>60 Neg Risk); LDL Cholesterol, Calculated 47 mg/dL; Potassium 4.2 mmol/L (3.5-5.1); Protein, Total 5.6 g/dL (6.0-8.3); Sodium 144 mmol/L (136-145); Triglycerides 54 mg/dL (Less than 150)
== END 2018-04-18 10:35 | disposition home or self-care (01) ==
LOC: MADLABBHPM 10:34
PROVIDERS: ATTEND Family Medicine
DX: I10 Essential (primary) hypertension (principal); I25.10 Atherosclerotic heart disease of native coronary artery without angina pectoris
CPT/HCPCS: 80053; 80061; 85025

== ENCOUNTER 2018-07-25 07:44 | Outpatient (CLI) | payer MEDICARE ==
[2018-07-25 10:50] LABS: ALT (SGPT) 14 U/L (8-55); AST (SGOT) 22 U/L (5-34); Alkaline Phosphatase 82 U/L (40-150); Anion Gap 11 mmol/L (10-20); BUN (Urea Nitrogen) 19 mg/dL (9.8-20.1); Bilirubin, Direct 0.4 mg/dL (0.1-0.3); Bilirubin, Total 0.9 mg/dL (0.2-1.2); Calc. Creatinine Clearance 0 mL/min (70-130); Calcium 9.4 mg/dL (7.8-10.44); Carbon Dioxide 29 mmol/L (23-31); Cardiac Risk 2.1 (Less than 4.5); Chloride 109 mmol/L (98-107); Cholesterol 123 mg/dl (< 200 Desired); Estimated GFR-MDRD 72; Glucose 97 mg/dL (83-110); HDL Cholesterol 58 mg/dL (>60 Neg Risk); LDL Cholesterol, Calculated 53 mg/dL; Potassium 4.5 mmol/L (3.5-5.1); Protein, Total 6.5 g/dL (6.0-8.3); Sodium 144 mmol/L (136-145); Triglycerides 58 mg/dL (Less than 150)
== END 2018-07-25 07:45 ==
LOC: MADLABBHPM 07:44
PROVIDERS: ATTEND Family Medicine
DX: I25.10 Atherosclerotic heart disease of native coronary artery without angina pectoris (principal); I10 Essential (primary) hypertension
CPT/HCPCS: 36415; 80048; 80061; 80076

== ENCOUNTER 2019-05-02 09:54 | Outpatient (CLI) | payer MEDICARE ==
[2019-05-02 10:04] LABS: #Eosinphils 0.1 thou/uL (0.0-0.7); #Monocytes 0.4 thou/uL (0.11-0.59); #Neutrophils 1.8 thou/uL (1.40-6.50); %Basophils 0.9 % (0.0-1.0); %Eosinophils 4.5 % (0.0-10.0); %Lymphocytes 30.2 % (21.0-51.0); %Monocytes 10.7 % (0.0-10.0); %Neutrophils 53.7 % (42.0-75.0); Hemoglobin 10.5 g/dL (12.0-16.0); Mean Corpuscular HGB CONC 31.9 g/dL (32.0-36.0); Mean Corpuscular Hemoglobin 30.1 pg (27.0-31.0); Mean Corpuscular Volume 94.5 fL (78.0-98.0); Mean Platelet Volume 6.5 fL (7.4-10.4); Platelet Count 167 thou/uL (130-400); RBC Distribution Width 12.9 % (11.5-14.5); Red Blood Cell (RBC) Count 3.49 mill/uL (4.20-5.40); White Blood Cell (WBC) Count 3.3 thou/uL (4.8-10.8)
[2019-05-02 10:12] LABS: Anion Gap 14 mmol/L (10-20); BUN (Urea Nitrogen) 11 mg/dL (9.8-20.1); Calc. Creatinine Clearance 0 mL/min (70-130); Calcium 8.7 mg/dL (7.8-10.44); Carbon Dioxide 25 mmol/L (23-31); Chloride 110 mmol/L (98-107); Estimated GFR-MDRD 78; Glucose 101 mg/dL (83-110); Potassium 3.7 mmol/L (3.5-5.1); Sodium 145 mmol/L (136-145)
== END 2019-05-02 09:55 | disposition home or self-care (01) ==
LOC: MADLABBHPM 09:54
PROVIDERS: ATTEND Family Medicine
DX: R53.1 Weakness (principal)
CPT/HCPCS: 36415; 80048; 84443; 85025

== ENCOUNTER 2021-05-19 12:18 | Inpatient (IN) | payer MEDICARE ==
[2021-05-19] MEDS ORDERED: Nitroglycerin 0.4 MG TAB (25 Tab Bottle) SL PRN (17:45)
[2021-05-19] MEDS ORDERED: tiZANidine HCl 4 MG TAB PO PRN (17:45)
[2021-05-19] MEDS ORDERED: Ondansetron ODT 4 MG TAB PO PRN (17:45)
[2021-05-19] MEDS: Acetaminophen 325 MG TAB PO PRN (20:17)
[2021-05-19] MEDS: Propranolol 10 MG TAB PO SCH (20:19)
[2021-05-19] MEDS: Gabapentin 100 MG CAP PO SCH (20:21)
[2021-05-19] MEDS: Rosuvastatin 10 MG TAB PO SCH (20:22)
[2021-05-19] MEDS: Apixaban 2.5 MG TAB PO SCH (20:22)
[2021-05-19] MEDS: Isosorbide Dinitrate 10 MG TAB PO SCH (20:22)
[2021-05-20 06:02] LABS: ALT (SGPT) 10 U/L (8-55); AST (SGOT) 21 U/L (5-34); Albumin 3.1 g/dL (3.4-4.8); Alkaline Phosphatase 60 U/L (40-110); Anion Gap 11 mmol/L (10-20); BUN (Urea Nitrogen) 16 mg/dL (9.8-20.1); Bilirubin, Total 0.5 mg/dL (0.2-1.2); Calc. Creatinine Clearance 50 mL/min (70-130); Calcium 8.6 mg/dL (7.8-10.44); Carbon Dioxide 29 mmol/L (23-31); Cardiac Risk 3.2 (Less than 4.5); Chloride 106 mmol/L (98-107); Cholesterol 112 mg/dl (< 200 Desired); Globulin 2.3 g/dL (2.4-3.5); Glucose 100 mg/dL (83-110); HDL Cholesterol 35 mg/dL (>60 Neg Risk); LDL Cholesterol, Calculated 62 mg/dL; Potassium 3.8 mmol/L (3.5-5.1); Protein, Total 5.4 g/dL (5.8-8.1); Sodium 142 mmol/L (136-145); Triglycerides 77 mg/dL (Less than 150)
[2021-05-20 06:17] LABS: #Eosinphils 0.1 thou/uL (0.0-0.7); #Lymphocytes 0.9 thou/uL (1.20-3.40); #Monocytes 0.3 thou/uL (0.11-0.59); #Neutrophils 1.9 thou/uL (1.40-6.50); %Basophils 0.8 % (0.0-1.0); %Eosinophils 4.2 % (0.0-10.0); %Lymphocytes 27.4 % (21.0-51.0); %Monocytes 9.8 % (0.0-10.0); %Neutrophils 57.8 % (42.0-75.0); Hemoglobin 10.7 g/dL (12.0-16.0); Mean Corpuscular HGB CONC 29.5 g/dL (32.0-36.0); Mean Corpuscular Hemoglobin 27.8 pg (27.0-31.0); Mean Corpuscular Volume 94.2 fL (78.0-98.0); Mean Platelet Volume 7.7 fL (7.4-10.4); Platelet Count 187 thou/uL (130-400); RBC Distribution Width 15.9 % (11.5-14.5); Red Blood Cell (RBC) Count 3.86 mill/uL (4.20-5.40); White Blood Cell (WBC) Count 3.3 thou/uL (4.8-10.8)
[2021-05-20 06:22] LABS: Anisocytosis SLIGHT = 6-15 cells (100X) (0-5/hpf); Platelet Morphology Comment Appears Adequate
[2021-05-20] MEDS: Acetaminophen 325 MG TAB PO PRN ×2 (06:24→14:43)
[2021-05-20] MEDS: Losartan Potassium 50 MG TAB PO SCH (09:07)
[2021-05-20] MEDS: Gabapentin 100 MG CAP PO SCH ×3 (09:07→21:10)
[2021-05-20] MEDS: Isosorbide Dinitrate 10 MG TAB PO SCH ×3 (09:09→21:11)
[2021-05-20] MEDS: Ezetimibe 10 MG TAB PO SCH (09:09)
[2021-05-20] MEDS: Propranolol 10 MG TAB PO SCH ×2 (09:09→21:08)
[2021-05-20] MEDS: Apixaban 2.5 MG TAB PO SCH ×2 (09:10→21:08)
[2021-05-20 11:32] LABS: Hemoglobin A1c 5.5 % (4.0-6.0)
[2021-05-20 13:01] VITALS: BMI 26.9
[2021-05-20] MEDS: Rosuvastatin 10 MG TAB PO SCH (21:11)
[2021-05-21] MEDS: Propranolol 10 MG TAB PO SCH ×2 (08:32→20:49)
[2021-05-21] MEDS: Losartan Potassium 50 MG TAB PO SCH (08:33)
[2021-05-21] MEDS: Isosorbide Dinitrate 10 MG TAB PO SCH ×3 (08:33→20:50)
[2021-05-21] MEDS: Gabapentin 100 MG CAP PO SCH ×3 (08:33→20:49)
[2021-05-21] MEDS: Ezetimibe 10 MG TAB PO SCH (08:33)
[2021-05-21] MEDS: Apixaban 2.5 MG TAB PO SCH ×2 (08:36→20:50)
[2021-05-21] MEDS: Rosuvastatin 10 MG TAB PO SCH (20:48)
[2021-05-21] MEDS: Acetaminophen 325 MG TAB PO PRN (20:50)
[2021-05-22] MEDS: Acetaminophen 325 MG TAB PO PRN (06:18)
[2021-05-22] MEDS: Isosorbide Dinitrate 10 MG TAB PO SCH ×3 (08:56→21:15)
[2021-05-22] MEDS: Gabapentin 100 MG CAP PO SCH ×3 (08:56→21:14)
[2021-05-22] MEDS: Ezetimibe 10 MG TAB PO SCH (08:56)
[2021-05-22] MEDS: Propranolol 10 MG TAB PO SCH ×2 (08:56→21:15)
[2021-05-22] MEDS: Losartan Potassium 50 MG TAB PO SCH (08:56)
[2021-05-22] MEDS: Apixaban 2.5 MG TAB PO SCH ×2 (08:57→21:14)
[2021-05-22] MEDS: Rosuvastatin 10 MG TAB PO SCH (21:16)
[2021-05-22] MEDS: traMADol HCl 50 MG TAB PO PRN (21:20)
[2021-05-23] MEDS: Propranolol 10 MG TAB PO SCH ×2 (09:12→21:31)
[2021-05-23] MEDS: Ezetimibe 10 MG TAB PO SCH (09:12)
[2021-05-23] MEDS: Isosorbide Dinitrate 10 MG TAB PO SCH ×3 (09:12→21:31)
[2021-05-23] MEDS: Apixaban 2.5 MG TAB PO SCH ×2 (09:12→21:30)
[2021-05-23] MEDS: Losartan Potassium 50 MG TAB PO SCH (09:12)
[2021-05-23] MEDS: Gabapentin 100 MG CAP PO SCH ×3 (09:12→21:30)
[2021-05-23] MEDS: traMADol HCl 50 MG TAB PO PRN ×2 (09:19→21:31)
[2021-05-23] MEDS: Polyethylene Glycol 3350 17 GM Packet PO PRN (11:09)
[2021-05-23] MEDS: Rosuvastatin 10 MG TAB PO SCH (21:31)
[2021-05-24] MEDS: Propranolol 10 MG TAB PO SCH ×2 (08:50→21:26)
[2021-05-24] MEDS: Isosorbide Dinitrate 10 MG TAB PO SCH ×3 (08:50→21:26)
[2021-05-24] MEDS: Losartan Potassium 50 MG TAB PO SCH (08:50)
[2021-05-24] MEDS: Ezetimibe 10 MG TAB PO SCH (09:05)
[2021-05-24] MEDS: Apixaban 2.5 MG TAB PO SCH ×2 (09:06→21:25)
[2021-05-24] MEDS: Gabapentin 100 MG CAP PO SCH ×3 (09:06→21:27)
[2021-05-24] MEDS: Rosuvastatin 10 MG TAB PO SCH (21:25)
[2021-05-25] MEDS: Acetaminophen 325 MG TAB PO PRN (01:53)
[2021-05-25] MEDS: Apixaban 2.5 MG TAB PO SCH ×2 (09:02→20:46)
[2021-05-25] MEDS: Ezetimibe 10 MG TAB PO SCH (09:02)
[2021-05-25] MEDS: Losartan Potassium 50 MG TAB PO SCH (09:03)
[2021-05-25] MEDS: Propranolol 10 MG TAB PO SCH ×2 (09:03→20:47)
[2021-05-25] MEDS: Gabapentin 100 MG CAP PO SCH ×3 (09:04→20:47)
[2021-05-25] MEDS: Isosorbide Dinitrate 10 MG TAB PO SCH ×3 (09:04→20:47)
[2021-05-25] MEDS: Polyethylene Glycol 3350 17 GM Packet PO PRN (09:08)
[2021-05-25] MEDS ORDERED: Bisacodyl 10 MG SUPP PR PRN (16:17)
[2021-05-25] MEDS: Rosuvastatin 10 MG TAB PO SCH (20:47)
[2021-05-25] MEDS: traMADol HCl 50 MG TAB PO PRN (20:50)
[2021-05-26] MEDS: Gabapentin 100 MG CAP PO SCH ×3 (08:21→21:18)
[2021-05-26] MEDS: Losartan Potassium 50 MG TAB PO SCH (08:21)
[2021-05-26] MEDS: Ezetimibe 10 MG TAB PO SCH (08:21)
[2021-05-26] MEDS: Apixaban 2.5 MG TAB PO SCH ×2 (08:21→21:20)
[2021-05-26] MEDS: Polyethylene Glycol 3350 17 GM Packet PO SCH (08:22)
[2021-05-26] MEDS: Isosorbide Dinitrate 10 MG TAB PO SCH ×3 (08:22→21:19)
[2021-05-26] MEDS: Propranolol 10 MG TAB PO SCH ×2 (08:25→21:19)
[2021-05-26] MEDS: Rosuvastatin 10 MG TAB PO SCH (21:20)
[2021-05-26] MEDS: traMADol HCl 50 MG TAB PO PRN (21:22)
[2021-05-27] MEDS: Ezetimibe 10 MG TAB PO SCH (08:51)
[2021-05-27] MEDS: Losartan Potassium 50 MG TAB PO SCH (08:51)
[2021-05-27] MEDS: Isosorbide Dinitrate 10 MG TAB PO SCH ×3 (08:51→21:15)
[2021-05-27] MEDS: Apixaban 2.5 MG TAB PO SCH ×2 (08:51→21:15)
[2021-05-27] MEDS: Gabapentin 100 MG CAP PO SCH ×3 (08:51→21:14)
[2021-05-27] MEDS: Acetaminophen 325 MG TAB PO PRN (08:55)
[2021-05-27] MEDS: Polyethylene Glycol 3350 17 GM Packet PO SCH (08:55)
[2021-05-27] MEDS: Propranolol 10 MG TAB PO SCH ×2 (09:00→21:14)
[2021-05-27] MEDS: Rosuvastatin 10 MG TAB PO SCH (21:14)
[2021-05-28] MEDS: traMADol HCl 50 MG TAB PO PRN (01:13)
[2021-05-28] MEDS: Lidocaine 5% Patch TD PRN (08:32)
[2021-05-28] MEDS: Gabapentin 100 MG CAP PO SCH ×3 (08:35→21:04)
[2021-05-28] MEDS: Polyethylene Glycol 3350 17 GM Packet PO SCH (08:35)
[2021-05-28] MEDS: Losartan Potassium 50 MG TAB PO SCH (08:35)
[2021-05-28] MEDS: Propranolol 10 MG TAB PO SCH ×2 (08:35→21:04)
[2021-05-28] MEDS: Ezetimibe 10 MG TAB PO SCH (08:35)
[2021-05-28] MEDS: Isosorbide Dinitrate 10 MG TAB PO SCH ×3 (08:35→21:04)
[2021-05-28] MEDS: Acetaminophen 325 MG TAB PO PRN ×2 (08:36→21:08)
[2021-05-28] MEDS: Apixaban 2.5 MG TAB PO SCH ×2 (10:08→21:04)
[2021-05-28] MEDS: Rosuvastatin 10 MG TAB PO SCH (21:08)
[2021-05-29] MEDS: traMADol HCl 50 MG TAB PO PRN (01:42)
[2021-05-29] MEDS: Ezetimibe 10 MG TAB PO SCH (09:24)
[2021-05-29] MEDS: Apixaban 2.5 MG TAB PO SCH ×2 (09:24→20:24)
[2021-05-29] MEDS: Gabapentin 100 MG CAP PO SCH ×3 (09:25→20:24)
[2021-05-29] MEDS: Polyethylene Glycol 3350 17 GM Packet PO SCH (09:27)
[2021-05-29] MEDS: Acetaminophen 325 MG TAB PO PRN ×2 (09:32→19:22)
[2021-05-29] MEDS: Isosorbide Dinitrate 10 MG TAB PO SCH ×3 (09:33→20:25)
[2021-05-29] MEDS: Propranolol 10 MG TAB PO SCH ×2 (09:35→20:25)
[2021-05-29] MEDS: Losartan Potassium 50 MG TAB PO SCH (09:35)
[2021-05-29] MEDS: Rosuvastatin 10 MG TAB PO SCH (20:26)
[2021-05-30] MEDS: Acetaminophen 325 MG TAB PO PRN ×3 (01:27→20:13)
[2021-05-30] MEDS: Polyethylene Glycol 3350 17 GM Packet PO SCH (08:29)
[2021-05-30] MEDS: Lidocaine 5% Patch TD PRN (08:30)
[2021-05-30] MEDS: Propranolol 10 MG TAB PO SCH ×2 (08:30→20:11)
[2021-05-30] MEDS: Ezetimibe 10 MG TAB PO SCH (08:31)
[2021-05-30] MEDS: Isosorbide Dinitrate 10 MG TAB PO SCH ×3 (08:31→20:12)
[2021-05-30] MEDS: Gabapentin 100 MG CAP PO SCH ×3 (08:31→20:12)
[2021-05-30] MEDS: Apixaban 2.5 MG TAB PO SCH ×2 (08:31→20:13)
[2021-05-30] MEDS: Losartan Potassium 50 MG TAB PO SCH (08:31)
[2021-05-30] MEDS: traMADol HCl 50 MG TAB PO PRN (13:54)
[2021-05-30] MEDS: Rosuvastatin 10 MG TAB PO SCH (20:11)
[2021-05-31] MEDS: Propranolol 10 MG TAB PO SCH ×2 (08:56→20:38)
[2021-05-31] MEDS: Ezetimibe 10 MG TAB PO SCH (08:56)
[2021-05-31] MEDS: Apixaban 2.5 MG TAB PO SCH ×2 (08:56→20:38)
[2021-05-31] MEDS: Isosorbide Dinitrate 10 MG TAB PO SCH ×3 (08:57→20:39)
[2021-05-31] MEDS: Acetaminophen 325 MG TAB PO PRN (08:57)
[2021-05-31] MEDS: Lidocaine 5% Patch TD PRN (09:03)
[2021-05-31] MEDS: Gabapentin 100 MG CAP PO SCH ×3 (09:24→20:39)
[2021-05-31] MEDS: Polyethylene Glycol 3350 17 GM Packet PO SCH (09:25)
[2021-05-31] MEDS: Losartan Potassium 50 MG TAB PO SCH (09:25)
[2021-05-31] MEDS: traMADol HCl 50 MG TAB PO PRN (11:28)
[2021-05-31] MEDS: Rosuvastatin 10 MG TAB PO SCH (20:40)
[2021-06-01] MEDS: Ezetimibe 10 MG TAB PO SCH (09:47)
[2021-06-01] MEDS: Apixaban 2.5 MG TAB PO SCH ×2 (09:47→20:13)
[2021-06-01] MEDS: Gabapentin 100 MG CAP PO SCH ×3 (09:47→20:13)
[2021-06-01] MEDS: Losartan Potassium 50 MG TAB PO SCH (09:48)
[2021-06-01] MEDS: Polyethylene Glycol 3350 17 GM Packet PO SCH (09:48)
[2021-06-01] MEDS: Isosorbide Dinitrate 10 MG TAB PO SCH ×3 (09:48→20:17)
[2021-06-01] MEDS: Propranolol 10 MG TAB PO SCH ×2 (09:50→20:18)
[2021-06-01] MEDS ORDERED: Bisacodyl 10 MG SUPP PR PRN (15:59)
[2021-06-01] MEDS: Acetaminophen 325 MG TAB PO PRN (20:11)
[2021-06-01] MEDS: Rosuvastatin 10 MG TAB PO SCH (20:16)
[2021-06-01] MEDS: Transdermal Patch Removal TOP SCH (20:20)
[2021-06-02] MEDS: traMADol HCl 50 MG TAB PO PRN (02:31)
[2021-06-02] MEDS: Gabapentin 100 MG CAP PO SCH ×3 (09:00→20:28)
[2021-06-02] MEDS: Ezetimibe 10 MG TAB PO SCH (09:00)
[2021-06-02] MEDS: Polyethylene Glycol 3350 17 GM Packet PO SCH (09:00)
[2021-06-02] MEDS: Propranolol 10 MG TAB PO SCH ×2 (09:01→20:30)
[2021-06-02] MEDS: Acetaminophen 325 MG TAB PO PRN ×2 (09:03→20:32)
[2021-06-02] MEDS: Isosorbide Dinitrate 10 MG TAB PO SCH ×3 (09:03→20:28)
[2021-06-02] MEDS: Losartan Potassium 50 MG TAB PO SCH (09:03)
[2021-06-02] MEDS: Lidocaine 5% Patch TD PRN (09:07)
[2021-06-02] MEDS: Apixaban 2.5 MG TAB PO SCH ×2 (09:07→20:27)
[2021-06-02] MEDS: Rosuvastatin 10 MG TAB PO SCH (20:31)
[2021-06-02] MEDS: Transdermal Patch Removal TOP SCH (20:32)
[2021-06-03] MEDS: Polyethylene Glycol 3350 17 GM Packet PO SCH (09:05)
[2021-06-03] MEDS: Ezetimibe 10 MG TAB PO SCH (09:06)
[2021-06-03] MEDS: Propranolol 10 MG TAB PO SCH ×2 (09:06→21:36)
[2021-06-03] MEDS: Apixaban 2.5 MG TAB PO SCH ×2 (09:06→21:36)
[2021-06-03] MEDS: Losartan Potassium 50 MG TAB PO SCH (09:08)
[2021-06-03] MEDS: Gabapentin 100 MG CAP PO SCH ×3 (09:08→21:35)
[2021-06-03] MEDS: Isosorbide Dinitrate 10 MG TAB PO SCH ×3 (09:09→21:36)
[2021-06-03] MEDS: Acetaminophen 325 MG TAB PO PRN (09:09)
[2021-06-03] MEDS: Lidocaine 5% Patch TD PRN (11:33)
[2021-06-03] MEDS: traMADol HCl 50 MG TAB PO PRN (14:28)
[2021-06-03] MEDS: Rosuvastatin 10 MG TAB PO SCH (21:37)
[2021-06-03] MEDS: Transdermal Patch Removal TOP SCH (21:39)
[2021-06-04 05:52] LABS: Platelet Count 185 thou/uL (130-400)
[2021-06-04] MEDS: Losartan Potassium 50 MG TAB PO SCH (08:39)
[2021-06-04] MEDS: Gabapentin 100 MG CAP PO SCH ×3 (08:39→21:02)
[2021-06-04] MEDS: Ezetimibe 10 MG TAB PO SCH (08:39)
[2021-06-04] MEDS: Isosorbide Dinitrate 10 MG TAB PO SCH ×3 (08:39→20:59)
[2021-06-04] MEDS: Propranolol 10 MG TAB PO SCH ×2 (08:40→21:01)
[2021-06-04] MEDS: Lidocaine 5% Patch TD PRN (08:46)
[2021-06-04] MEDS: Apixaban 2.5 MG TAB PO SCH ×2 (08:46→20:58)
[2021-06-04] MEDS: Acetaminophen 325 MG TAB PO PRN ×2 (08:46→21:03)
[2021-06-04] MEDS: Polyethylene Glycol 3350 17 GM Packet PO SCH (08:55)
[2021-06-04] MEDS: Rosuvastatin 10 MG TAB PO SCH (20:59)
[2021-06-04] MEDS: Transdermal Patch Removal TOP SCH (21:04)
[2021-06-05] MEDS: traMADol HCl 50 MG TAB PO PRN (00:27)
[2021-06-05] MEDS: Polyethylene Glycol 3350 17 GM Packet PO SCH (08:13)
[2021-06-05] MEDS: Gabapentin 100 MG CAP PO SCH (08:14)
[2021-06-05] MEDS: Losartan Potassium 50 MG TAB PO SCH (08:14)
[2021-06-05] MEDS: Apixaban 2.5 MG TAB PO SCH (08:15)
[2021-06-05] MEDS: Ezetimibe 10 MG TAB PO SCH (08:15)
[2021-06-05] MEDS: Isosorbide Dinitrate 10 MG TAB PO SCH (08:15)
[2021-06-05] MEDS: Propranolol 10 MG TAB PO SCH (08:15)
[2021-06-05 09:55] VITALS: BP 143/55; TEMP 98
== END 2021-06-05 10:50 | disposition home or self-care (01) | DRG 947 ==
LOC: MADMS 13:49
PROVIDERS: ADMIT Family Medicine; ATTEND Family Medicine
DX: R53.81 Other malaise (principal); I21.4 Non-ST elevation (NSTEMI) myocardial infarction; M80.08XA Age-related osteoporosis with current pathological fracture, vertebra(e), initial encounter for fracture; I10 Essential (primary) hypertension; M40.204 Unspecified kyphosis, thoracic region; I25.10 Atherosclerotic heart disease of native coronary artery without angina pectoris; K21.9 Gastro-esophageal reflux disease without esophagitis; J45.909 Unspecified asthma, uncomplicated; E78.5 Hyperlipidemia, unspecified; R13.10 Dysphagia, unspecified; G89.29 Other chronic pain; M54.5 Low back pain; M54.2 Cervicalgia; G25.0 Essential tremor; I87.2 Venous insufficiency (chronic) (peripheral); G62.9 Polyneuropathy, unspecified; Z86.711 Personal history of pulmonary embolism; Z86.718 Personal history of other venous thrombosis and embolism; Z85.038 Personal history of other malignant neoplasm of large intestine; Z90.49 Acquired absence of other specified parts of digestive tract; Z90.89 Acquired absence of other organs; Z98.890 Other specified postprocedural states; Z79.01 Long term (current) use of anticoagulants; Z88.8 Allergy status to other drugs, medicaments and biological substances; Z87.891 Personal history of nicotine dependence
CPT/HCPCS: 36415; 80053; 80061; 83036; 85014; 85018; 85025; 85049

== ENCOUNTER 2021-07-31 14:24 | Emergency (ER) | payer MEDICARE ==
[2021-07-31 15:38] LABS: Bilirubin Negative (Negative); Blood, Urine Small (Negative); Clarity Clear (Clear); Glucose, Urine (Dipstick) Negative (Negative); Ketone, Urine Negative (Negative); Leukocyte Trace (Negative); Nitrite Negative (Negative); Protein, Urine (Dipstick) Negative (Neg-Trace); Specific Gravity, Urine 1.015 (1.005-1.030); Urobilinogen 0.2 mg/dL (Less than 2); pH, Urine 7.5 (5.0-9.0)
[2021-07-31 15:47] LABS: Bacteria/HPF Rare-Few HPF (None Seen)
[2021-07-31 16:00] LABS: #Eosinphils 0.1 thou/uL (0.0-0.7); #Lymphocytes 0.6 thou/uL (1.20-3.40); #Monocytes 0.3 thou/uL (0.11-0.59); #Neutrophils 2.8 thou/uL (1.40-6.50); %Basophils 0.7 % (0.0-1.0); %Eosinophils 1.5 % (0.0-10.0); %Lymphocytes 16.4 % (21.0-51.0); %Monocytes 8.3 % (0.0-10.0); %Neutrophils 73.1 % (42.0-75.0); Mean Corpuscular HGB CONC 29.7 g/dL (32.0-36.0); Mean Corpuscular Hemoglobin 27.7 pg (27.0-31.0); Mean Corpuscular Volume 93.4 fL (78.0-98.0); Mean Platelet Volume 6.5 fL (7.4-10.4); Platelet Count 166 thou/uL (130-400); RBC Distribution Width 15.7 % (11.5-14.5); Red Blood Cell (RBC) Count 3.61 mill/uL (4.20-5.40); White Blood Cell (WBC) Count 3.8 thou/uL (4.8-10.8)
[2021-07-31 16:08] LABS: ALT (SGPT) 8 U/L (8-55); AST (SGOT) 15 U/L (5-34); Alkaline Phosphatase 74 U/L (40-110); Anion Gap 12 mmol/L (10-20); BUN (Urea Nitrogen) 13 mg/dL (9.8-20.1); Bilirubin, Total 0.6 mg/dL (0.2-1.2); CK (CPK) 49 U/L (29-168); CKMB 1.3 ng/mL (0-6.6); Calc. Creatinine Clearance 0 mL/min (70-130); Calcium 8.6 mg/dL (7.8-10.44); Carbon Dioxide 24 mmol/L (23-31); Chloride 111 mmol/L (98-107); Globulin 2.1 g/dL (2.4-3.5); Glucose 109 mg/dL (83-110); Potassium 4.1 mmol/L (3.5-5.1); Protein, Total 5.1 g/dL (5.8-8.1); Sodium 143 mmol/L (136-145)
== END 2021-07-31 16:36 | disposition home or self-care (01) ==
LOC: MADERS 14:24
DX: E86.0 Dehydration (principal); R07.9 Chest pain, unspecified; D64.9 Anemia, unspecified; R53.81 Other malaise; I10 Essential (primary) hypertension; Z86.711 Personal history of pulmonary embolism; Z86.718 Personal history of other venous thrombosis and embolism; Z86.73 Personal history of transient ischemic attack (TIA), and cerebral infarction without residual deficits; K21.9 Gastro-esophageal reflux disease without esophagitis; E78.00 Pure hypercholesterolemia, unspecified; J45.909 Unspecified asthma, uncomplicated
CPT/HCPCS: 36415; 71045; 80053; 81003; 81015; 82550; 82553; 84484; 85025; 87086; 93005

== ENCOUNTER 2021-08-23 18:19 | Emergency (ER) | payer MEDICARE ==
[2021-08-23] MEDS ORDERED: Acetaminophen 325 MG TAB ONE (21:36)
[2021-08-23] MEDS ORDERED: Propranolol 10 MG TAB ONE (21:36)
== END 2021-08-24 02:08 ==
LOC: MADERS 18:19
DX: M25.552 Pain in left hip (principal); M79.652 Pain in left thigh; R53.1 Weakness; R53.81 Other malaise; I10 Essential (primary) hypertension; W19.XXXA Unspecified fall, initial encounter
CPT/HCPCS: 70450; 72125; 93005

== ENCOUNTER 2022-06-17 14:13 | Emergency (ER) | payer MEDICARE ==
[~2022-06-17 14:13] MED LIST changes: +Iopamidol 370 76% 100 ML VIAL ONE; -Milk Of Magnesia 30 ML UDCUP PO PRN
[2022-06-17 15:35] LABS: Bilirubin Negative (Negative); Blood, Urine Small (Negative); Glucose, Urine (Dipstick) Negative (Negative); Ketone, Urine Negative (Negative); Leukocyte Small (Negative); Nitrite Negative (Negative); Protein, Urine (Dipstick) Trace mg/dL (Neg-Trace); Specific Gravity, Urine 1.015 (1.005-1.030); Urobilinogen 0.2 mg/dL (Less than 2)
[2022-06-17 15:36] LABS: Clarity Hazy (Clear)
[2022-06-17 15:39] LABS: #Lymphocytes 1.1 thou/uL (1.20-3.40); #Monocytes 0.4 thou/uL (0.11-0.59); #Neutrophils 2.3 thou/uL (1.40-6.50); %Basophils 0.6 % (0.0-1.0); %Eosinophils 1.3 % (0.0-10.0); %Lymphocytes 27.6 % (21.0-51.0); %Monocytes 9.6 % (0.0-10.0); %Neutrophils 60.9 % (42.0-75.0); Hemoglobin 11.3 g/dL (12.0-16.0); Mean Corpuscular Hemoglobin 29.8 pg (27.0-31.0); Mean Corpuscular Volume 96.2 fL (78.0-98.0); Mean Platelet Volume 8.1 fL (7.4-10.4); Platelet Count 147 thou/uL (130-400); RBC Distribution Width 16.9 % (11.5-14.5); Red Blood Cell (RBC) Count 3.78 mill/uL (4.20-5.40); White Blood Cell (WBC) Count 3.8 thou/uL (4.8-10.8)
[2022-06-17 15:42] LABS: Bacteria/HPF Rare-Few HPF (None Seen)
[2022-06-17 15:50] LABS: ALT (SGPT) 10 U/L (8-55); AST (SGOT) 20 U/L (5-34); Albumin 3.9 g/dL (3.4-4.8); Alkaline Phosphatase 63 U/L (40-110); Anion Gap 16 mmol/L (10-20); BUN (Urea Nitrogen) 14 mg/dL (9.8-20.1); Bilirubin, Total 1.1 mg/dL (0.2-1.2); Calc. Creatinine Clearance 0 mL/min (70-130); Calcium 9.2 mg/dL (7.8-10.44); Carbon Dioxide 21 mmol/L (23-31); Chloride 110 mmol/L (98-107); Estimated GFR 77; Globulin 2.4 g/dL (2.4-3.5); Glucose 102 mg/dL (83-110); Lipase 18 U/L (8-78); Potassium 3.8 mmol/L (3.5-5.1); Protein, Total 6.3 g/dL (5.8-8.1); Sodium 143 mmol/L (136-145)
[2022-06-17] MEDS ORDERED: cefTRIAXone\\ROCEPHIN 1 GM VIAL ONE (17:22)
[2022-06-17] MEDS ORDERED: Sodium Chloride 0.9% 100 ML ONE (17:22)
== END 2022-06-17 18:12 | disposition home or self-care (01) ==
LOC: MADERS 14:13
DX: N39.0 Urinary tract infection, site not specified (principal); I10 Essential (primary) hypertension; Z86.73 Personal history of transient ischemic attack (TIA), and cerebral infarction without residual deficits; Z86.718 Personal history of other venous thrombosis and embolism
CPT/HCPCS: 36415; 74177; 80053; 81003; 81015; 83605; 83690; 85025; 93005; 96365; J0696; J3490; Q9967

== ENCOUNTER 2022-11-08 10:03 | Emergency (ER) | payer MEDICARE ==
[2022-11-08] MEDS ORDERED: traMADol HCl 50 MG TAB ONE (10:55)
== END 2022-11-08 11:55 | disposition home or self-care (01) ==
LOC: MADERS 10:03
DX: M54.50 Low back pain, unspecified (principal); G89.29 Other chronic pain; I25.10 Atherosclerotic heart disease of native coronary artery without angina pectoris; I10 Essential (primary) hypertension; Z86.73 Personal history of transient ischemic attack (TIA), and cerebral infarction without residual deficits
CPT/HCPCS: 99283

== ENCOUNTER 2022-12-02 12:54 | Emergency (ER) | payer MEDICARE ==
[2022-12-02 13:33] LABS: #Eosinphils 0.1 thou/uL (0.0-0.7); #Monocytes 0.3 thou/uL (0.11-0.59); #Neutrophils 2.4 thou/uL (1.40-6.50); %Basophils 1.1 % (0.0-1.0); %Eosinophils 1.4 % (0.0-10.0); %Lymphocytes 26.5 % (21.0-51.0); %Monocytes 8.8 % (0.0-10.0); %Neutrophils 62.1 % (42.0-75.0); Hemoglobin 11.5 g/dL (12.0-16.0); Mean Corpuscular HGB CONC 31.3 g/dL (32.0-36.0); Mean Corpuscular Hemoglobin 29.6 pg (27.0-31.0); Mean Corpuscular Volume 94.7 fl (78.0-98.0); Platelet Count 173 10x3/uL (130-400); RBC Distribution Width 14.5 % (11.5-14.5); Red Blood Cell (RBC) Count 3.87 mill/uL (4.20-5.40); White Blood Cell (WBC) Count 3.8 10x3/uL (4.8-10.8)
[2022-12-02 13:50] LABS: ALT (SGPT) 10 U/L (8-55); AST (SGOT) 14 U/L (5-34); Albumin 3.4 g/dL (3.4-4.8); Alkaline Phosphatase 86 U/L (40-110); Anion Gap 14 mmol/L (10-20); BUN (Urea Nitrogen) 16 mg/dL (9.8-20.1); Bilirubin, Total 0.7 mg/dL (0.2-1.2); Calc. Creatinine Clearance 0 mL/min (70-130); Calcium 9.1 mg/dL (7.8-10.44); Carbon Dioxide 24 mmol/L (23-31); Chloride 109 mmol/L (98-107); Estimated GFR 82; Globulin 2.5 g/dL (2.4-3.5); Glucose 103 mg/dL (83-110); Potassium 4.2 mmol/L (3.5-5.1); Protein, Total 5.9 g/dL (5.8-8.1); Sodium 143 mmol/L (136-145)
[2022-12-02 14:31] LABS: SARS-CoV-2 NAA Rapid Test Not Detected (NotDetected)
== END 2022-12-02 19:42 | disposition left against medical advice (07) ==
LOC: MADERS 12:54
DX: R07.9 Chest pain, unspecified (principal); Z20.822 Contact with and (suspected) exposure to COVID-19; I10 Essential (primary) hypertension; Z86.718 Personal history of other venous thrombosis and embolism; K21.9 Gastro-esophageal reflux disease without esophagitis; Z79.899 Other long term (current) drug therapy; Z79.01 Long term (current) use of anticoagulants
CPT/HCPCS: 36415; 71045; 80053; 83880; 84484; 85025; 93005; U0002

== ENCOUNTER 2022-12-12 09:07 | Emergency (ER) | payer MEDICARE ==
[2022-12-12] MEDS ORDERED: HYDROcodone/Acetaminophen 5/325 mg Tablet ONE (09:29)
[2022-12-12] MEDS ORDERED: Orphenadrine Citrate 60 MG/2 ML VIAL ONE (09:30)
[2022-12-12 10:05] LABS: #Eosinphils 0.1 thou/uL (0.0-0.7); #Lymphocytes 1.4 thou/uL (1.20-3.40); #Monocytes 0.4 thou/uL (0.11-0.59); #Neutrophils 2.3 thou/uL (1.40-6.50); %Basophils 0.7 % (0.0-1.0); %Eosinophils 2.5 % (0.0-10.0); %Lymphocytes 33.3 % (21.0-51.0); %Monocytes 8.8 % (0.0-10.0); %Neutrophils 54.8 % (42.0-75.0); Hemoglobin 12.7 g/dL (12.0-16.0); Mean Corpuscular HGB CONC 32.8 g/dL (32.0-36.0); Mean Corpuscular Hemoglobin 30.6 pg (27.0-31.0); Mean Corpuscular Volume 93.3 fl (78.0-98.0); Mean Platelet Volume 6.5 fL (7.4-10.4); Platelet Count 187 10x3/uL (130-400); RBC Distribution Width 14.2 % (11.5-14.5); Red Blood Cell (RBC) Count 4.14 mill/uL (4.20-5.40); White Blood Cell (WBC) Count 4.3 10x3/uL (4.8-10.8)
[2022-12-12 10:14] LABS: ALT (SGPT) 14 U/L (8-55); Albumin 3.5 g/dL (3.4-4.8); Alkaline Phosphatase 95 U/L (40-110); Anion Gap 17 mmol/L (10-20); BUN (Urea Nitrogen) 14 mg/dL (9.8-20.1); Bilirubin, Total 0.7 mg/dL (0.2-1.2); Calc. Creatinine Clearance 0 mL/min (70-130); Carbon Dioxide 22 mmol/L (23-31); Chloride 107 mmol/L (98-107); Estimated GFR 76; Globulin 2.8 g/dL (2.4-3.5); Glucose 92 mg/dL (83-110); Lipase 17 U/L (8-78); Potassium 4.4 mmol/L (3.5-5.1); Protein, Total 6.3 g/dL (5.8-8.1); Sodium 142 mmol/L (136-145)
[2022-12-12 10:15] LABS: AST (SGOT) 22 U/L (5-34)
== END 2022-12-12 11:10 | disposition home or self-care (01) ==
LOC: MADERS 09:07
DX: M54.50 Low back pain, unspecified (principal); G89.29 Other chronic pain; I10 Essential (primary) hypertension; Z86.711 Personal history of pulmonary embolism; Z86.718 Personal history of other venous thrombosis and embolism; K21.9 Gastro-esophageal reflux disease without esophagitis; E78.00 Pure hypercholesterolemia, unspecified; Z79.899 Other long term (current) drug therapy; Z79.01 Long term (current) use of anticoagulants
CPT/HCPCS: 74177; 80053; 83690; 85025; 96372; J2360; Q9967

== ENCOUNTER 2023-05-25 07:48 | Emergency (ER) | payer MEDICARE ==
[2023-05-25] MEDS ORDERED: Promethazine 25 MG TAB ONE (08:34)
[2023-05-25] MEDS ORDERED: Acetaminophen/Codeine 30-300mg Tablet ONE (08:34)
== END 2023-05-25 10:26 | disposition home or self-care (01) ==
LOC: MADERS 07:48
DX: M54.6 Pain in thoracic spine (principal); M81.0 Age-related osteoporosis without current pathological fracture; I10 Essential (primary) hypertension; D50.9 Iron deficiency anemia, unspecified; K21.9 Gastro-esophageal reflux disease without esophagitis; E78.00 Pure hypercholesterolemia, unspecified; J45.909 Unspecified asthma, uncomplicated; Z86.73 Personal history of transient ischemic attack (TIA), and cerebral infarction without residual deficits; Z95.5 Presence of coronary angioplasty implant and graft; Z86.711 Personal history of pulmonary embolism; Z86.718 Personal history of other venous thrombosis and embolism; Z79.01 Long term (current) use of anticoagulants; Z79.899 Other long term (current) drug therapy
CPT/HCPCS: 71045; Q0169

== ENCOUNTER 2023-06-16 15:40 | Inpatient (IN) | payer MEDICARE ==
[2023-06-16] MEDS ORDERED: Lidocaine 5% Patch TD PRN (17:05)
[2023-06-16] MEDS ORDERED: HYDROcodone/Acetaminophen 5/325 mg Tablet PO PRN (17:05)
[2023-06-16] MEDS ORDERED: Nitroglycerin 0.4 MG TAB (25 Tab Bottle) SL PRN (17:05)
[2023-06-16] MEDS ORDERED: Furosemide 40 MG TAB PO PRN (17:05)
[2023-06-16] MEDS ORDERED: Senokot 8.6 MG TAB PO SCH ×2 (21:00→22:00)
[2023-06-16] MEDS: Gabapentin 100 MG CAP PO SCH (21:09)
[2023-06-16] MEDS: Transdermal Patch Removal TOP SCH (21:31)
[2023-06-16 21:55] LABS: Bilirubin Negative (Negative); Blood, Urine Trace (Negative); Clarity Clear (Clear); Glucose, Urine (Dipstick) Negative (Negative); Ketone, Urine Negative (Negative); Leukocyte Trace (Negative); Nitrite Negative (Negative); Protein, Urine (Dipstick) Negative (Neg-Trace); Urobilinogen 0.2 mg/dL (Less than 2); pH, Urine 7.5 (5.0-9.0)
[2023-06-17] MEDS: Acetaminophen 325 MG TAB PO PRN ×2 (03:26→20:19)
[2023-06-17 05:22] LABS: #Eosinphils 0.2 thou/uL (0.0-0.7); #Lymphocytes 0.9 thou/uL (1.20-3.40); #Monocytes 0.4 thou/uL (0.11-0.59); #Neutrophils 1.9 thou/uL (1.40-6.50); %Basophils 1.3 % (0.0-1.0); %Eosinophils 6.1 % (0.0-10.0); %Lymphocytes 27.5 % (21.0-51.0); %Monocytes 10.3 % (0.0-10.0); %Neutrophils 54.8 % (42.0-75.0); Hematocrit 35.5 % (36.0-47.0); Hemoglobin 11.2 g/dL (12.0-16.0); Mean Corpuscular HGB CONC 31.5 g/dL (32.0-36.0); Mean Corpuscular Hemoglobin 31.3 pg (27.0-31.0); Mean Corpuscular Volume 99.6 fl (78.0-98.0); Mean Platelet Volume 7.8 fL (7.4-10.4); Platelet Count 189 10x3/uL (130-400); RBC Distribution Width 16.4 % (11.5-14.5); Red Blood Cell (RBC) Count 3.57 mill/uL (4.20-5.40); White Blood Cell (WBC) Count 3.4 10x3/uL (4.8-10.8)
[2023-06-17 05:42] LABS: ALT (SGPT) 28 U/L (8-55); AST (SGOT) 24 U/L (5-34); Albumin 2.7 g/dL (3.4-4.8); Alkaline Phosphatase 87 U/L (40-110); Anion Gap 13 mmol/L (10-20); BUN (Urea Nitrogen) 10 mg/dL (9.8-20.1); Bilirubin, Total 0.3 mg/dL (0.2-1.2); Calc. Creatinine Clearance 68 mL/min (70-130); Calcium 8.3 mg/dL (7.8-10.44); Carbon Dioxide 23 mmol/L (23-31); Chloride 111 mmol/L (98-107); Estimated GFR 87; Glucose 93 mg/dL (83-110); Potassium 3.5 mmol/L (3.5-5.1); Protein, Total 4.7 g/dL (5.8-8.1); Sodium 143 mmol/L (136-145)
[2023-06-17] MEDS: Gabapentin 100 MG CAP PO SCH ×3 (08:06→20:21)
[2023-06-17] MEDS: Ezetimibe 10 MG TAB PO SCH (08:06)
[2023-06-17] MEDS: Rivaroxaban 15 MG TAB PO SCH (08:06)
[2023-06-17] MEDS: Losartan Potassium 50 MG TAB PO SCH (08:07)
[2023-06-17] MEDS: Isosorbide Mononitrate 20 MG TAB PO SCH (08:08)
[2023-06-17] MEDS: Senokot 8.6 MG TAB PO SCH ×2 (08:08→20:20)
[2023-06-17] MEDS: Rosuvastatin 10 MG TAB PO SCH (08:08)
[2023-06-17] MEDS: Transdermal Patch Removal TOP SCH ×2 (08:09→20:29)
[2023-06-17] MEDS ORDERED: Lidocaine 4% Patch ONE (22:59)
[2023-06-18] MEDS: Gabapentin 100 MG CAP PO SCH ×3 (09:07→20:07)
[2023-06-18] MEDS: Losartan Potassium 50 MG TAB PO SCH (09:08)
[2023-06-18] MEDS: Isosorbide Mononitrate 20 MG TAB PO SCH (09:08)
[2023-06-18] MEDS: Rivaroxaban 15 MG TAB PO SCH (09:08)
[2023-06-18] MEDS: Rosuvastatin 10 MG TAB PO SCH (09:08)
[2023-06-18] MEDS: Ezetimibe 10 MG TAB PO SCH (09:08)
[2023-06-18] MEDS: Senokot 8.6 MG TAB PO SCH ×2 (09:08→20:07)
[2023-06-18] MEDS: Transdermal Patch Removal TOP SCH (09:09)
[2023-06-18] MEDS: traMADol HCl 50 MG TAB PO PRN ×2 (09:19→20:10)
[2023-06-18] MEDS ORDERED: Lidocaine 4% Patch TD SCH ×2 (12:00→12:45)
[2023-06-18] MEDS: Nystatin Cream 15 GM TUBE TOP SCH ×2 (14:13→20:16)
[2023-06-18] MEDS ORDERED: LIDOCAINE Patch Removal TOP SCH ×2 (23:59)
[2023-06-19] MEDS: Rivaroxaban 15 MG TAB PO SCH (08:54)
[2023-06-19] MEDS: Gabapentin 100 MG CAP PO SCH ×3 (08:54→20:30)
[2023-06-19] MEDS: Ezetimibe 10 MG TAB PO SCH (08:54)
[2023-06-19] MEDS: Isosorbide Mononitrate 20 MG TAB PO SCH (08:54)
[2023-06-19] MEDS: Losartan Potassium 50 MG TAB PO SCH (08:54)
[2023-06-19] MEDS: Senokot 8.6 MG TAB PO SCH ×2 (08:54→20:30)
[2023-06-19] MEDS: Rosuvastatin 10 MG TAB PO SCH (08:54)
[2023-06-19] MEDS: Nystatin Cream 15 GM TUBE TOP SCH ×2 (08:55→20:31)
[2023-06-19] MEDS: Lidocaine 4% Patch TD SCH (08:55)
[2023-06-19] MEDS: Ondansetron ODT 4 MG TAB PO PRN ×2 (13:15→20:30)
[2023-06-19] MEDS ORDERED: Mag-Al Plus 1200 MG/1200 MG/120 MG/30 ML UDCUP PO PRN (16:27)
[2023-06-19] MEDS ORDERED: Simethicone Chewable 80 MG TAB PO PRN (16:28)
[2023-06-19] MEDS: traMADol HCl 50 MG TAB PO PRN (17:00)
[2023-06-19] MEDS: LIDOCAINE Patch Removal TOP SCH (20:31)
[2023-06-20] MEDS: Rivaroxaban 15 MG TAB PO SCH ×2 (08:34→08:59)
[2023-06-20] MEDS: Lidocaine 4% Patch TD SCH (08:34)
[2023-06-20] MEDS: Losartan Potassium 50 MG TAB PO SCH (08:34)
[2023-06-20] MEDS: Gabapentin 100 MG CAP PO SCH ×3 (08:34→20:38)
[2023-06-20] MEDS: Isosorbide Mononitrate 20 MG TAB PO SCH (08:34)
[2023-06-20] MEDS: Ezetimibe 10 MG TAB PO SCH (08:34)
[2023-06-20] MEDS: Senokot 8.6 MG TAB PO SCH ×2 (08:34→20:38)
[2023-06-20] MEDS: Nystatin Cream 15 GM TUBE TOP SCH ×2 (08:35→20:38)
[2023-06-20] MEDS: Rosuvastatin 10 MG TAB PO SCH (08:40)
[2023-06-20] MEDS: traMADol HCl 50 MG TAB PO PRN (12:37)
[2023-06-20] MEDS ORDERED: Bisacodyl 10 MG SUPP PR PRN (14:40)
[2023-06-20] MEDS ORDERED: Fleet Saline Enema 133 ML BOT PR PRN (14:40)
[2023-06-20] MEDS ORDERED: Polyethylene Glycol 3350 17 GM Packet PO SCH (15:15)
[2023-06-20] MEDS: LIDOCAINE Patch Removal TOP SCH (21:04)
[2023-06-21] MEDS: Rosuvastatin 10 MG TAB PO SCH (08:25)
[2023-06-21] MEDS: Lidocaine 4% Patch TD SCH (08:25)
[2023-06-21] MEDS: Rivaroxaban 15 MG TAB PO SCH (08:26)
[2023-06-21] MEDS: Gabapentin 100 MG CAP PO SCH ×3 (08:26→21:28)
[2023-06-21] MEDS: Senokot 8.6 MG TAB PO SCH ×2 (08:26→21:17)
[2023-06-21] MEDS: Ezetimibe 10 MG TAB PO SCH (08:26)
[2023-06-21] MEDS: Losartan Potassium 50 MG TAB PO SCH (08:26)
[2023-06-21] MEDS: Nystatin Cream 15 GM TUBE TOP SCH ×2 (08:27→21:30)
[2023-06-21] MEDS: Polyethylene Glycol 3350 17 GM Packet PO SCH (08:27)
[2023-06-21] MEDS: traMADol HCl 50 MG TAB PO PRN (21:29)
[2023-06-21] MEDS: LIDOCAINE Patch Removal TOP SCH (21:30)
[2023-06-22] MEDS: Nystatin Cream 15 GM TUBE TOP SCH ×2 (08:21→21:16)
[2023-06-22] MEDS: Gabapentin 100 MG CAP PO SCH ×3 (08:24→21:16)
[2023-06-22] MEDS: Rosuvastatin 10 MG TAB PO SCH (08:26)
[2023-06-22] MEDS: Losartan Potassium 50 MG TAB PO SCH (08:26)
[2023-06-22] MEDS: Ezetimibe 10 MG TAB PO SCH (08:27)
[2023-06-22] MEDS: Rivaroxaban 15 MG TAB PO SCH (08:27)
[2023-06-22] MEDS: Lidocaine 4% Patch TD SCH (08:28)
[2023-06-22] MEDS: Senokot 8.6 MG TAB PO SCH ×2 (08:29→21:16)
[2023-06-22] MEDS: Polyethylene Glycol 3350 17 GM Packet PO SCH (08:29)
[2023-06-22] MEDS ORDERED: cefTRIAXone (ROCEPHIN) 1 GM VIAL ONE (10:47)
[2023-06-22] MEDS ORDERED: cefTRIAXone (ROCEPHIN) 250 MG VIAL ONE (10:47)
[2023-06-22] MEDS: traMADol HCl 50 MG TAB PO PRN (21:15)
[2023-06-22] MEDS: LIDOCAINE Patch Removal TOP SCH (21:16)
[2023-06-23] MEDS: Gabapentin 100 MG CAP PO SCH ×3 (08:03→21:11)
[2023-06-23] MEDS: Rivaroxaban 15 MG TAB PO SCH (08:03)
[2023-06-23] MEDS: Ezetimibe 10 MG TAB PO SCH (08:04)
[2023-06-23] MEDS: Losartan Potassium 50 MG TAB PO SCH (08:05)
[2023-06-23] MEDS: Lidocaine 4% Patch TD SCH (08:05)
[2023-06-23] MEDS: Nystatin Cream 15 GM TUBE TOP SCH ×2 (08:05→21:11)
[2023-06-23] MEDS: Rosuvastatin 10 MG TAB PO SCH (08:06)
[2023-06-23] MEDS: Polyethylene Glycol 3350 17 GM Packet PO SCH (08:06)
[2023-06-23] MEDS: Senokot 8.6 MG TAB PO SCH ×2 (08:06→21:11)
[2023-06-23] MEDS ORDERED: Maxitrol 0.1% Opth 5 ML BOT ONE (20:42)
[2023-06-23] MEDS ORDERED: NEOMYCIN-POLYMYXIN-HC EAR SUSP 200 DROP/10 ML BOT ONE (20:42)
[2023-06-23] MEDS: NEOMYCIN-POLYMYXIN-HC EAR SUSP 200 DROP/10 ML BOT R EAR SCH (21:10)
[2023-06-23] MEDS: LIDOCAINE Patch Removal TOP SCH (21:12)
[2023-06-24] MEDS: Lidocaine 4% Patch TD SCH (09:02)
[2023-06-24] MEDS: Polyethylene Glycol 3350 17 GM Packet PO SCH (09:03)
[2023-06-24] MEDS: Nystatin Cream 15 GM TUBE TOP SCH ×3 (09:05→21:37)
[2023-06-24] MEDS: Senokot 8.6 MG TAB PO SCH ×2 (09:06→21:17)
[2023-06-24] MEDS: Rivaroxaban 15 MG TAB PO SCH (09:06)
[2023-06-24] MEDS: Losartan Potassium 50 MG TAB PO SCH (09:06)
[2023-06-24] MEDS: Ezetimibe 10 MG TAB PO SCH (09:06)
[2023-06-24] MEDS: Rosuvastatin 10 MG TAB PO SCH (09:06)
[2023-06-24] MEDS: NEOMYCIN-POLYMYXIN-HC EAR SUSP 200 DROP/10 ML BOT R EAR SCH ×2 (09:09→21:16)
[2023-06-24] MEDS: Gabapentin 100 MG CAP PO SCH ×3 (09:18→21:14)
[2023-06-24] MEDS: LIDOCAINE Patch Removal TOP SCH (21:17)
[2023-06-25] MEDS: Losartan Potassium 50 MG TAB PO SCH (08:45)
[2023-06-25] MEDS: Polyethylene Glycol 3350 17 GM Packet PO SCH (08:45)
[2023-06-25] MEDS: Lidocaine 4% Patch TD SCH (08:45)
[2023-06-25] MEDS: Ezetimibe 10 MG TAB PO SCH (08:45)
[2023-06-25] MEDS: Rivaroxaban 15 MG TAB PO SCH (08:45)
[2023-06-25] MEDS: Senokot 8.6 MG TAB PO SCH ×2 (08:46→20:27)
[2023-06-25] MEDS: Gabapentin 100 MG CAP PO SCH ×3 (08:46→20:27)
[2023-06-25] MEDS: NEOMYCIN-POLYMYXIN-HC EAR SUSP 200 DROP/10 ML BOT R EAR SCH ×2 (09:03→20:27)
[2023-06-25] MEDS: Nystatin Cream 15 GM TUBE TOP SCH ×2 (09:03→20:27)
[2023-06-25] MEDS: Rosuvastatin 10 MG TAB PO SCH (09:32)
[2023-06-25] MEDS: LIDOCAINE Patch Removal TOP SCH (20:27)
[2023-06-25] MEDS: Acetaminophen 325 MG TAB PO PRN (20:37)
[2023-06-26] MEDS: Acetaminophen 325 MG TAB PO PRN (02:41)
[2023-06-26] MEDS: Lidocaine 4% Patch TD SCH (08:15)
[2023-06-26] MEDS: Polyethylene Glycol 3350 17 GM Packet PO SCH (08:15)
[2023-06-26] MEDS: Losartan Potassium 50 MG TAB PO SCH (08:15)
[2023-06-26] MEDS: Rivaroxaban 15 MG TAB PO SCH (08:15)
[2023-06-26] MEDS: Rosuvastatin 10 MG TAB PO SCH (08:16)
[2023-06-26] MEDS: Gabapentin 100 MG CAP PO SCH ×3 (08:16→20:24)
[2023-06-26] MEDS: Senokot 8.6 MG TAB PO SCH ×2 (08:16→20:01)
[2023-06-26] MEDS: Ezetimibe 10 MG TAB PO SCH (08:16)
[2023-06-26] MEDS: NEOMYCIN-POLYMYXIN-HC EAR SUSP 200 DROP/10 ML BOT R EAR SCH ×2 (08:18→20:01)
[2023-06-26] MEDS: Nystatin Cream 15 GM TUBE TOP SCH ×2 (08:18→20:01)
[2023-06-26] MEDS: tiZANidine HCl 4 MG TAB PO PRN (20:00)
[2023-06-26] MEDS: traMADol HCl 50 MG TAB PO PRN (20:00)
[2023-06-26] MEDS: LIDOCAINE Patch Removal TOP SCH (20:01)
[2023-06-27] MEDS: Nystatin Cream 15 GM TUBE TOP SCH ×2 (08:20→21:33)
[2023-06-27] MEDS: NEOMYCIN-POLYMYXIN-HC EAR SUSP 200 DROP/10 ML BOT R EAR SCH ×2 (08:20→21:33)
[2023-06-27] MEDS: Lidocaine 4% Patch TD SCH (08:21)
[2023-06-27] MEDS: Gabapentin 100 MG CAP PO SCH ×3 (08:22→21:33)
[2023-06-27] MEDS: Rivaroxaban 15 MG TAB PO SCH (08:22)
[2023-06-27] MEDS: Ezetimibe 10 MG TAB PO SCH (08:23)
[2023-06-27] MEDS: Rosuvastatin 10 MG TAB PO SCH (08:23)
[2023-06-27] MEDS: Losartan Potassium 50 MG TAB PO SCH (08:24)
[2023-06-27] MEDS: Senokot 8.6 MG TAB PO SCH ×2 (08:35→21:33)
[2023-06-27] MEDS: Polyethylene Glycol 3350 17 GM Packet PO SCH (08:35)
[2023-06-27] MEDS: Acetaminophen 325 MG TAB PO PRN (12:09)
[2023-06-27] MEDS: LIDOCAINE Patch Removal TOP SCH (21:34)
[2023-06-28 05:16] LABS: Platelet Count 151 10x3/uL (130-400)
[2023-06-28] MEDS: Lidocaine 4% Patch TD SCH (08:05)
[2023-06-28] MEDS: Nystatin Cream 15 GM TUBE TOP SCH ×2 (08:05→20:26)
[2023-06-28] MEDS: NEOMYCIN-POLYMYXIN-HC EAR SUSP 200 DROP/10 ML BOT R EAR SCH ×2 (08:06→20:28)
[2023-06-28] MEDS: Polyethylene Glycol 3350 17 GM Packet PO SCH (08:07)
[2023-06-28] MEDS: Losartan Potassium 50 MG TAB PO SCH (08:08)
[2023-06-28] MEDS: Acetaminophen 325 MG TAB PO PRN ×2 (08:08→19:06)
[2023-06-28] MEDS: Rosuvastatin 10 MG TAB PO SCH (08:08)
[2023-06-28] MEDS: Senokot 8.6 MG TAB PO SCH ×2 (08:08→20:27)
[2023-06-28] MEDS: Ezetimibe 10 MG TAB PO SCH (08:08)
[2023-06-28] MEDS: Rivaroxaban 15 MG TAB PO SCH (08:08)
[2023-06-28] MEDS: Gabapentin 100 MG CAP PO SCH ×3 (08:09→20:27)
[2023-06-28] MEDS: traMADol HCl 50 MG TAB PO PRN (09:23)
[2023-06-28] MEDS: LIDOCAINE Patch Removal TOP SCH (20:27)
[2023-06-29] MEDS: traMADol HCl 50 MG TAB PO PRN (05:34)
[2023-06-29] MEDS: Senokot 8.6 MG TAB PO SCH ×2 (08:34→20:25)
[2023-06-29] MEDS: Gabapentin 100 MG CAP PO SCH ×3 (08:34→20:25)
[2023-06-29] MEDS: Rivaroxaban 15 MG TAB PO SCH (08:34)
[2023-06-29] MEDS: Rosuvastatin 10 MG TAB PO SCH (08:34)
[2023-06-29] MEDS: Losartan Potassium 50 MG TAB PO SCH (08:34)
[2023-06-29] MEDS: Ezetimibe 10 MG TAB PO SCH (08:34)
[2023-06-29] MEDS: Lidocaine 4% Patch TD SCH (08:35)
[2023-06-29] MEDS: Nystatin Cream 15 GM TUBE TOP SCH ×2 (08:35→20:26)
[2023-06-29] MEDS: Polyethylene Glycol 3350 17 GM Packet PO SCH (08:36)
[2023-06-29] MEDS: NEOMYCIN-POLYMYXIN-HC EAR SUSP 200 DROP/10 ML BOT R EAR SCH ×2 (08:41→20:25)
[2023-06-29] MEDS: LIDOCAINE Patch Removal TOP SCH (20:25)
[2023-06-30] MEDS: traMADol HCl 50 MG TAB PO PRN (02:26)
[2023-06-30] MEDS: Rivaroxaban 15 MG TAB PO SCH (08:40)
[2023-06-30] MEDS: Gabapentin 100 MG CAP PO SCH ×3 (08:40→20:52)
[2023-06-30] MEDS: Ezetimibe 10 MG TAB PO SCH (08:42)
[2023-06-30] MEDS: Senokot 8.6 MG TAB PO SCH ×2 (08:42→20:52)
[2023-06-30] MEDS: Losartan Potassium 50 MG TAB PO SCH (08:42)
[2023-06-30] MEDS: Polyethylene Glycol 3350 17 GM Packet PO SCH (08:42)
[2023-06-30] MEDS: Rosuvastatin 10 MG TAB PO SCH (08:42)
[2023-06-30] MEDS: Lidocaine 4% Patch TD SCH (08:42)
[2023-06-30] MEDS: NEOMYCIN-POLYMYXIN-HC EAR SUSP 200 DROP/10 ML BOT R EAR SCH (08:44)
[2023-06-30] MEDS: Nystatin Cream 15 GM TUBE TOP SCH ×2 (08:48→20:53)
[2023-06-30] MEDS: LIDOCAINE Patch Removal TOP SCH (20:53)
[2023-07-01] MEDS: Rivaroxaban 15 MG TAB PO SCH (08:45)
[2023-07-01] MEDS: Gabapentin 100 MG CAP PO SCH ×3 (08:45→21:34)
[2023-07-01] MEDS: Losartan Potassium 50 MG TAB PO SCH (08:45)
[2023-07-01] MEDS: Rosuvastatin 10 MG TAB PO SCH (08:45)
[2023-07-01] MEDS: Polyethylene Glycol 3350 17 GM Packet PO SCH (08:45)
[2023-07-01] MEDS: Nystatin Cream 15 GM TUBE TOP SCH ×2 (08:46→21:35)
[2023-07-01] MEDS: Lidocaine 4% Patch TD SCH (08:46)
[2023-07-01] MEDS: Senokot 8.6 MG TAB PO SCH ×2 (08:46→21:35)
[2023-07-01] MEDS: Ezetimibe 10 MG TAB PO SCH (08:46)
[2023-07-01] MEDS: traMADol HCl 50 MG TAB PO PRN ×2 (10:57→21:38)
[2023-07-01] MEDS: LIDOCAINE Patch Removal TOP SCH (21:35)
[2023-07-02] MEDS: Gabapentin 100 MG CAP PO SCH ×3 (08:23→20:29)
[2023-07-02] MEDS: Ezetimibe 10 MG TAB PO SCH (08:24)
[2023-07-02] MEDS: Nystatin Cream 15 GM TUBE TOP SCH ×2 (08:24→20:30)
[2023-07-02] MEDS: Losartan Potassium 50 MG TAB PO SCH (08:24)
[2023-07-02] MEDS: Senokot 8.6 MG TAB PO SCH ×2 (08:24→20:29)
[2023-07-02] MEDS: Rosuvastatin 10 MG TAB PO SCH (08:24)
[2023-07-02] MEDS: Lidocaine 4% Patch TD SCH (08:24)
[2023-07-02] MEDS: Rivaroxaban 15 MG TAB PO SCH (08:24)
[2023-07-02] MEDS: Polyethylene Glycol 3350 17 GM Packet PO SCH (08:26)
[2023-07-02 14:21] LABS: Bilirubin Negative (Negative); Blood, Urine Moderate (Negative); Glucose, Urine (Dipstick) Negative (Negative); Ketone, Urine Negative (Negative); Leukocyte Large (Negative); Nitrite Positive (Negative); Protein, Urine (Dipstick) 100 mg/dL (Neg-Trace)
[2023-07-02 14:23] LABS: Clarity Cloudy (Clear)
[2023-07-02 14:35] LABS: Bacteria/HPF 2+ HPF (None Seen); Squamous Epithelial 0-3 HPF (0-3); WBC/HPF Greater Than 50 HPF (0-3)
[2023-07-02] MEDS: Sulfameth/Trimethoprim DS 800-160mg TAB PO SCH (17:18)
[2023-07-02] MEDS: LIDOCAINE Patch Removal TOP SCH (20:30)
[2023-07-03] MEDS: Sulfameth/Trimethoprim DS 800-160mg TAB PO SCH ×3 (08:47→20:13)
[2023-07-03] MEDS: Polyethylene Glycol 3350 17 GM Packet PO SCH (08:47)
[2023-07-03] MEDS: Ezetimibe 10 MG TAB PO SCH (08:47)
[2023-07-03] MEDS: Losartan Potassium 50 MG TAB PO SCH (08:47)
[2023-07-03] MEDS: Gabapentin 100 MG CAP PO SCH ×3 (08:47→20:14)
[2023-07-03] MEDS: Lidocaine 4% Patch TD SCH (08:47)
[2023-07-03] MEDS: Rivaroxaban 15 MG TAB PO SCH (08:47)
[2023-07-03] MEDS: Rosuvastatin 10 MG TAB PO SCH (08:47)
[2023-07-03] MEDS: Senokot 8.6 MG TAB PO SCH ×2 (08:47→20:12)
[2023-07-03] MEDS: Nystatin Cream 15 GM TUBE TOP SCH ×2 (08:48→20:16)
[2023-07-03] MEDS: traMADol HCl 50 MG TAB PO PRN (14:44)
[2023-07-03] MEDS: LIDOCAINE Patch Removal TOP SCH (20:17)
[2023-07-03] MEDS: tiZANidine HCl 4 MG TAB PO PRN (20:24)
[2023-07-04] MEDS: traMADol HCl 50 MG TAB PO PRN (08:57)
[2023-07-04] MEDS: tiZANidine HCl 4 MG TAB PO PRN (08:57)
[2023-07-04] MEDS: Rivaroxaban 15 MG TAB PO SCH (08:59)
[2023-07-04] MEDS: Ezetimibe 10 MG TAB PO SCH (08:59)
[2023-07-04] MEDS: Rosuvastatin 10 MG TAB PO SCH (09:00)
[2023-07-04] MEDS: Nystatin Cream 15 GM TUBE TOP SCH ×2 (09:00→21:38)
[2023-07-04] MEDS: Losartan Potassium 50 MG TAB PO SCH (09:00)
[2023-07-04] MEDS: Senokot 8.6 MG TAB PO SCH ×2 (09:00→21:37)
[2023-07-04] MEDS: Polyethylene Glycol 3350 17 GM Packet PO SCH (09:00)
[2023-07-04] MEDS: Sulfameth/Trimethoprim DS 800-160mg TAB PO SCH ×2 (09:00→21:37)
[2023-07-04] MEDS: Lidocaine 4% Patch TD SCH (09:01)
[2023-07-04] MEDS: Gabapentin 100 MG CAP PO SCH ×3 (09:01→21:37)
[2023-07-04] MEDS: LIDOCAINE Patch Removal TOP SCH (23:05)
[2023-07-05 05:12] LABS: Hematocrit 36.4 % (36.0-47.0); Hemoglobin 11.8 g/dL (12.0-16.0); Platelet Count 133 10x3/uL (130-400)
[2023-07-05] MEDS: Lidocaine 4% Patch TD SCH (08:24)
[2023-07-05] MEDS: Gabapentin 100 MG CAP PO SCH ×3 (08:24→20:51)
[2023-07-05] MEDS: Polyethylene Glycol 3350 17 GM Packet PO SCH (08:24)
[2023-07-05] MEDS: Rivaroxaban 15 MG TAB PO SCH (08:25)
[2023-07-05] MEDS: Sulfameth/Trimethoprim DS 800-160mg TAB PO SCH (08:25)
[2023-07-05] MEDS: Ezetimibe 10 MG TAB PO SCH (08:25)
[2023-07-05] MEDS: Losartan Potassium 50 MG TAB PO SCH (08:25)
[2023-07-05] MEDS: Nystatin Cream 15 GM TUBE TOP SCH ×2 (08:26→20:51)
[2023-07-05] MEDS: Senokot 8.6 MG TAB PO SCH ×2 (08:28→20:51)
[2023-07-05] MEDS: Rosuvastatin 10 MG TAB PO SCH (08:31)
[2023-07-05] MEDS: Acetaminophen 325 MG TAB PO PRN (15:12)
[2023-07-05] MEDS: LIDOCAINE Patch Removal TOP SCH (20:51)
[2023-07-06] MEDS: traMADol HCl 50 MG TAB PO PRN (01:07)
[2023-07-06] MEDS: tiZANidine HCl 4 MG TAB PO PRN ×2 (01:07→08:53)
[2023-07-06] MEDS: Lidocaine 4% Patch TD SCH (08:39)
[2023-07-06] MEDS: Ezetimibe 10 MG TAB PO SCH (08:41)
[2023-07-06] MEDS: Gabapentin 100 MG CAP PO SCH ×3 (08:41→19:57)
[2023-07-06] MEDS: Senokot 8.6 MG TAB PO SCH ×2 (08:42→19:57)
[2023-07-06] MEDS: Apixaban 2.5 MG TAB PO SCH ×2 (08:42→19:57)
[2023-07-06] MEDS: Rosuvastatin 10 MG TAB PO SCH (08:42)
[2023-07-06] MEDS: Losartan Potassium 50 MG TAB PO SCH (08:42)
[2023-07-06] MEDS: Nystatin Cream 15 GM TUBE TOP SCH ×2 (08:42→19:58)
[2023-07-06] MEDS: Polyethylene Glycol 3350 17 GM Packet PO SCH (08:43)
[2023-07-06] MEDS: Acetaminophen 325 MG TAB PO PRN (08:53)
[2023-07-06 16:08] VITALS: BMI 25.2
[2023-07-06] MEDS: LIDOCAINE Patch Removal TOP SCH (19:58)
[2023-07-07] MEDS: Acetaminophen 325 MG TAB PO PRN (07:28)
[2023-07-07] MEDS: tiZANidine HCl 4 MG TAB PO PRN (07:28)
[2023-07-07] MEDS: Gabapentin 100 MG CAP PO SCH ×3 (09:00→20:44)
[2023-07-07] MEDS: Losartan Potassium 50 MG TAB PO SCH (09:00)
[2023-07-07] MEDS ORDERED: Sodium Chloride 0.9% 500 ML IV SCH (10:00)
[2023-07-07] MEDS ORDERED: Sodium Chloride 0.9% 1,000 ML IV SCH (10:45)
[2023-07-07 10:49] LABS: Hematocrit 32.2 % (36.0-47.0); Hemoglobin 10.2 g/dL (12.0-16.0); Mean Corpuscular HGB CONC 31.5 g/dL (32.0-36.0); Mean Corpuscular Hemoglobin 31.5 pg (27.0-31.0); Mean Corpuscular Volume 99.8 fl (78.0-98.0); Mean Platelet Volume 8.2 fL (7.4-10.4); Platelet Count 101 10x3/uL (130-400); RBC Distribution Width 16.3 % (11.5-14.5); Red Blood Cell (RBC) Count 3.23 mill/uL (4.20-5.40); White Blood Cell (WBC) Count 2.8 10x3/uL (4.8-10.8)
[2023-07-07 11:01] LABS: Band 2 % (5-11); Lymphocytes 22 % (21-51); MDiff Complete? YES; Manual Diff?? YES; Neutrophil 66 % (42-75)
[2023-07-07 11:02] LABS: Eosinophils 4 % (0-10); Monocytes 6 % (0-10); Platelet Adequacy Comment Appears Decreased
[2023-07-07 11:03] LABS: Anisocytosis SLIGHT = 6-15 cells (100X) (0-5/hpf)
[2023-07-07] MEDS: Ezetimibe 10 MG TAB PO SCH (11:09)
[2023-07-07] MEDS: Senokot 8.6 MG TAB PO SCH ×2 (11:09→20:44)
[2023-07-07] MEDS: Apixaban 2.5 MG TAB PO SCH ×2 (11:09→20:44)
[2023-07-07] MEDS: Lidocaine 4% Patch TD SCH ×2 (11:09)
[2023-07-07] MEDS: Rosuvastatin 10 MG TAB PO SCH (11:10)
[2023-07-07] MEDS: Polyethylene Glycol 3350 17 GM Packet PO SCH (11:10)
[2023-07-07 11:11] LABS: ALT (SGPT) 7 U/L (8-55); AST (SGOT) 14 U/L (5-34); Albumin 2.6 g/dL (3.4-4.8); Alkaline Phosphatase 85 U/L (40-110); Anion Gap 10 mmol/L (10-20); BUN (Urea Nitrogen) 14 mg/dL (9.8-20.1); Bilirubin, Total 0.4 mg/dL (0.2-1.2); Calc. Creatinine Clearance 36 mL/min (70-130); Calcium 7.9 mg/dL (7.8-10.44); Carbon Dioxide 24 mmol/L (23-31); Chloride 108 mmol/L (98-107); Estimated GFR 56; Globulin 1.7 g/dL (2.4-3.5); Glucose 110 mg/dL (83-110); Potassium 4.2 mmol/L (3.5-5.1); Protein, Total 4.3 g/dL (5.8-8.1); Sodium 138 mmol/L (136-145)
[2023-07-07] MEDS: Nystatin Cream 15 GM TUBE TOP SCH ×2 (11:11→20:45)
[2023-07-07] MEDS: LIDOCAINE Patch Removal TOP SCH (20:45)
[2023-07-08] MEDS: Apixaban 2.5 MG TAB PO SCH ×2 (08:40→20:32)
[2023-07-08] MEDS: Losartan Potassium 50 MG TAB PO SCH (08:40)
[2023-07-08] MEDS: Gabapentin 100 MG CAP PO SCH ×3 (08:40→20:32)
[2023-07-08] MEDS: Senokot 8.6 MG TAB PO SCH ×2 (08:40→20:31)
[2023-07-08] MEDS: Rosuvastatin 10 MG TAB PO SCH (08:40)
[2023-07-08] MEDS: Nystatin Cream 15 GM TUBE TOP SCH ×2 (08:41→20:34)
[2023-07-08] MEDS: Ezetimibe 10 MG TAB PO SCH (08:41)
[2023-07-08] MEDS: Lidocaine 4% Patch TD SCH ×2 (08:41)
[2023-07-08] MEDS: Polyethylene Glycol 3350 17 GM Packet PO SCH (08:41)
[2023-07-08] MEDS: traMADol HCl 50 MG TAB PO PRN (16:10)
[2023-07-08] MEDS: tiZANidine HCl 4 MG TAB PO SCH (20:31)
[2023-07-08] MEDS: LIDOCAINE Patch Removal TOP SCH (20:34)
[2023-07-09] MEDS: HYDROcodone/Acetaminophen 5/325 mg Tablet PO PRN ×2 (00:04→12:44)
[2023-07-09] MEDS: Polyethylene Glycol 3350 17 GM Packet PO SCH (09:23)
[2023-07-09] MEDS: Lidocaine 4% Patch TD SCH ×2 (09:23)
[2023-07-09] MEDS: Losartan Potassium 50 MG TAB PO SCH (09:24)
[2023-07-09] MEDS: traMADol HCl 50 MG TAB PO SCH ×2 (09:24→21:06)
[2023-07-09] MEDS: Gabapentin 100 MG CAP PO SCH ×3 (09:24→21:05)
[2023-07-09] MEDS: Ezetimibe 10 MG TAB PO SCH (09:26)
[2023-07-09] MEDS: Senokot 8.6 MG TAB PO SCH ×2 (09:26→21:06)
[2023-07-09] MEDS: tiZANidine HCl 4 MG TAB PO SCH ×2 (09:26→21:05)
[2023-07-09] MEDS: Nystatin Cream 15 GM TUBE TOP SCH ×2 (09:28→21:13)
[2023-07-09] MEDS: Apixaban 2.5 MG TAB PO SCH ×2 (09:28→21:06)
[2023-07-09] MEDS: Rosuvastatin 10 MG TAB PO SCH (09:31)
[2023-07-09] MEDS: LIDOCAINE Patch Removal TOP SCH (21:13)
[2023-07-10 05:52] LABS: Hematocrit 33.8 % (36.0-47.0); Hemoglobin 10.7 g/dL (12.0-16.0); Platelet Count 134 10x3/uL (130-400)
[2023-07-10] MEDS: Polyethylene Glycol 3350 17 GM Packet PO SCH (08:51)
[2023-07-10] MEDS: traMADol HCl 50 MG TAB PO SCH ×2 (08:51→20:19)
[2023-07-10] MEDS: Lidocaine 4% Patch TD SCH ×2 (08:51)
[2023-07-10] MEDS: Gabapentin 100 MG CAP PO SCH ×3 (08:52→20:21)
[2023-07-10] MEDS: Ezetimibe 10 MG TAB PO SCH (08:52)
[2023-07-10] MEDS: tiZANidine HCl 4 MG TAB PO SCH ×2 (08:52→20:21)
[2023-07-10] MEDS: Senokot 8.6 MG TAB PO SCH ×2 (08:52→20:22)
[2023-07-10] MEDS: Losartan Potassium 50 MG TAB PO SCH (08:52)
[2023-07-10] MEDS: Apixaban 2.5 MG TAB PO SCH ×2 (08:53→20:21)
[2023-07-10] MEDS: Rosuvastatin 10 MG TAB PO SCH (08:53)
[2023-07-10] MEDS: Nystatin Cream 15 GM TUBE TOP SCH ×2 (08:53→20:22)
[2023-07-10] MEDS: HYDROcodone/Acetaminophen 5/325 mg Tablet PO PRN (14:04)
[2023-07-10] MEDS: LIDOCAINE Patch Removal TOP SCH (20:22)
[2023-07-11 08:12] VITALS: BP 110/63; TEMP 98
[2023-07-11] MEDS: traMADol HCl 50 MG TAB PO SCH (08:33)
[2023-07-11] MEDS: Polyethylene Glycol 3350 17 GM Packet PO SCH (08:33)
[2023-07-11] MEDS: Rosuvastatin 10 MG TAB PO SCH (08:36)
[2023-07-11] MEDS: Gabapentin 100 MG CAP PO SCH ×2 (08:36→15:57)
[2023-07-11] MEDS: Ezetimibe 10 MG TAB PO SCH (08:37)
[2023-07-11] MEDS: Senokot 8.6 MG TAB PO SCH (08:37)
[2023-07-11] MEDS: Apixaban 2.5 MG TAB PO SCH (08:37)
[2023-07-11] MEDS: tiZANidine HCl 4 MG TAB PO SCH (08:37)
[2023-07-11] MEDS: Lidocaine 4% Patch TD SCH ×2 (08:40)
[2023-07-11] MEDS: Nystatin Cream 15 GM TUBE TOP SCH (08:41)
[2023-07-11] MEDS: Losartan Potassium 50 MG TAB PO SCH (08:46)
== END 2023-07-11 17:00 | disposition home health service (06) | DRG 948 ==
LOC: MADMS 15:40
PROVIDERS: ADMIT Emergency Medicine; ATTEND Family Medicine
DX: R53.81 Other malaise (principal); K56.600 Partial intestinal obstruction, unspecified as to cause; N39.0 Urinary tract infection, site not specified; S29.011D Strain of muscle and tendon of front wall of thorax, subsequent encounter; I10 Essential (primary) hypertension; Z66 Do not resuscitate; D64.9 Anemia, unspecified; R13.10 Dysphagia, unspecified; H60.501 Unspecified acute noninfective otitis externa, right ear; M81.0 Age-related osteoporosis without current pathological fracture; B96.20 Unspecified Escherichia coli [E. coli] as the cause of diseases classified elsewhere; B95.2 Enterococcus as the cause of diseases classified elsewhere; I44.0 Atrioventricular block, first degree; R55 Syncope and collapse; I95.9 Hypotension, unspecified; R07.81 Pleurodynia; Z96.649 Presence of unspecified artificial hip joint; Z88.8 Allergy status to other drugs, medicaments and biological substances; Z79.899 Other long term (current) drug therapy; Z90.49 Acquired absence of other specified parts of digestive tract; Z90.89 Acquired absence of other organs; Z98.890 Other specified postprocedural states; Z86.73 Personal history of transient ischemic attack (TIA), and cerebral infarction without residual deficits; Z86.711 Personal history of pulmonary embolism; Z86.718 Personal history of other venous thrombosis and embolism; I25.10 Atherosclerotic heart disease of native coronary artery without angina pectoris; Z95.5 Presence of coronary angioplasty implant and graft; Z79.01 Long term (current) use of anticoagulants; R00.1 Bradycardia, unspecified
CPT/HCPCS: 36415; 36416; 71045; 80053; 81001; 82565; 85014; 85018; 85025; 85049; 87077; 87086; 87186; J0696; J7030; J7050; Q0162

== ENCOUNTER 2023-08-10 05:21 | Inpatient (IN) | payer OTHER, MEDICARE ==
[2023-08-10] MEDS ORDERED: Ondansetron PF 4 MG/2 ML Vial ONE (05:51)
[2023-08-10] MEDS ORDERED: Morphine 2 MG/ML VIAL ONE ×3 (05:51→13:50)
[2023-08-10 07:24] LABS: #Eosinphils 0.1 thou/uL (0.0-0.7); #Lymphocytes 1.8 thou/uL (1.20-3.40); #Monocytes 0.2 thou/uL (0.11-0.59); #Neutrophils 1.7 thou/uL (1.40-6.50); %Basophils 0.8 % (0.0-1.0); %Eosinophils 2.9 % (0.0-10.0); %Lymphocytes 47.9 % (21.0-51.0); %Monocytes 4.8 % (0.0-10.0); %Neutrophils 43.6 % (42.0-75.0); Hemoglobin 13.6 g/dL (12.0-16.0); Mean Corpuscular HGB CONC 32.3 g/dL (32.0-36.0); Mean Corpuscular Hemoglobin 33.1 pg (27.0-31.0); Mean Corpuscular Volume 102.4 fl (78.0-98.0); Mean Platelet Volume 7.8 fL (7.4-10.4); Platelet Count 132 10x3/uL (130-400); RBC Distribution Width 15.3 % (11.5-14.5); White Blood Cell (WBC) Count 3.8 10x3/uL (4.8-10.8)
[2023-08-10 07:44] LABS: ALT (SGPT) 12 U/L (8-55); AST (SGOT) 16 U/L (5-34); Albumin 3.5 g/dL (3.4-4.8); Alkaline Phosphatase 93 U/L (40-110); Anion Gap 15 mmol/L (10-20); BUN (Urea Nitrogen) 13 mg/dL (9.8-20.1); Bilirubin, Total 0.6 mg/dL (0.2-1.2); Calc. Creatinine Clearance 0 mL/min (70-130); Calcium 9.1 mg/dL (7.8-10.44); Carbon Dioxide 25 mmol/L (23-31); Chloride 105 mmol/L (98-107); Estimated GFR 71; Globulin 2.4 g/dL (2.4-3.5); Glucose 121 mg/dL (83-110); Potassium 3.4 mmol/L (3.5-5.1); Protein, Total 5.9 g/dL (5.8-8.1); Sodium 142 mmol/L (136-145)
[2023-08-10] MEDS ORDERED: Lorazepam 1 MG TAB PO PRN (11:39)
[2023-08-10] MEDS ORDERED: Nitroglycerin 0.4 MG TAB (25 Tab Bottle) SL PRN (11:39)
[2023-08-10] MEDS ORDERED: HYDROcodone/Acetaminophen 5/325 mg Tablet PO PRN (11:39)
[2023-08-10] MEDS ORDERED: Promethazine 25 MG TAB PO PRN (11:39)
[2023-08-10] MEDS ORDERED: Bisacodyl 10 MG SUPP PR PRN (11:39)
[2023-08-10 11:44] VITALS: BMI 25.7
[2023-08-10] MEDS ORDERED: Morphine 2 MG/ML VIAL SLOW IVP PRN (11:50)
[2023-08-10] MEDS ORDERED: Isosorbide Mononitrate 30 MG ER.TAB PO SCH (12:45)
[2023-08-10] MEDS ORDERED: Losartan 25 MG TAB PO SCH (12:45)
[2023-08-10] MEDS ORDERED: Morphine 4 MG/ML VIAL ONE (12:56)
[2023-08-10] MEDS: Ondansetron ODT 4 MG TAB PO PRN ×2 (15:04→20:21)
[2023-08-10] MEDS: Gabapentin 100 MG CAP PO SCH ×2 (15:05→20:21)
[2023-08-10] MEDS ORDERED: Morphine 4 MG/ML VIAL SLOW IVP PRN (15:32)
[2023-08-10] MEDS: tiZANidine HCl 4 MG TAB PO SCH (20:22)
[2023-08-10] MEDS: Senokot S 8.6-50 MG TAB PO SCH (20:22)
[2023-08-11] MEDS: traMADol HCl 50 MG TAB PO PRN ×2 (05:59→21:21)
[2023-08-11] MEDS: Gabapentin 100 MG CAP PO SCH ×3 (08:06→21:22)
[2023-08-11] MEDS: tiZANidine HCl 4 MG TAB PO SCH ×2 (08:08→21:21)
[2023-08-11] MEDS: Ezetimibe 10 MG TAB PO SCH (08:08)
[2023-08-11] MEDS: Loratadine 10 MG TAB PO SCH (08:08)
[2023-08-11] MEDS: Losartan 25 MG TAB PO SCH (08:08)
[2023-08-11] MEDS: Rosuvastatin 10 MG TAB PO SCH (08:08)
[2023-08-11] MEDS: Isosorbide Mononitrate 30 MG ER.TAB PO SCH (08:14)
[2023-08-11] MEDS: Polyethylene Glycol 3350 17 GM Packet PO PRN (08:14)
[2023-08-11] MEDS: Senokot S 8.6-50 MG TAB PO SCH ×2 (08:14→21:21)
[2023-08-11] MEDS ORDERED: Morphine 2 MG/ML VIAL SLOW IVP PRN (09:49)
[2023-08-12] MEDS: Acetaminophen 325 MG TAB PO PRN ×2 (05:15→16:32)
[2023-08-12] MEDS: Loratadine 10 MG TAB PO SCH (09:04)
[2023-08-12] MEDS: Isosorbide Mononitrate 30 MG ER.TAB PO SCH (09:04)
[2023-08-12] MEDS: Ezetimibe 10 MG TAB PO SCH (09:04)
[2023-08-12] MEDS: Losartan 25 MG TAB PO SCH (09:04)
[2023-08-12] MEDS: tiZANidine HCl 4 MG TAB PO SCH ×2 (09:04→20:12)
[2023-08-12] MEDS: Rivaroxaban 10 MG TAB PO SCH (09:04)
[2023-08-12] MEDS: Senokot S 8.6-50 MG TAB PO SCH ×2 (09:05→20:12)
[2023-08-12] MEDS: Gabapentin 100 MG CAP PO SCH ×3 (09:08→20:13)
[2023-08-12] MEDS: Rosuvastatin 10 MG TAB PO SCH (09:08)
[2023-08-12] MEDS: Polyethylene Glycol 3350 17 GM Packet PO PRN (09:12)
[2023-08-12] MEDS: Amoxicillin/Potassium Clav 875 MG TAB PO SCH (20:12)
[2023-08-13] MEDS: Loratadine 10 MG TAB PO SCH (08:27)
[2023-08-13] MEDS: tiZANidine HCl 4 MG TAB PO SCH (08:27)
[2023-08-13] MEDS: Gabapentin 100 MG CAP PO SCH (08:27)
[2023-08-13] MEDS: Senokot S 8.6-50 MG TAB PO SCH (08:27)
[2023-08-13] MEDS: Rosuvastatin 10 MG TAB PO SCH (08:27)
[2023-08-13] MEDS: Polyethylene Glycol 3350 17 GM Packet PO PRN (08:27)
[2023-08-13] MEDS: Rivaroxaban 10 MG TAB PO SCH (08:27)
[2023-08-13] MEDS: Ezetimibe 10 MG TAB PO SCH (08:27)
[2023-08-13 08:31] VITALS: BP 110/63; TEMP 97.6
[2023-08-13] MEDS: Acetaminophen 325 MG TAB PO PRN (08:31)
[2023-08-13] MEDS: Amoxicillin/Potassium Clav 875 MG TAB PO SCH ×2 (08:33→08:44)
== END 2023-08-13 09:47 | disposition swing bed (61) | DRG 563 ==
LOC: MADERS 05:21 → MADMS 09:22 → OBSVTOIN 09:22
PROVIDERS: ADMIT Family Medicine; ATTEND Emergency Medicine
DX: S42.292A Other displaced fracture of upper end of left humerus, initial encounter for closed fracture (principal); C18.9 Malignant neoplasm of colon, unspecified; I25.10 Atherosclerotic heart disease of native coronary artery without angina pectoris; I10 Essential (primary) hypertension; W19.XXXA Unspecified fall, initial encounter; Z96.649 Presence of unspecified artificial hip joint; H66.002 Acute suppurative otitis media without spontaneous rupture of ear drum, left ear; R53.81 Other malaise; E78.5 Hyperlipidemia, unspecified; Z66 Do not resuscitate; M81.0 Age-related osteoporosis without current pathological fracture; Z79.899 Other long term (current) drug therapy; Z88.8 Allergy status to other drugs, medicaments and biological substances; Z95.5 Presence of coronary angioplasty implant and graft; Z90.89 Acquired absence of other organs; Z90.49 Acquired absence of other specified parts of digestive tract; Z98.890 Other specified postprocedural states; Z86.73 Personal history of transient ischemic attack (TIA), and cerebral infarction without residual deficits; Z86.718 Personal history of other venous thrombosis and embolism; Z79.01 Long term (current) use of anticoagulants
CPT/HCPCS: 80053; 85025; 96374; 96375; 96376; G0390; J1650; J2270; J2272; J2405; Q0162

== ENCOUNTER 2023-08-12 08:02 | Inpatient (IN) | payer MEDICARE, OTHER ==
[2023-08-13] MEDS ORDERED: traMADol HCl 50 MG TAB PO PRN (08:49)
[2023-08-13] MEDS ORDERED: HYDROcodone/Acetaminophen 5/325 mg Tablet PO PRN (08:49)
[2023-08-13] MEDS ORDERED: Non-Formulary Item 1 EACH (Ondansetron Hcl [Zofran] 4 MG Tab) PO PRN (08:49)
[2023-08-13] MEDS ORDERED: Polyethylene Glycol 3350 17 GM Packet PO PRN (08:49)
[2023-08-13] MEDS ORDERED: Nitroglycerin 0.4 MG TAB (25 Tab Bottle) SL PRN (08:49)
[2023-08-13] MEDS ORDERED: Bisacodyl 10 MG SUPP PR PRN (08:49)
[2023-08-13] MEDS ORDERED: Mag-Al Plus 1200 MG/1200 MG/120 MG/30 ML UDCUP PO PRN (10:54)
[2023-08-13] MEDS ORDERED: Ondansetron ODT 4 MG TAB PO PRN (10:57)
[2023-08-13] MEDS: Amoxicillin/Potassium Clav 875 MG TAB PO SCH ×2 (11:12→20:40)
[2023-08-13] MEDS: Ezetimibe 10 MG TAB PO SCH (11:12)
[2023-08-13] MEDS: Gabapentin 100 MG CAP PO SCH ×3 (11:12→20:40)
[2023-08-13] MEDS: Senokot S 8.6-50 MG TAB PO SCH ×2 (11:13→20:40)
[2023-08-13] MEDS: Rivaroxaban 10 MG TAB PO SCH (11:13)
[2023-08-13] MEDS: Loratadine 10 MG TAB PO SCH (11:13)
[2023-08-13] MEDS: Rosuvastatin 10 MG TAB PO SCH (11:13)
[2023-08-13] MEDS: Isosorbide Mononitrate 30 MG ER.TAB PO SCH (11:46)
[2023-08-13] MEDS: HYDROcodone/Acetaminophen 5/325 mg Tablet PO PRN ×2 (15:24→20:40)
[2023-08-13] MEDS ORDERED: Mineral Oil ENEMA PR SCH (16:00)
[2023-08-13] MEDS ORDERED: Fleet Saline Enema 133 ML BOT FS SCH (16:15)
[2023-08-14] MEDS: Lorazepam 1 MG TAB PO PRN (01:58)
[2023-08-14] MEDS: Senokot S 8.6-50 MG TAB PO SCH ×2 (09:17→20:39)
[2023-08-14] MEDS: HYDROcodone/Acetaminophen 5/325 mg Tablet PO PRN ×2 (09:17→16:31)
[2023-08-14] MEDS: Isosorbide Mononitrate 30 MG ER.TAB PO SCH (09:18)
[2023-08-14] MEDS: Rosuvastatin 10 MG TAB PO SCH (09:18)
[2023-08-14] MEDS: Gabapentin 100 MG CAP PO SCH ×3 (09:18→20:40)
[2023-08-14] MEDS: Rivaroxaban 10 MG TAB PO SCH (09:18)
[2023-08-14] MEDS: Loratadine 10 MG TAB PO SCH (09:19)
[2023-08-14] MEDS: Amoxicillin/Potassium Clav 875 MG TAB PO SCH ×2 (09:19→20:40)
[2023-08-14] MEDS: Ezetimibe 10 MG TAB PO SCH (09:19)
[2023-08-14] MEDS ORDERED: tiZANidine HCl 4 MG TAB PO PRN (10:41)
[2023-08-14] MEDS ORDERED: Polyethylene Glycol 3350 17 GM Packet PO SCH (10:45)
[2023-08-14] MEDS: Acetaminophen 325 MG TAB PO PRN (11:00)
[2023-08-14] MEDS ORDERED: Magnesium Citrate 300 ML BOT PO SCH (17:45)
[2023-08-14] MEDS: Polyethylene Glycol 3350 17 GM Packet PO SCH (20:40)
[2023-08-15] MEDS ORDERED: Bisacodyl 10 MG SUPP PR PRN (00:01)
[2023-08-15] MEDS: HYDROcodone/Acetaminophen 5/325 mg Tablet PO PRN ×3 (05:45→14:58)
[2023-08-15] MEDS: Rivaroxaban 10 MG TAB PO SCH (08:37)
[2023-08-15] MEDS: Rosuvastatin 10 MG TAB PO SCH (08:37)
[2023-08-15] MEDS: Isosorbide Mononitrate 30 MG ER.TAB PO SCH (08:37)
[2023-08-15] MEDS: Loratadine 10 MG TAB PO SCH (08:37)
[2023-08-15] MEDS: Ezetimibe 10 MG TAB PO SCH (08:37)
[2023-08-15] MEDS: Gabapentin 100 MG CAP PO SCH ×3 (08:38→20:13)
[2023-08-15] MEDS: Polyethylene Glycol 3350 17 GM Packet PO SCH (08:38)
[2023-08-15] MEDS: Amoxicillin/Potassium Clav 875 MG TAB PO SCH ×2 (08:38→20:13)
[2023-08-15] MEDS: Senokot S 8.6-50 MG TAB PO SCH ×2 (08:38→20:13)
[2023-08-15] MEDS: Acetaminophen 325 MG TAB PO PRN (08:41)
[2023-08-15] MEDS: Diclofenac 1% 100 GM Topical GEL TP SCH ×2 (14:57→20:14)
[2023-08-15] MEDS ORDERED: Lantiseptic Ointment 130 GM JAR TOP PRN (17:16)
[2023-08-15] MEDS: HYDROcodone/Acetaminophen 5/325 mg Tablet PO SCH (17:31)
[2023-08-16] MEDS: HYDROcodone/Acetaminophen 5/325 mg Tablet PO SCH ×3 (05:00→17:06)
[2023-08-16] MEDS: Rosuvastatin 10 MG TAB PO SCH (09:03)
[2023-08-16] MEDS: Amoxicillin/Potassium Clav 875 MG TAB PO SCH ×2 (09:03→21:26)
[2023-08-16] MEDS: Rivaroxaban 10 MG TAB PO SCH (09:03)
[2023-08-16] MEDS: Isosorbide Mononitrate 30 MG ER.TAB PO SCH (09:03)
[2023-08-16] MEDS: Ezetimibe 10 MG TAB PO SCH (09:03)
[2023-08-16] MEDS: Loratadine 10 MG TAB PO SCH (09:04)
[2023-08-16] MEDS: Gabapentin 100 MG CAP PO SCH ×3 (09:04→21:26)
[2023-08-16] MEDS: Diclofenac 1% 100 GM Topical GEL TP SCH ×4 (09:04→21:18)
[2023-08-16] MEDS: Senokot S 8.6-50 MG TAB PO SCH ×2 (09:04→21:26)
[2023-08-16] MEDS: Lorazepam 1 MG TAB PO PRN (13:56)
[2023-08-16] MEDS: HYDROcodone/Acetaminophen 5/325 mg Tablet PO PRN (21:21)
[2023-08-17] MEDS: HYDROcodone/Acetaminophen 5/325 mg Tablet PO PRN ×3 (03:23→20:25)
[2023-08-17] MEDS: HYDROcodone/Acetaminophen 5/325 mg Tablet PO SCH ×3 (06:16→17:49)
[2023-08-17] MEDS: Rosuvastatin 10 MG TAB PO SCH (09:36)
[2023-08-17] MEDS: Rivaroxaban 10 MG TAB PO SCH (09:37)
[2023-08-17] MEDS: Gabapentin 100 MG CAP PO SCH ×3 (09:37→20:22)
[2023-08-17] MEDS: Isosorbide Mononitrate 30 MG ER.TAB PO SCH (09:37)
[2023-08-17] MEDS: Senokot S 8.6-50 MG TAB PO SCH ×2 (09:37→20:22)
[2023-08-17] MEDS: Amoxicillin/Potassium Clav 875 MG TAB PO SCH ×2 (09:37→20:22)
[2023-08-17] MEDS: Ezetimibe 10 MG TAB PO SCH (09:37)
[2023-08-17] MEDS: Loratadine 10 MG TAB PO SCH (09:37)
[2023-08-17] MEDS: Diclofenac 1% 100 GM Topical GEL TP SCH ×4 (09:38→20:22)
[2023-08-18] MEDS: HYDROcodone/Acetaminophen 5/325 mg Tablet PO PRN ×2 (02:22→20:14)
[2023-08-18 05:13] LABS: Hematocrit 33.6 % (36.0-47.0); Hemoglobin 10.5 g/dL (12.0-16.0); Platelet Count 211 10x3/uL (130-400)
[2023-08-18] MEDS: HYDROcodone/Acetaminophen 5/325 mg Tablet PO SCH ×3 (05:45→17:35)
[2023-08-18] MEDS: Loratadine 10 MG TAB PO SCH (08:38)
[2023-08-18] MEDS: Amoxicillin/Potassium Clav 875 MG TAB PO SCH ×2 (08:38→20:14)
[2023-08-18] MEDS: Rosuvastatin 10 MG TAB PO SCH (08:38)
[2023-08-18] MEDS: Rivaroxaban 10 MG TAB PO SCH (08:38)
[2023-08-18] MEDS: Isosorbide Mononitrate 30 MG ER.TAB PO SCH (08:38)
[2023-08-18] MEDS: Ezetimibe 10 MG TAB PO SCH (08:38)
[2023-08-18] MEDS: Senokot S 8.6-50 MG TAB PO SCH ×2 (08:38→20:14)
[2023-08-18] MEDS: Gabapentin 100 MG CAP PO SCH ×3 (08:38→20:14)
[2023-08-18] MEDS: Diclofenac 1% 100 GM Topical GEL TP SCH ×4 (08:39→20:14)
[2023-08-18] MEDS: Polyethylene Glycol 3350 17 GM Packet PO SCH (08:39)
[2023-08-18 13:42] VITALS: BMI 25.9
[2023-08-19] MEDS: HYDROcodone/Acetaminophen 5/325 mg Tablet PO SCH ×3 (05:47→17:48)
[2023-08-19] MEDS: Polyethylene Glycol 3350 17 GM Packet PO SCH (08:40)
[2023-08-19] MEDS: HYDROcodone/Acetaminophen 5/325 mg Tablet PO PRN ×2 (08:40→14:45)
[2023-08-19] MEDS: Loratadine 10 MG TAB PO SCH (08:40)
[2023-08-19] MEDS: Isosorbide Mononitrate 30 MG ER.TAB PO SCH (08:41)
[2023-08-19] MEDS: Gabapentin 100 MG CAP PO SCH ×3 (08:41→20:35)
[2023-08-19] MEDS: Amoxicillin/Potassium Clav 875 MG TAB PO SCH ×2 (08:41→20:36)
[2023-08-19] MEDS: Ezetimibe 10 MG TAB PO SCH (08:41)
[2023-08-19] MEDS: Rosuvastatin 10 MG TAB PO SCH (08:41)
[2023-08-19] MEDS: Rivaroxaban 10 MG TAB PO SCH (08:41)
[2023-08-19] MEDS: Diclofenac 1% 100 GM Topical GEL TP SCH ×4 (08:41→20:36)
[2023-08-19] MEDS: Senokot S 8.6-50 MG TAB PO SCH ×2 (08:41→20:36)
[2023-08-20] MEDS: HYDROcodone/Acetaminophen 5/325 mg Tablet PO SCH ×3 (05:39→17:44)
[2023-08-20] MEDS: Gabapentin 100 MG CAP PO SCH ×3 (09:00→20:38)
[2023-08-20] MEDS: Ezetimibe 10 MG TAB PO SCH (09:00)
[2023-08-20] MEDS: Rivaroxaban 10 MG TAB PO SCH (09:00)
[2023-08-20] MEDS: Rosuvastatin 10 MG TAB PO SCH (09:00)
[2023-08-20] MEDS: Loratadine 10 MG TAB PO SCH (09:00)
[2023-08-20] MEDS: Senokot S 8.6-50 MG TAB PO SCH ×2 (09:00→20:38)
[2023-08-20] MEDS: Isosorbide Mononitrate 30 MG ER.TAB PO SCH (09:00)
[2023-08-20] MEDS: Diclofenac 1% 100 GM Topical GEL TP SCH ×4 (09:01→20:38)
[2023-08-20] MEDS: Polyethylene Glycol 3350 17 GM Packet PO SCH (09:01)
[2023-08-21] MEDS: HYDROcodone/Acetaminophen 5/325 mg Tablet PO SCH ×3 (05:03→17:18)
[2023-08-21 05:18] LABS: Hematocrit 36.8 % (36.0-47.0); Hemoglobin 11.6 g/dL (12.0-16.0); Platelet Count 275 10x3/uL (130-400)
[2023-08-21] MEDS: tiZANidine HCl 4 MG TAB PO PRN ×2 (06:25→20:34)
[2023-08-21] MEDS: Gabapentin 100 MG CAP PO SCH ×3 (09:12→20:30)
[2023-08-21] MEDS: Loratadine 10 MG TAB PO SCH (09:12)
[2023-08-21] MEDS: Diclofenac 1% 100 GM Topical GEL TP SCH ×4 (09:12→20:29)
[2023-08-21] MEDS: Senokot S 8.6-50 MG TAB PO SCH ×2 (09:13→20:30)
[2023-08-21] MEDS: Isosorbide Mononitrate 30 MG ER.TAB PO SCH (09:13)
[2023-08-21] MEDS: Ezetimibe 10 MG TAB PO SCH (09:13)
[2023-08-21] MEDS: Polyethylene Glycol 3350 17 GM Packet PO SCH (09:13)
[2023-08-21] MEDS: Rosuvastatin 10 MG TAB PO SCH (09:13)
[2023-08-21] MEDS: Rivaroxaban 10 MG TAB PO SCH (09:13)
[2023-08-21] MEDS: HYDROcodone/Acetaminophen 5/325 mg Tablet PO PRN (14:56)
[2023-08-21] MEDS: Lorazepam 1 MG TAB PO PRN (20:33)
[2023-08-22] MEDS: HYDROcodone/Acetaminophen 5/325 mg Tablet PO SCH ×2 (05:03→12:09)
[2023-08-22 08:20] VITALS: BP 107/61; TEMP 97.3
[2023-08-22] MEDS: Polyethylene Glycol 3350 17 GM Packet PO SCH (08:27)
[2023-08-22] MEDS: Senokot S 8.6-50 MG TAB PO SCH (08:28)
[2023-08-22] MEDS: Loratadine 10 MG TAB PO SCH (08:28)
[2023-08-22] MEDS: Gabapentin 100 MG CAP PO SCH ×2 (08:28→15:14)
[2023-08-22] MEDS: Ezetimibe 10 MG TAB PO SCH (08:29)
[2023-08-22] MEDS: HYDROcodone/Acetaminophen 5/325 mg Tablet PO PRN ×2 (08:29→16:57)
[2023-08-22] MEDS: Isosorbide Mononitrate 30 MG ER.TAB PO SCH (08:29)
[2023-08-22] MEDS: Rivaroxaban 10 MG TAB PO SCH (08:29)
[2023-08-22] MEDS: Rosuvastatin 10 MG TAB PO SCH (08:29)
[2023-08-22] MEDS: Diclofenac 1% 100 GM Topical GEL TP SCH ×3 (08:31→16:59)
[2023-08-22] MEDS ORDERED: HYDROcodone/Acetaminophen 5/325 mg Tablet PO SCH (18:00)
== END 2023-08-22 18:47 | disposition hospice, home (50) | DRG 948 ==
LOC: MADMS 08-13 09:49
PROVIDERS: ADMIT Family Medicine; ATTEND Family Medicine
DX: R53.81 Other malaise (principal); R53.1 Weakness; K59.00 Constipation, unspecified; Z66 Do not resuscitate; I10 Essential (primary) hypertension; M40.209 Unspecified kyphosis, site unspecified; W18.30XD Fall on same level, unspecified, subsequent encounter; H66.92 Otitis media, unspecified, left ear; I25.10 Atherosclerotic heart disease of native coronary artery without angina pectoris; S42.302D Unspecified fracture of shaft of humerus, left arm, subsequent encounter for fracture with routine healing; Z85.038 Personal history of other malignant neoplasm of large intestine; Z86.73 Personal history of transient ischemic attack (TIA), and cerebral infarction without residual deficits; Z86.711 Personal history of pulmonary embolism; Z86.718 Personal history of other venous thrombosis and embolism
CPT/HCPCS: 36415; 82565; 85014; 85018; 85049; Q0162